=== PATIENT | female | born 1965 | race Caucasian/White ===

== ENCOUNTER 2017-04-04 14:15 | Inpatient (IN) ==
[2017-04-04] MEDS ORDERED: 0.9 % Sodium Chloride 1,000 ML IVC ONE (15:13)
[2017-04-04] MEDS ORDERED: *HR* HYDROmorphone 2 MG/ML SYRINGE IVP ONE ×2 (15:21→16:27)
[2017-04-04] MEDS ORDERED: Ondansetron 4 MG/2 ML VIAL IVP PRN (15:21)
--- NOTE | 2017-04-04 15:33 | Emergency Department Note ---
Disposition Clinical Impression: Left leg pain, Vascular occlusion, Arterial occlusion, Peripheral vascular disease, Lower extremity arterial insufficiency, severe, left Disposition: Still a Patient Condition: Critical Referrals: Mazin Wan MD [Primary Care Provider] - Forms: ED Satisfaction Letter Extremity Problem HPI - General Chief complaint: ED Extremity Problem,Nontraumatic Stated complaint: LLE discoloration/pain Time Seen by Provider: 04/04/17 14:26 Source: patient, family Mode of arrival: wheelchair Limitations: no limitations Nursing Notes Reviewed: Yes Vital Signs Reviewed: Yes - History of Present Illness HPI Narrative: 52-year-old female presenting to the emergency department with left lower extremity pain and paresthesia. She says it started about 11 PM last night and has progressively been moving up her leg from her ankle to her knee. She came to the emergency room last night waited for approximately 2 hours in the waiting room and decided she did not want to wait any longer and left. She has severe 10 out of 10 pain around her knee, below her knee she is completely numb. She describes her pain as a sharp burning sensation. Moving the extremity makes the pain significantly worse. She states she was recently diagnosed with stage IV small cell lung cancer in November. She has had one session of chemotherapy. This was approximately 3 weeks ago. Pt Subjective Complaint: extremity pain, cold extremity Consistency: constant, Worsening Injury Location: left Pain Scale: 10 Quality: burning, sharp Improves with: nothing Worsens with: range of motion, weight bearing, walking Associated symptoms: Reports: denies other symptoms Context: history of peripheral vascular disease - Related Data Home Medications Medication Instructions Recorded Confirmed Metoprolol [Lopressor] 25 mg PO BID 01/27/16 03/29/17 metFORMIN [Glucophage] 500 mg PO BID 01/27/16 03/29/17 Diclofenac Sodium [Voltaren] 1 appl TP QID PRN 01/09/17 03/29/17 Dexamethasone 2 tab PO BID 03/29/17 03/29/17 Lactose-Reduced Food [Ensure 237 ml PO TID 03/29/17 03/29/17 Enlive] Morphine Sulfate SR (12 HR) [MS 1 tab PO Q12HR 03/29/17 03/29/17 Contin] Oxycodone HCl 1 - 2 tab PO Q4-6H PRN 03/29/17 03/29/17 metFORMIN [Glucophage] 500 mg PO BIDWM 03/29/17 03/29/17 Previous Rx's Medication Instructions Recorded Docusate [Colace] 100 mg PO BID #60 capsule 01/26/17 Pregabalin [Lyrica] 75 mg PO BID #60 capsule 01/26/17 Sennosides [Senna] 8.6 mg PO BID #60 tablet 01/26/17 Prochlorperazine Maleate 10 mg PO Q6HR PRN #90 tablet 01/31/17 [Compazine] GuaiFENesin/Codeine [ROBITUSSIN 5 ml PO Q8HR PRN #120 ml 02/15/17 w/CODEINE] Citalopram Hydrobromide [Celexa] 40 mg PO DAILY #30 tab 02/20/17 Megestrol Acetate [Megace] 10 ml PO DAILY #300 mls 02/20/17 Morphine Sulfate SR (12 HR) [MS 3 tab PO Q8HR #270 tab 02/20/17 Contin] Temazepam [Restoril] 7.5 mg PO HS #30 capsule 02/20/17 LORazepam [Ativan] 0.5 - 1 mg PO BID PRN #30 tablet 03/05/17 Magic Mouthwash [Magic Mouthwash 10 ml PO QID PRN #240 ml 03/13/17 BLM] Lactose-Reduced Food [Ensure 237 ml PO TID #90 liquid 03/14/17 Enlive] Morphine Sulfate [Arymo ER] 30 mg PO BID #30 tab.po.er 03/29/17 Oxycodone HCl 10 mg PO Q2H PRN #150 tab 03/29/17 Allergies Allergy/AdvReac Type Severity Reaction Status Date / Time gabapentin Allergy Dizziness Verified 04/04/17 14:53 iodine Allergy Hives Verified 04/04/17 14:53 metronidazole [From Flagyl] Allergy Hives Verified 04/04/17 14:53 Penicillins Allergy Anaphylaxis Verified 04/04/17 14:53 All systems ED: reviewed and negative except as stated. Constitutional: Denies: fever, chills Cardiovascular: Denies: chest pain, palpitations, syncope Respiratory: Denies: wheezes, hemoptysis, stridor Gastrointestinal: Reports: as per HPI Genitourinary: Reports: as per HPI Musculoskeletal: Reports: as per HPI Integumentary: Reports: as per HPI Neurological: Reports: as per HPI Psychiatric: Reports: as per HPI Endocrine: Reports: as per HPI Hematological/Lymphatic: Reports: as per HPI Allergic/Immunologic: Reports: as per HPI Past Medical History - Past Medical History Medical history: Reports: cancer, diabetes, hypertension, other Surgical history: Reports: , cholecystectomy, hysterectomy, splenectomy Psychiatric history: Reports: anxiety, depression - Social History Smoking Status: Current every day smoker Smokeless Tobacco Status: No Alcohol use: Reports: none Drug use: Reports: none Physical Exam - General Limitations: no limitations General appearance: alert - Head Head exam: atraumatic, normocephalic, normal inspection - ENT ENT exam: normal exam, normal oropharynx - Neck Neck exam: Present: normal inspection, full ROM - Chest Chest inspection: Present: normal inspection, symmetric chest wall rise - Respiratory Respiratory exam: Present: normal lung sounds bilaterally - Cardiovascular Cardiovascular exam: Present: regular rate, normal rhythm, normal heart sounds - Abdominal Exam Abdominal exam: Present: soft, Non-Tender. Absent: tenderness, distention, guarding, rebound, rigidity - Expanded Lower Extremity Exam Upper leg exam: Present: laceration. Absent: swelling, ecchymosis Knee exam: Present: tenderness, erythema, pain with valgus, pain with varus Lower leg exam: Present: erythema, other (Cold on palpation, parasthesia) Foot/toe exam: Present: erythema, other (cold, parasthesias ) Neurovascular/Tendon exam: Present: pulse deficit, motor deficit, sensory deficit, extremity cold to touch, significant pain with passive ROM of distal joint. Absent: normal capillary refill, normal 2-point discrimination - Psychiatric Psychiatric exam: Present: normal affect, normal mood - Skin Skin exam: Present: warm, dry, intact, other (Left lower extremity appears red and mottled below the knee.) Course Course Narrative: 52-year-old female presents to the emergency department with a cold and numb left lower extremity from the knee distally. She has no history of A. fib or other clotting issues. She states she is currently being treated for stage IV small cell lung carcinoma. She also describes a history of peripheral vascular disease with stent placement in her femoral artery. On bedside Doppler, the posterior tibial and popliteal vessels have no blood flow. The femoral artery has moderate to mild flow. Pain medicine was ordered for the patient and an order for ABIs were placed. - Reevaluation(s) Reevaluation #1: ABIs were completed which shows the PT and DP pulses to be 0. ABIs on the left side are [address] Adan the vascular surgeon ent surgeon who recommended a CT aortogram with runoff and a heparin drip. The patient is allergic to iodine therefore we will give the patient Benadryl per protocol of the CT department before the CT aortogram. She states her allergic reaction consists of itching. Spoke to patient about risks of allergic reaction and she understands and agrees with going forward with the CT aortogram. we believe the importance of the CT aortogram greatly outweighs the risk of an allergic reaction to the iodine. Time: 16:15 Reevaluation #2: Upon reentry into the room, the patient states that her previous episode was more severe than itching. She states she felt she stopped breathing. She is not comfortable with going forward with the CT scan. A call out to the vascular surgeon Dr. Adan has been done. Time: 16:39 Reevaluation #3: The attending Dr. Plascencia spoke with Dr. Adan vascular surgeon. He recommends we perform an aortoiliac duplex and a left lower extremity arterial duplex. These have been ordered. Time: 16:47 Vital Signs Temperature 97.4 F L 04/04/17 14:49 Pulse Rate 73 04/04/17 14:49 Respiratory Rate 18 04/04/17 14:49 Blood Pressure 159/55 04/04/17 14:49 O2 Sat by Pulse Oximetry 100 04/04/17 14:49 Temperature 97.4 F L 04/04/17 14:49 Pulse Rate 73 04/04/17 14:49 Respiratory Rate 18 04/04/17 14:49 Blood Pressure 159/55 04/04/17 14:49 O2 Sat by Pulse Oximetry 100 04/04/17 14:49 Oxygen Delivery Oxygen Delivery Room Air Extremity Problem, Nontraumati - Medical Records Medical records reviewed: Yes I reviewed the patient's medical records. - Lab Data Lab results reviewed: Yes I reviewed the patient's lab results. - Radiology Data Radiology results reviewed: Yes I reviewed the patient's radiology results. - EKG Data EKG results narrative: Here rate is 73. Normal sinus rhythm. Normal axis. CA interval 147. QRS 86. QTc 430 Critical Care Time Critical Care Time: Yes Total Critical Care Time: 35 Attestation: Critical care time spent and medical management of acute life-threatening limb injury with occlusions of the arterial vessels of the left lower extremity requiring heparin as well as consultation with vascular surgery.
[2017-04-04] MEDS ORDERED: *HR* Heparin 5,000 UNIT/ML VIAL IVP ONE (16:19)
[2017-04-04] MEDS ORDERED: *HR* Heparin 5,000 UNIT/ML VIAL IVP PRN ×2 (16:19)
[2017-04-04] MEDS ORDERED: Heparin 25,000 UNIT/500 ML D5W 25,000 UNIT/500 ML MLS IVC SCH (16:30)
[2017-04-04] MEDS ORDERED: *HR* HYDROmorphone (PF) 1 MG/ML SYRINGE IVP ONE (16:51)
[2017-04-04 17:01] LABS: INR 1.6
[2017-04-04 17:03] LABS: Activated Partial Thrombo Time 27.7 Seconds (26.0-36.0)
[2017-04-04 17:07] LABS: BUN/Creatinine Ratio 17 (6-26); Blood Urea Nitrogen 13 mg/dL (7-20); Calcium 8.6 mg/dL (8.6-10.8); Carbon Dioxide 19 mEq/L (19-29); Chloride 97 mEq/L (98-109); Glucose 126 mg/dL (70-99); Osmolality,Calculated 260 (280-300); Potassium 4.8 mEq/L (3.5-4.5); Sodium 124 mEq/L (136-145); eGFR For African Americans > 60 (> 60); eGFR For Non-African Americans > 60 (> 60)
--- NOTE | 2017-04-04 17:11 | Emergency Department Note ---
Disposition Clinical Impression: Left leg pain, Vascular occlusion, Arterial occlusion, Peripheral vascular disease, Lower extremity arterial insufficiency, severe, left Disposition: Admitted As Inpatient Condition: Critical Referrals: Mazin Wan MD [Primary Care Provider] - Forms: ED Satisfaction Letter Time of Disposition: 17:24 Extremity Problem HPI - General Chief complaint: ED Extremity Problem,Nontraumatic Stated complaint: LLE discoloration/pain Time Seen by Provider: 04/04/17 14:26 Source: patient, family Mode of arrival: wheelchair Limitations: no limitations Nursing Notes Reviewed: Yes Vital Signs Reviewed: Yes - History of Present Illness HPI Narrative: 52-year-old female with history of hypertension, peripheral vascular disease with history of right femoropopliteal in 2013, arrives [facility] emergency department complaining of 2 days of left lower extremity pain and reduced sensation. The patient states that she came to the emergency department last night but she was not evaluated because she did not wait in line. The patient arrives here to the emergency department in large amount of plain in her left lower extremity with decreased sensation. The patient has a cold, pulseless, ecchymotic left lower extremity. The patient has no DP or PT pulses with an KODY that read 0 on both PT and DP pulses. The patient was initially signed out by Dr. Whitney. The patient had KODY here in the emergency department as well as labs. After speaking with Dr. Adan in vascular surgery, he requested that we perform CT in portogram with runoff but the patient has an allergy that is apparently anaphylaxis to iodine dye. After giving a call back to Dr. Adan, he requested arterial Doppler studies. These are being performed at this time. The patient was placed on heparin drip as well. After we obtain Doppler studies, we will reconsult Dr. Adan and determine plan and disposition. Consistency: constant, Worsening Injury Location: left Pain Scale: 10 Quality: burning, sharp Improves with: nothing Worsens with: range of motion, weight bearing, walking Associated symptoms: Reports: denies other symptoms - Related Data Home Medications Medication Instructions Recorded Confirmed Metoprolol [Lopressor] 25 mg PO BID 01/27/16 03/29/17 metFORMIN [Glucophage] 500 mg PO BID 01/27/16 03/29/17 Diclofenac Sodium [Voltaren] 1 appl TP QID PRN 01/09/17 03/29/17 Dexamethasone 2 tab PO BID 03/29/17 03/29/17 Lactose-Reduced Food [Ensure 237 ml PO TID 03/29/17 03/29/17 Enlive] Morphine Sulfate SR (12 HR) [MS 1 tab PO Q12HR 03/29/17 03/29/17 Contin] Oxycodone HCl 1 - 2 tab PO Q4-6H PRN 03/29/17 03/29/17 metFORMIN [Glucophage] 500 mg PO BIDWM 03/29/17 03/29/17 Previous Rx's Medication Instructions Recorded Docusate [Colace] 100 mg PO BID #60 capsule 01/26/17 Pregabalin [Lyrica] 75 mg PO BID #60 capsule 01/26/17 Sennosides [Senna] 8.6 mg PO BID #60 tablet 01/26/17 Prochlorperazine Maleate 10 mg PO Q6HR PRN #90 tablet 01/31/17 [Compazine] GuaiFENesin/Codeine [ROBITUSSIN 5 ml PO Q8HR PRN #120 ml 02/15/17 w/CODEINE] Citalopram Hydrobromide [Celexa] 40 mg PO DAILY #30 tab 02/20/17 Megestrol Acetate [Megace] 10 ml PO DAILY #300 mls 02/20/17 Morphine Sulfate SR (12 HR) [MS 3 tab PO Q8HR #270 tab 02/20/17 Contin] Temazepam [Restoril] 7.5 mg PO HS #30 capsule 02/20/17 LORazepam [Ativan] 0.5 - 1 mg PO BID PRN #30 tablet 03/05/17 Magic Mouthwash [Magic Mouthwash 10 ml PO QID PRN #240 ml 03/13/17 BLM] Lactose-Reduced Food [Ensure 237 ml PO TID #90 liquid 03/14/17 Enlive] Morphine Sulfate [Arymo ER] 30 mg PO BID #30 tab.po.er 03/29/17 Oxycodone HCl 10 mg PO Q2H PRN #150 tab 03/29/17 Allergies Allergy/AdvReac Type Severity Reaction Status Date / Time gabapentin Allergy Dizziness Verified 04/04/17 14:53 iodine Allergy Hives Verified 04/04/17 14:53 metronidazole [From Flagyl] Allergy Hives Verified 04/04/17 14:53 Penicillins Allergy Anaphylaxis Verified 04/04/17 14:53 All systems ED: reviewed and negative except as stated. Constitutional: Denies: fever, chills Cardiovascular: Denies: chest pain, palpitations, syncope Respiratory: Denies: wheezes, hemoptysis, stridor Gastrointestinal: Reports: as per HPI Genitourinary: Reports: as per HPI Musculoskeletal: Reports: as per HPI Integumentary: Reports: as per HPI Neurological: Reports: as per HPI Psychiatric: Reports: as per HPI Endocrine: Reports: as per HPI Hematological/Lymphatic: Reports: as per HPI Allergic/Immunologic: Reports: as per HPI Past Medical History - Past Medical History Attestation: Yes The following information was validated with the patient. Source: patient, old records reviewed Medical history: Reports: cancer, diabetes, hypertension, other Surgical history: Reports: , cholecystectomy, hysterectomy, splenectomy , LE bypass (Right LE fem-pop) Psychiatric history: Reports: anxiety, depression - Social History Smoking Status: Current every day smoker Smokeless Tobacco Status: No Alcohol use: Reports: none Drug use: Reports: none Physical Exam - General Limitations: no limitations General appearance: alert, in no apparent distress - Head Head exam: atraumatic, normocephalic, normal inspection - Eye Eye exam: Present: normal appearance, PERRL, EOMI - ENT ENT exam: normal exam, normal oropharynx, mucous membranes moist - Neck Neck exam: Present: normal inspection, full ROM, trachea midline - Chest Chest inspection: Present: normal inspection, symmetric chest wall rise - Respiratory Respiratory exam: Present: normal lung sounds bilaterally - Cardiovascular Cardiovascular exam: Present: regular rate, normal rhythm, normal heart sounds - Abdominal Exam Abdominal exam: Present: soft, Non-Tender. Absent: tenderness, distention, guarding, rebound, rigidity - Expanded Lower Extremity Exam Lower leg exam: Present: tenderness, ecchymosis, other (No palpable pulse distant to thready femoral pulse on left. No DP or PT pulse on left. Ecchymothic and cold LLE. ) Course - Consultations Consultation #1: After speaking with the vascular surgeon, Dr. Adan, he states that he will take the patient to the operating room this evening. The patient has been placed on a heparin drip. Patient's consent for surgery has been placed by vascular surgery. Time: 17:23 Vital Signs Temperature 97.4 F L 04/04/17 14:49 Pulse Rate 73 04/04/17 14:49 Respiratory Rate 18 04/04/17 14:49 Blood Pressure 159/55 04/04/17 14:49 O2 Sat by Pulse Oximetry 100 04/04/17 14:49 Temperature 97.4 F L 04/04/17 14:49 Pulse Rate 73 04/04/17 14:49 Respiratory Rate 18 04/04/17 14:49 Blood Pressure 159/55 04/04/17 14:49 O2 Sat by Pulse Oximetry 100 04/04/17 14:49 Oxygen Delivery Oxygen Delivery Room Air Extremity Problem, Nontraumati - Lab Data Result diagrams: 04/04/17 16:44 Lab Results 04/04/17 04/04/17 04/04/17 Range/Units 16:44 16:44 16:46 PT 17.0 H (9.4-12.1) Seconds INR 1.6 APTT 27.7 (26.0-36.0) Seconds Sodium 124 L (136-145) mEq/L Potassium 4.8 H (3.5-4.5) mEq/L Chloride 97 L (98-109) mEq/L Carbon Dioxide 19 (19-29) mEq/L BUN 13 (7-20) mg/dL Creatinine 0.78 (0.57-1.11) mg/dL Est GFR ( Amer) > 60 (> 60) Est GFR (Non-Af Amer) > 60 (> 60) BUN/Creatinine Ratio 17 (6-26) Glucose 126 H (70-99) mg/dL Calculated Osmolality 260 L (280-300) Lactic Acid 2.1 (0.5-2.2) mmol/L Calcium 8.6 (8.6-10.8) mg/dL
--- NOTE | 2017-04-04 17:29 | Anesthesia Evaluation PreOp ---
Date of Encounter: 04/04/17 Time of Encounter: 17:58 - Past History Planned Operation: L Leg revascularization Cardiac History: Denies any Significant Hx Pulmonary History: Smoker, COPD, Other (stage IV metastatic lung CA) [employer] History: Denies Any Significant HX Other Medical History: Denies Any Significant HX Anesthesia History: No Prior Anesthetic Complications Alcohol Use: none Drug use: none Medications and Allergies Metoprolol [Lopressor] 25 mg PO BID 01/27/16 [History] metFORMIN [Glucophage] 500 mg PO BID 01/27/16 [History] Diclofenac Sodium [Voltaren] 1 appl TP QID PRN 01/09/17 [History] Docusate [Colace] 100 mg PO BID #60 capsule 01/26/17 [Rx] Pregabalin [Lyrica] 75 mg PO BID #60 capsule 01/26/17 [Rx] Sennosides [Senna] 8.6 mg PO BID #60 tablet 01/26/17 [Rx] Prochlorperazine Maleate [Compazine] 10 mg PO Q6HR PRN #90 tablet 01/31/17 [Rx] GuaiFENesin/Codeine [ROBITUSSIN w/CODEINE] 5 ml PO Q8HR PRN #120 ml 02/15/17 [Rx ] Citalopram Hydrobromide [Celexa] 40 mg PO DAILY #30 tab 02/20/17 [Rx] Megestrol Acetate [Megace] 10 ml PO DAILY #300 mls 02/20/17 [Rx] Morphine Sulfate SR (12 HR) [MS Contin] 3 tab PO Q8HR #270 tab 02/20/17 [Rx] Temazepam [Restoril] 7.5 mg PO HS #30 capsule 02/20/17 [Rx] LORazepam [Ativan] 0.5 - 1 mg PO BID PRN #30 tablet 03/05/17 [Rx] Magic Mouthwash [Magic Mouthwash BLM] 10 ml PO QID PRN #240 ml 03/13/17 [Rx] Lactose-Reduced Food [Ensure Enlive] 237 ml PO TID #90 liquid 03/14/17 [Rx] Dexamethasone 2 tab PO BID 03/29/17 [History] Lactose-Reduced Food [Ensure Enlive] 237 ml PO TID 03/29/17 [History] Morphine Sulfate SR (12 HR) [MS Contin] 1 tab PO Q12HR 03/29/17 [History] Morphine Sulfate [Arymo ER] 30 mg PO BID #30 tab.po.er 03/29/17 [Rx] Oxycodone HCl 1 - 2 tab PO Q4-6H PRN 03/29/17 [History] Oxycodone HCl 10 mg PO Q2H PRN #150 tab 03/29/17 [Rx] metFORMIN [Glucophage] 500 mg PO BIDWM 03/29/17 [History] Allergies gabapentin Allergy (Verified 04/04/17 14:53) Dizziness iodine Allergy (Verified 04/04/17 14:53) Hives metronidazole [From Flagyl] Allergy (Verified 04/04/17 14:53) Hives Penicillins Allergy (Verified 04/04/17 14:53) Anaphylaxis - Meds/Allergy Pre-op Review Medications Reviewed: Yes Allergies Reviewed: Yes Beta Blockers on Current Med List: Yes Anesthesia Results - Labs 04/04/17 16:44 - Imaging EKG: report reviewed, image reviewed (SR; LAE) Additional studies: TTE: LVEF 50-55% no significant valvular disease no tamponade Anesthesia Exam Last Vital Signs Temp 97.4 F L 04/04/17 14:49 Pulse 73 04/04/17 14:49 Resp 18 04/04/17 14:49 BP 159/55 04/04/17 14:49 Pulse Ox 100 04/04/17 14:49 Weight: 37 kg (BMI 13.6) - HEENT Pupil (Motor): Pupils equal, EOMI Mallampati: II - [employer] LOC: Oriented [employer] Motor: Deficit LLE - Cardiac Rhythm: Regular Murmur: None - Pulmonary Breath Sounds: bilateral Clear Respiratory Effort: Symmetrical Anesthesia Assess/Plan ASA Score: 4, E Modified [place] Scale for Level of Consciousness: Cooperative, oriented, and tranquil Anesthetic Plan: General Monitoring Plan: Standard Monitors, A-Line Recovery Plan: PACU
[2017-04-04] MEDS ORDERED: Heparin 1,000 UNITS/500 mL NS 500 ML ONE (17:37)
--- NOTE | 2017-04-04 17:39 | Vascular/Endovascular H&P ---
Date of Encounter: 04/07/17 Time of Encounter: 17:00 Assessment and Plan (1) Ischemia of left lower extremity Current Visit: Yes Status: Acute The patient has acute left lower extremity ischemia of more than 24 hours duration. She has lost motor function in the left foot. She has minimal sensation in the left foot. Her arterial duplex reveals a left popliteal and tibial artery occlusion. She has an occluded left common iliac artery as well. Her pulse exam is diminished. She has pulsatile flow in the common and superfical femoral arteries by duplex. The patient has been scheduled for emergency thrombectomy with possible bypass. The risks, benefits and alternatives were discussed and all questions were answered. The patient was informed that due to her delayed presentation and severity of ischemia noted on clinical exam, she is at high risk for limb loss. (2) Essential hypertension Current Visit: Yes Status: Acute (3) Lung cancer Current Visit: Yes Status: Acute Qualifiers: Laterality: unspecified laterality Lung location: unspecified part of lung Qualified Code(s): C34.90 - Malignant neoplasm of unspecified part of unspecified bronchus or lung (4) Diabetes type 2, uncontrolled Current Visit: Yes Status: Acute Qualifiers: Diabetes mellitus complication status: with circulatory complication Diabetes mellitus complication detail: with peripheral angiopathy without gangrene Diabetes mellitus emt intermediate insulin use: unspecified penitentiary insulin use status Qualified Code(s): E11.51 - Type 2 diabetes mellitus with diabetic peripheral angiopathy without gangrene; E11.65 - Type 2 diabetes mellitus with hyperglycemia (5) Diabetes Current Visit: No Status: Acute Qualifiers: Diabetes mellitus type: due to underlying condition Diabetes mellitus complication status: without complication Diabetes mellitus emt intermediate insulin use: without emt intermediate use Qualified Code(s): E08.9 - Diabetes mellitus due to underlying condition without complications (6) Tobacco abuse Current Visit: Yes Status: Acute (7) Deep vein thrombosis (DVT) Current Visit: Yes Status: Acute The patient was noted to have a large left lower extremity DVT on duplex during her arterial study. She will require anticoagulation. Qualifiers: DVT location: lower extremity Affected thrombotic vein of extremity: femoral Chronicity: acute Laterality: left Qualified Code(s): I82.412 - Acute embolism and thrombosis of left femoral vein (8) Chronic anemia Current Visit: Yes Status: Chronic The patient has chronic anemia. She has previously required blood transfusion. Her hemoglobin is currently 4.2. She will receive 2 units of PRBCs now and then proceed with emergency surgery. History of Present Illness Chief complaint: Left leg pain HPI: Ms. Genao is a 52 year old female with a history of peripheral vascular disease who was recently diagnosed with stage IV lung cancer. She has undergone radiation therapy. The patient reports that she developed left leg pain yesterday. She came to the ER, but then went home after staying for only 15 minutes. She returned to the ER today with compaints of a cold pulses left lower extremity without the ability to move it. She also had severely decreased sensation. She underwent vascular labs and they were abnormal. vascular surgery was then consulted for further evaluation. She severe left foot pain and parasthesias. She denies any palpitations. She denies chest pain or shortness of breath. Past Med Surg Social Fam HX - Past Medical History Medical history: cancer, diabetes, hypertension, other Psychiatric history: anxiety, depression - Past Surgical History Surgical History: , cholecystectomy, hysterectomy, splenectomy, LE bypass (Right LE fem-pop) - Social History Smoking Status: Current every day smoker Smokeless Tobacco Status: No Alcohol use: none Drug use: none Medications and Allergies Metoprolol [Lopressor] 25 mg PO BID 01/27/16 [History] Diclofenac Sodium [Voltaren] 1 appl TP QID PRN 01/09/17 [History] Docusate [Colace] 100 mg PO BID #60 capsule 01/26/17 [Rx] Pregabalin [Lyrica] 75 mg PO BID #60 capsule 01/26/17 [Rx] Sennosides [Senna] 8.6 mg PO BID #60 tablet 01/26/17 [Rx] Prochlorperazine Maleate [Compazine] 10 mg PO Q6HR PRN #90 tablet 01/31/17 [Rx] GuaiFENesin/Codeine [ROBITUSSIN w/CODEINE] 5 ml PO Q8HR PRN #120 ml 02/15/17 [Rx ] Citalopram Hydrobromide [Celexa] 40 mg PO DAILY #30 tab 02/20/17 [Rx] Megestrol Acetate [Megace] 10 ml PO DAILY #300 mls 02/20/17 [Rx] Temazepam [Restoril] 7.5 mg PO HS #30 capsule 02/20/17 [Rx] LORazepam [Ativan] 0.5 - 1 mg PO BID PRN #30 tablet 03/05/17 [Rx] Magic Mouthwash [Magic Mouthwash BLM] 10 ml PO QID PRN #240 ml 03/13/17 [Rx] Lactose-Reduced Food [Ensure Enlive] 237 ml PO TID #90 liquid 03/14/17 [Rx] Dexamethasone 4 mg PO DAILY 03/29/17 [History] Oxycodone HCl 10 mg PO Q2H PRN #150 tab 03/29/17 [Rx] metFORMIN [Glucophage] 500 mg PO BIDWM 03/29/17 [History] Morphine Sulfate [Arymo ER] 60 mg PO BID 04/05/17 [History] Allergies gabapentin Allergy (Verified 04/04/17 14:53) Dizziness iodine Allergy (Verified 04/04/17 14:53) Hives metronidazole [From Flagyl] Allergy (Verified 04/04/17 14:53) Hives Penicillins Allergy (Verified 04/04/17 14:53) Anaphylaxis All Systems Review: A 10-system review of systems was performed and is negative for pertinent findings except as documented above in the HPI. - Constitutional Constitutional: anorexia, no chills, no fever(s) - Cardiovascular Cardiovascular: no chest pain at rest, no chest pain with exertion, no dyspnea at rest, no dyspnea on exertion Exam Vital Signs, Last 4 Hours Temp Pulse Resp BP Pulse Ox 04/04/17 14:49 97.4 F L 73 18 159/55 100 General: Present: Conversant, No Apparent Distress, Other (thin, cachectic) HEENT: Present: Atraumatic, Normocephaly, Trachea midline, Pupils equal Neck: Absent: JVD, Left Carotid bruit, Right Carotid bruit Cardiac: Present: Reg Rate and Rhythm, Normal S1 and S2, No Murmur Lungs: Present: Normal Breath Sounds, No Wheeze, Rales, Rhonchi Neuro: Present: Alert and responsive, Motor nerves grossly intact (ecept no motor function in left foot), Sensory nerves grossly intact (decreased sensation left foot) Abdomen: Present: Soft, Non-tender. Absent: Masses Vascular: Present: Pulse, absent (left dorsalis pedia and posterior tibial arteries.), Pulse, normal (right lower extremity), Cyanosis (left foot and calf with mottling to left proximal leg), Color/Temperature (left foot and leg cool) Skin: Present: No rashes noted on visualized skin Results 04/07/17 03:45 04/07/17 03:45 Lab Results, Last 24 hours 04/04/17 04/04/17 16:44 16:46 INR 1.6 APTT 27.7 Sodium 124 L Potassium 4.8 H Chloride 97 L Carbon Dioxide 19 BUN 13 Creatinine 0.78 Glucose 126 H Calcium 8.6 - Imaging / Other Tests Non Invasive Vascular Testing: image reviewed (No left distal popliteal or tibial flow noted, Incidental left lower extremity DVT noted on arterial study.)
[2017-04-04] MEDS ORDERED: Vancomycin 1,000 MG VIAL ONE (17:42)
[2017-04-04] MEDS ORDERED: Heparin 1,000 UNITS/500 mL NS 1,000 ML ONE (17:42)
[2017-04-04 18:15] LABS: Mean Corpuscular Hemoglobin 27.5 pg (28.0-33.3); Mean Platelet Volume 10.9 fL (9.4-12.4); Nucleated Red Blood Cells 9.9 /100 WBC (0); Platelet Count 470 K/mcL (140-400); Red Blood Count 1.53 M/mcL (3.82-4.97); Red Cell Distribution Width 23.5 % (11.5-14.5)
[2017-04-04 18:18] LABS: Mean Corpuscular Volume 86.9 fL (83.0-100.0)
[2017-04-04 18:19] LABS: Mean Corpuscular HGB Conc 31.6 g/dL (31.6-35.5)
[2017-04-04] MEDS ORDERED: Lidocaine -MPF 2% 2 ML VIAL ONE (18:20)
[2017-04-04] MEDS ORDERED: *HR* Heparin 5,000 UNIT/ML VIAL ONE (18:20)
[2017-04-04] MEDS ORDERED: *HR* Propofol 200 MG/20 ML VIAL IVP ONE (18:20)
[2017-04-04] MEDS ORDERED: Ondansetron 4 MG/2 ML VIAL ONE ×2 (18:20→21:32)
[2017-04-04] MEDS ORDERED: Dexamethasone 4 MG/ML VIAL ONE ×2 (18:20→21:32)
[2017-04-04] MEDS ORDERED: *HR* Midazolam HCl 2 MG/2 ML VIAL ONE (18:20)
[2017-04-04] MEDS ORDERED: *HR* Rocuronium Bromide 50 MG/5 ML VIAL ONE (18:20)
[2017-04-04] MEDS ORDERED: *HR* Phenylephrine 10 MG/ML VIAL ONE (18:20)
[2017-04-04] MEDS ORDERED: *HR* Succinylcholine 200 MG/10 ML VIAL IVP ONE (18:20)
[2017-04-04] MEDS ORDERED: *HR* FentaNYL (PF) 100 MCG/2 ML VIAL ONE (18:20)
[2017-04-04 18:21] LABS: Hematocrit 13.3 % (35.3-44.9); Hemoglobin 4.2 g/dL (11.5-15.4)
[2017-04-04 18:47] LABS: Monocytes # 1.8 K/mcL (0.0-1.3)
[2017-04-04 18:49] LABS: Anisocytosis 3+ (Not Present); Hypochromasia Present (Not Present)
[2017-04-04 18:57] LABS: Basophilic Stippling 3+ (Not Present); Howell-Jolly Bodies 3+ (Not Present); Platelet Estimate Normal (Normal)
[2017-04-04 18:58] LABS: Polychromasia 3+ (Not Present)
[2017-04-04] MEDS ORDERED: Clindamycin 600 MG/50 ML 600 MG/50 ML IV.SOLN IVPB ONE (19:56)
--- NOTE | 2017-04-04 21:16 | Operative Note ---
Date of procedure: 04/04/17 Pre-op diagnosis: Acute left lower extremity ichemia Post-op diagnosis: same Procedure: Left lower extremity thrombectomy via leg incision using 3, 4 and 5 tur[place] islander rafa embolectomy catheters. Complications: None Anesthesia: KAMIA Surgeon: Chema Adan Estimated blood loss (cc): 50 Specimen: left lower extremity thrombus Condition: stable Disposition: PACU Procedure in Detail: Indications: The patient is a 52 year old female with a history of peripheral vascular disease who developed acute leg pain yesterday. She presented to the ER, but left after 15 minutes. She returned today with a cold and pulseless left lower extremity. She was found to have no motor function and markedly diminished sensation. Her KODY was 0.0. Emergent revascularization was recommended for possible limb salvage. Procedure: The patient was identified in the preoperative area. The risks, benefits and alternatives were discussed and all questions were answered. The patient was taken to the operating room and placed in the supine position on the operating room table. After the induction of general endotracheal anesthesia, the patient was prepped and draped in the normal sterile fashion. An oblique incision was made in the left medial leg sharply. Hemostasis was then obtained with electrocautery. Through a process of blunt, sharp and electrocautery dissection, the subcutanesous tissues and facial layers were traversed. The popliteal, anterior tibial and tibioperoneal trunk arteries were dissected and surrounded with vessel loops. The patient received a bolus of heparin and the vessels were occluded with the vessel loops. A transverse arteriotomy was made low on the left popliteal artery. No flow was noted on release of the proximal loop. A 4 [place] islander rafa catheter was passed into the proximally and inflated. It was withdrawn and significant acute thrombus and chronic embolic material was retrieved. Sluggish flow was noted. A 5 [place] islander was then passed proximally and additional thrombus was retrieved. After multiple negative passes pulsatile antegrade flow was noted. Heparinized saline was infused into the lumen and the vessel was reoccluded. A 3 [place] island[place] rafa catheter was passed distally into the tibioperoneal trunk and anterior tibial arteries. Thrombus was retrieved from each vessel. After multiple negative passes, no additional thrombus was retrieved. No significant retrograde flow was noted. The vessels were flushed with heparinized saline. The arteriotomy was reapproximated with 6-0 Prolene. Flow was restored. A polyphasic signal was present in the distal popliteal artery, but no signal was identified in the posterior tibial or dorsalis pedis arteries. The wound was irrigated with antibiotic containing saline. Hemostasis was obtained with electrocautery. The wound was reapproximated with 2-0 and 3-0 vicryl. Skin was reapproximated with sulma. A sterile dressing was applied. The patient was extubated and taken to the recover room in stable condition.
[2017-04-04 21:38] LABS: Hematocrit 19.7 % (35.3-44.9); Hemoglobin 7.1 g/dL (11.5-15.4)
--- NOTE | 2017-04-04 21:57 | Anesthesia Evaluation Post Op ---
Date of Encounter: 04/04/17 Time of Encounter: 21:57 - Vital Signs Vital Signs: Vital Signs/O2 Sat, Most Current Temp Pulse Resp BP Pulse Ox 98.2 F 73 13 156/82 100 04/04/17 21:45 04/04/17 21:45 04/04/17 21:45 04/04/17 21:45 04/04/17 21:45 - Lungs Lungs: Clear Ascult./Percussion - Airway Airway: Non-obstructed - Cardiovascular Regular Rate - Mental Status Mental Status: Asleep with brisk response to light stimulation - Pain Pain Scale: 0 Pain Scale used: Numeric (1 - 10) - Nausea Vomiting Nausea Vomiting: Not Present - Hydration Hydration: NPO, Has not voided - Discharge PostOp Status: Transfer Patient to floor
[2017-04-04] MEDS ORDERED: Naloxone 0.4 MG/ML INJ IVP PRN (23:36)
[2017-04-04] MEDS ORDERED: *HR* OxyCODONE Immed Rel 5 MG TABLET PO PRN ×3 (23:36)
[2017-04-04] MEDS ORDERED: *HR* Labetalol 20 MG/4 ML SYRINGE IVP PRN (23:36)
[2017-04-04] MEDS ORDERED: Dextrose Gel 15 GM PO PRN ×2 (23:36)
[2017-04-04] MEDS ORDERED: *HR* Dextrose 50 % in Water (Syg) 50 ML SYRINGE IVP PRN (23:36)
[2017-04-04] MEDS ORDERED: D5% in Water 1,000 ML IVC PRN (23:36)
[2017-04-04] MEDS ORDERED: *HR* Morphine 2 MG/ML SYRINGE IVP PRN (23:36)
[2017-04-04] MEDS ORDERED: *HR* Promethazine 25 MG/ML VIAL IVP PRN (23:36)
[2017-04-05] MEDS: *HR* Metoprolol 5 MG/5 ML VIAL IVP SCH ×4 (00:22→17:45)
[2017-04-05] MEDS: Insulin LISPRO 300 UNITS/3 ML VIAL SQ SCH ×5 (00:25→20:25)
[2017-04-05] MEDS ORDERED: Clindamycin 600 MG/50 ML 600 MG/50 ML IV.SOLN IVPB ONE (02:00)
[2017-04-05 02:11] LABS: Basophils # 0.1 K/mcL (0.0-0.2); Basophils % 0.3 %; Eosinophils # 0.1 K/mcL (0.0-0.6); Eosinophils % 0.5 %; Hemoglobin 7.4 g/dL (11.5-15.4); Immature Granulocytes % 5.1 % (0-4); Lymphocytes # 1.4 K/mcL (0.6-4.6); Lymphocytes % 6.3 %; Mean Corpuscular HGB Conc 33.6 g/dL (31.6-35.5); Mean Corpuscular Hemoglobin 30.8 pg (28.0-33.3); Mean Corpuscular Volume 91.7 fL (83.0-100.0); Mean Platelet Volume 10.6 fL (9.4-12.4); Monocytes # 2.6 K/mcL (0.0-1.3); Monocytes % 11.7 %; Neutrophils # 17.1 K/mcL (1.6-8.9); Nucleated Red Blood Cells 16.3 /100 WBC (0); Platelet Count 352 K/mcL (140-400); Segmented Neutrophils % 76.1 %
[2017-04-05] MEDS: Heparin 25,000 UNIT/500 ML D5W 25,000 UNIT/500 ML MLS IVC SCH (02:14)
[2017-04-05] MEDS ORDERED: 0.9 % Sodium Chloride 250 ML ONE ×2 (02:26→13:04)
[2017-04-05 02:41] LABS: Anisocytosis 2+ (Not Present); Basophilic Stippling 1+ (Not Present); Howell-Jolly Bodies 3+ (Not Present); Hypochromasia Present (Not Present); Platelet Estimate Normal (Normal)
[2017-04-05 02:42] LABS: Polychromasia 2+ (Not Present)
[2017-04-05 06:00] LABS: BUN/Creatinine Ratio 13 (6-26); Blood Urea Nitrogen 9 mg/dL (7-20); Calcium 8.1 mg/dL (8.6-10.8); Carbon Dioxide 16 mEq/L (19-29); Chloride 106 mEq/L (98-109); Glucose 154 mg/dL (70-99); Osmolality,Calculated 272 (280-300); Potassium 3.9 mEq/L (3.5-4.5); Sodium 130 mEq/L (136-145); eGFR For African Americans > 60 (> 60); eGFR For Non-African Americans > 60 (> 60)
[2017-04-05] MEDS: *HR* Heparin 5,000 UNIT/ML VIAL IVP PRN ×3 (06:33→20:37)
--- NOTE | 2017-04-05 07:25 | Arterial Study Report ---
LE Arterial Physiologic Study Patient Name:Litzy Genao Order Number:[id number] Procedure Date:04/04/2017 Date:1965Age:52 yrs Gender:Female Lt BP:141 / mmHg Rt.BP:151 / mmHgHeart Rate: Location:[facility] ED Room #: ER15 Temperer:Verito Copeland Referring MD:Tyler Plascencia, data warehouse consultant:Phoenix Hirsch MD:Chema Adan MD Primary Indications:cold leg Impressions: The right KODY and waveforms are normal. Right KODY 1.05. The left KODY and waveforms are consistent with critical disease. Left KODY 0.0. Recommendations: Further evaluation is recommended. After imaging the patient returned to their room. Gave vascular preliminary results to Francesca Mancini DO in emergency department on 04/04/2017 at 16:05. Test completed on 04/04/2017 at 4:00:00 pm. Critical findings reported to Francesca Mancini DO in person at 4:05:00 pm on 04/04/2017 by Verito Copeland. Findings LE Arterial Physiologic Exam: Segmental Pressures: Right: The right posterior tibial pressure is 158 mmHg with an index of 1.05. The right dorsalis pedis pressure is 142 mmHg with an index of 0.94. PVR: Right: The PVR waveforms are normal in the right ankle. Left: The PVR waveforms are absent in the left ankle. Segmental Pressures Side Location Pressure Index Result Right Posterior Tibial 158 1.05 Right Dorsalis Pedis 142 0.94 Left Posterior Tibial 0 Left Dorsalis Pedis 0 Ankle Brachial Index Right Systolic Diastolic KODY Brachial 151 1.05 Dorsalis Pedis 142 0.94 Posterior Tibial 158 1.05 Left Systolic Diastolic KODY Brachial 141 Updated by Chema Adan MD on 04/05/2017 7:17:35 AM with Status of Final electronically signed on 04/05/2017 7:18:04 AM with status of Final
--- NOTE | 2017-04-05 07:28 | Arterial Study Report ---
LE Arterial Duplex Patient Name:Litzy Genao Order Number:[id number] Procedure Date:04/04/2017 Date:1965Age:52 yrs Gender:Female Location:[facility] ED Room #: ER15 Brick Setter:Alessandra Rutherford RVT Referring MD:Tyler Plascencia, insole tacker:Phoenix Hirsch MD:Chema Adan MD Risk Factors Yes/No Hypertension Yes Diabetes Yes Hypercholesterolemia No Smoking Current Yes Hx of CAD/PTCA No Previous Vascular Surgery Yes Impressions: The left femoral and proximal popliteal arteires are patent. The left tibial arteries are occluded. A left common femoral through tibial vein is also identified on this exam. Recommendations: After imaging the patient was admitted to the hospital. Test completed on 04/04/2017 at 5:12:41 pm. Critical findings reported to Chema Adan and Tyler Plascencia in person at 5:12:00 pm on 04/04/2017 by Alessandra Rutherford RVT. Findings Prior Study: No prior study available for comparison. LE Duplex Side Vessel PSV EDV Assessment Left Common Femoral 88 14 Left Prox Superficial Femoral 55 7 Left Mid Superficial Femoral 49 7 Left Distal Superficial Femoral 19 Left Tibioperoneal Trunk 17 Left Prox Posterior Tibial 0 occluded Left Proximal Peroneal 0 occluded Left Popliteal 13 KODY Updated by Chema Adan MD on 04/05/2017 7:24:21 AM electronically signed on 04/05/2017 7:24:37 AM with status of Final
--- NOTE | 2017-04-05 07:31 | Arterial Study Report ---
Aorto Iliac Duplex Patient Name:Litzy Genao Order Number:[id number] Procedure Date:04/04/2017 Date:1965Age:52 yrs Gender:Female Location:[facility] ED Room #: ER15 Supervisor Network Control Operators:Alessandra Rutherford RVT Referring MD:Tyler Plascencia, digital cartographic technician:Phoenix Hirsch MD:Chema Adan MD Risk Factors Yes/No Hypertension Yes Diabetes Yes Hypercholesterolemia No Smoking Current Yes Hx of CAD/PTCA No Previous Vascular Surgery Yes Impressions: The aorta and right iliac arteries are hemodynamically well maintained. The left iliac arteries are not clearly identified. Recommendations: Further evaluation is recommended. After imaging the patient was admitted to the hospital. Test completed on 04/04/2017 at 5:03:43 pm. Critical findings reported to Chema Adan and Tyler Plascencia in person at 5:03:01 pm on 04/04/2017 by Alessandra Rutherford RVT. Findings Aortic Duplex: The PSV is 79 cm/s in the proximal aorta. The PSV is 90 cm/s in the mid aorta. The PSV is 104 cm/s in the distal aorta. The PSV is 196 cm/s in the right common iliac artery. KODY Right 1.05 Left 0-no pulse. Prior Study: No prior study available for comparison. Aortic Duplex Results Vessel PSV EDV AP Diameter TRV Diameter Proximal Aorta 79 17 1.1 0.9 Mid Aorta 90 14 1 1.1 Distal Aorta 104 12 0.8 1 Right Common Iliac Artery 196 18 Updated by Chema Adan MD on 04/05/2017 7:25:41 AM electronically signed on 04/05/2017 7:26:24 AM with status of Final
--- NOTE | 2017-04-05 08:09 | Vascular/Endovas Progress Note ---
Date of Encounter: 04/07/17 Time of Encounter: 07:50 - Assessment and plan (1) Ischemia of left lower extremity Current Visit: Yes Status: Acute The patient presented with acute left lower extremity ischemia of more than 24 hours duration. She underwent emergent left lower extremity thrombectomy last night. Despite the removal of all thrombus, her left pedal signals remain absent, her left foot has not motor function and continues to have decreased sensation. Her left foot is cyanotic. The patient will ultimately require amputation. At this time, she is not ready to consider it. However, upon discussion of her medical comorbidites along with her need for amputation, she is agreeable to hospice consultation. PT, OT and manager social will also be consulted. (2) Essential hypertension Current Visit: Yes Status: Acute (3) Lung cancer Current Visit: Yes Status: Chronic Qualifiers: Laterality: unspecified laterality Lung location: unspecified part of lung Qualified Code(s): C34.90 - Malignant neoplasm of unspecified part of unspecified bronchus or lung (4) Diabetes type 2, uncontrolled Current Visit: Yes Status: Acute Qualifiers: Diabetes mellitus complication status: with circulatory complication Diabetes mellitus complication detail: with peripheral angiopathy without gangrene Diabetes mellitus terminologist insulin use: unspecified fci insulin use status Qualified Code(s): E11.51 - Type 2 diabetes mellitus with diabetic peripheral angiopathy without gangrene; E11.65 - Type 2 diabetes mellitus with hyperglycemia (5) Diabetes Current Visit: No Status: Acute Qualifiers: Diabetes mellitus type: due to underlying condition Diabetes mellitus complication status: without complication Diabetes mellitus terminologist insulin use: without terminologist use Qualified Code(s): E08.9 - Diabetes mellitus due to underlying condition without complications (6) Tobacco abuse Current Visit: Yes Status: Acute (7) Deep vein thrombosis (DVT) Current Visit: Yes Status: Acute The patient was noted to have a large left lower extremity DVT on duplex during her arterial study. She will remain on anticoagulation. Due to her anemia, she may require an IVC filter if anticoagulation needs to be discontinued. Qualifiers: DVT location: lower extremity Affected thrombotic vein of extremity: femoral Chronicity: acute Laterality: left Qualified Code(s): I82.412 - Acute embolism and thrombosis of left femoral vein (8) Chronic anemia Current Visit: Yes Status: Chronic The patient has chronic anemia of uncertain etiology. She denies any signs or symptoms of GI bleeding. She has previously required blood transfusion. Her hemoglobinwas 4.2 on admission. She will receive 3 units of PRBCs and her hemoglobin is 7.4 this mornign. She remains hemodynamically stable without evidence of ongoing blood loss. Will continue to follow her hemoglobin. - Subjective Interval history: The patient is resting comfortably and is easily arousable. She denies left foot pain at this time. She also reports that she is unable to move it. Vital Signs, Last 4 Hours Temp Pulse Resp BP Pulse Ox 04/05/17 07:07 98.1 F 72 18 147/69 97 04/05/17 05:58 98.4 F 73 14 132/71 99 - Physical Examination General: Present: Conversant, No Apparent Distress HEENT: Present: Atraumatic Cardiac: Present: Reg Rate and Rhythm Lungs: Present: Normal Breath Sounds Neuro: Present: Alert and responsive, Other (motor function is absent in the left foot and ankle) Vascular: Present: Pulse, absent (left pedal pulses absent), Pulse, normal ( right lower extremity), Cyanosis (left lower extreity cyanosis to proximal leg) , Color/Temperature (left leg and foot are cold), Surgical incisions (clean and dry without hematoma) Abdomen: Present: Soft Results 04/07/17 03:45 04/07/17 03:45 Lab Results, Last 24 hours 04/04/17 04/05/17 04/05/17 21:31 00:50 05:30 WBC 22.5 H Hgb 7.1 L D 7.4 L Hct 19.7 L 22.0 L Plt Count 352 APTT Sodium 130 L Potassium 3.9 Chloride 106 Carbon Dioxide 16 L BUN 9 Creatinine 0.69 Glucose 154 H Calcium 8.1 L 04/05/17 05:30 WBC Hgb Hct Plt Count APTT 23.5 L Sodium Potassium Chloride Carbon Dioxide BUN Creatinine Glucose Calcium Consult Discharge Plan - Plan Referrals: Chema Adan MD [Partnered Physician] - 05/07/17 1:00 pm Mazin Wan MD [Primary Care Provider] - (patient is going to rehab, no PCP appointment needed)
[2017-04-05 08:30] LABS: Basophils # 0.1 K/mcL (0.0-0.2); Basophils % 0.3 %; Eosinophils % 0.2 %; Hematocrit 26.7 % (35.3-44.9); Hemoglobin 9.9 g/dL (11.5-15.4); Immature Granulocytes % 3.7 % (0-4); Lymphocytes # 1.7 K/mcL (0.6-4.6); Lymphocytes % 8.3 %; Mean Corpuscular Hemoglobin 33.1 pg (28.0-33.3); Mean Corpuscular Volume 89.3 fL (83.0-100.0); Mean Platelet Volume 11.5 fL (9.4-12.4); Monocytes # 1.4 K/mcL (0.0-1.3); Monocytes % 7.2 %; Nucleated Red Blood Cells 19.4 /100 WBC (0); Platelet Count 293 K/mcL (140-400); Red Blood Count 2.99 M/mcL (3.82-4.97); Red Cell Distribution Width 21.2 % (11.5-14.5); Segmented Neutrophils % 80.3 %
[2017-04-05 08:47] LABS: Mean Corpuscular HGB Conc 37.1 g/dL (31.6-35.5)
[2017-04-05] MEDS ORDERED: *HR* OxyCODONE Immed Rel 5 MG TABLET PO PRN ×2 (09:54)
[2017-04-05] MEDS: *HR* HYDROmorphone 2 MG/ML SYRINGE IVP PRN ×4 (10:34→21:49)
--- NOTE | 2017-04-05 11:49 | Electrocardiograph Report ---
[address] [address] Test Date: 2017-04-04 Pat Name: Litzy Genao Department: 105 Room: 2N03 Gender: F Hand Sole Sewer: DANYEL : 1965 Requested By: Tyler Plascencia Order Number: [id number] Reading MD: Jackson De Guzman MD Measurements Intervals [place] Rate: 73 P: 71 NE: 147 QRS: 38 QRSD: 86 T: 55 QT: 404 QTc: 430 Interpretive Statements SINUS RHYTHM WITH OCCASIONAL SUPRAVENTRICULAR PREMATURE COMPLEXES Electronically Signed On 04-05-2017 11:48:05 EDT by Jackson De Guzman MD
[2017-04-05 12:07] LABS: Eosinophils % 0.1 %
[2017-04-05] MEDS ORDERED: Magic Mouthwash 10 ML UD Cup PO PRN (12:10)
[2017-04-05] MEDS ORDERED: (Diclofenac Sodium [Voltaren] 1 APPL) TP PRN (12:10)
[2017-04-05] MEDS ORDERED: *HR* LORazepam 1 MG TABLET PO PRN (12:10)
[2017-04-05 12:20] LABS: Basophils # 0.1 K/mcL (0.0-0.2); Basophils % 0.2 %; Hematocrit 27.9 % (35.3-44.9); Immature Granulocytes % 4.6 % (0-4); Lymphocytes # 2.5 K/mcL (0.6-4.6); Lymphocytes % 10.1 %; Mean Corpuscular HGB Conc 35.8 g/dL (31.6-35.5); Mean Corpuscular Hemoglobin 32.3 pg (28.0-33.3); Mean Platelet Volume 10.1 fL (9.4-12.4); Monocytes # 1.6 K/mcL (0.0-1.3); Monocytes % 6.6 %; Nucleated Red Blood Cells 15.8 /100 WBC (0); Platelet Count 341 K/mcL (140-400); Red Cell Distribution Width 21.2 % (11.5-14.5); Segmented Neutrophils % 78.4 %
[2017-04-05 12:22] LABS: Neutrophils # 19.1 K/mcL (1.6-8.9)
[2017-04-05 12:59] LABS: Platelet Estimate Normal (Normal); Polychromasia 3+ (Not Present)
[2017-04-05 13:11] LABS: Anisocytosis 2+ (Not Present)
[2017-04-05] MEDS ORDERED: LACTOSE REDUCED FOOD PO SCH (15:00)
--- NOTE | 2017-04-05 15:10 | Palliative - Consult Note ---
Date of Encounter: 04/05/17 Time of Encounter: 11:00 - Assessment and Plan (1) Pain management Current Visit: Yes Status: Acute Assessment and plan: Patient upset that her pain medication is only every 6 hours, states the Oxycodone is not helping enough and not lasting long enough. She states she does not like Morphine, despite education on the medication, she continues to state "I don't like it, it scares me". Will increase frequency of Oxycodone already ordered and provide IV Hydromorphone for breakthrough if Oxycodone not effective. Continue to monitor. She does state that she was not taking MS Contin at home as she "does not want to be on Morphine". (2) Constipation Current Visit: Yes Status: Acute Assessment and plan: Continue scheduled Senna and Colace and monitor. + BM yesterday Qualifiers: Constipation type: slow transit constipation Qualified Code(s): K59.01 - Slow transit constipation (3) Counseling regarding advanced care planning and goals of care Current Visit: Yes Status: Acute Assessment and plan: Patient facing decision of surgery with amputation vs, no surgery and focusing on comfort measures with ischemic leg and metastatic cancer. She has complex social situation with 3 children, (ages 21/18/12) living in the home, and brother who reportedly has history of alcohol abuse and not of help to the patient. Her sister Meseret works her at [employer], and is at bedside discussing situation with pt. Patient understands that she is high risk for surgery, and for post-operative complications, and discussed that not having surgery could lead to gangrene and life threatening infection. Discussed hospice care as well , and how that would fit into the picture. She states "I want to continue to fight as long as I can, and want to continue chemotherapy". Discussed that if she decides to proceed with surgery, decision should be made soon to avoid continue tissue/muscle . She is leaning at this point to proceed with amputation. Discussed that she would require rehabilitation stay, and she verbalized understanding. We did complete Healthcare power of senior attorney and she elected her sister Meseret Dumont as primary POA. Copies of this were provided to Meseret and copy placed on Medical record. Will continue to follow clinical course and assist as needed. Thank you for the consult. Palliative-CN HPI - Data of Consult Consult date: 04/05/17 Requesting Physician: Chema Adan MD Primary Care Provider: Mazin Wan MD - Consult Narrative History of present illness: Ms. Genao is a 52 year old female with a history of metastatic lung cancer, who was admitted with 2 day history left leg pain. She had came to ED once, but did not desire to wait and returned home. Upon testing, She was found to have extensive DVT and was taken to OR last pm by Dr. Adan. Thrombectomy was unsuccessful, and she continues to have cyanotic and pulseless left leg. She also was anemia with a hemoglobin of 4.2 and she was transfused prior to surgery. Upon my visit, she is complaining of left left pain, and states her pain medication is not helping enough and not lasting long enough. She is adamant she does not want any Morphine, despite education, and by chart review, this has been an ongoing oncology discussion as well. She describes complex social situation with brother and 3 children with limited support. She has had one chemotherapy treatment thus far, and completed chest radiation per Dr. Anderson. Palliative care was consulted to assist with goals of care discussions as pt unsure at this point if she desires amputation and wants to know other options. CC: Chema Adan MD Past Med Surg Social Fam HX - Past Medical History Medical history: cancer, diabetes, hypertension, other Psychiatric history: anxiety, depression - Past Surgical History Surgical History: , cholecystectomy, hysterectomy, splenectomy, LE bypass - Social History Smoking Status: Current every day smoker Smokeless Tobacco Status: No Alcohol use: none Drug use: none - Family History Father Living Status: Cause of : lung cancer Mother Living Status: Still Living Hx Family Cardiac Disorders: Yes (triple bypass, stents) Hx Family Endocrine Disorder: Yes (DM) Medications and Allergies Metoprolol [Lopressor] 25 mg PO BID 01/27/16 [History] Diclofenac Sodium [Voltaren] 1 appl TP QID PRN 01/09/17 [History] Docusate [Colace] 100 mg PO BID #60 capsule 01/26/17 [Rx] Pregabalin [Lyrica] 75 mg PO BID #60 capsule 01/26/17 [Rx] Sennosides [Senna] 8.6 mg PO BID #60 tablet 01/26/17 [Rx] Prochlorperazine Maleate [Compazine] 10 mg PO Q6HR PRN #90 tablet 01/31/17 [Rx] GuaiFENesin/Codeine [ROBITUSSIN w/CODEINE] 5 ml PO Q8HR PRN #120 ml 02/15/17 [Rx ] Citalopram Hydrobromide [Celexa] 40 mg PO DAILY #30 tab 02/20/17 [Rx] Megestrol Acetate [Megace] 10 ml PO DAILY #300 mls 02/20/17 [Rx] Temazepam [Restoril] 7.5 mg PO HS #30 capsule 02/20/17 [Rx] LORazepam [Ativan] 0.5 - 1 mg PO BID PRN #30 tablet 03/05/17 [Rx] Magic Mouthwash [Magic Mouthwash BLM] 10 ml PO QID PRN #240 ml 03/13/17 [Rx] Lactose-Reduced Food [Ensure Enlive] 237 ml PO TID #90 liquid 03/14/17 [Rx] Dexamethasone 4 mg PO DAILY 03/29/17 [History] Oxycodone HCl 10 mg PO Q2H PRN #150 tab 03/29/17 [Rx] metFORMIN [Glucophage] 500 mg PO BIDWM 03/29/17 [History] Morphine Sulfate [Arymo ER] 60 mg PO BID 04/05/17 [History] Allergies gabapentin Allergy (Verified 04/04/17 14:53) Dizziness iodine Allergy (Verified 04/04/17 14:53) Hives metronidazole [From Flagyl] Allergy (Verified 04/04/17 14:53) Hives Penicillins Allergy (Verified 04/04/17 14:53) Anaphylaxis All systems: reviewed and no additional remarkable complaints except as stated ( Left leg/groin pain, decreased appetite, generalized weakness, anxiety) Palliative Care-Exam - Constitutional Vitals: Temp Pulse Resp BP Pulse Ox 99.7 F H 78 15 120/70 99 04/05/17 13:22 04/05/17 13:22 04/05/17 13:22 04/05/17 13:22 04/05/17 13:22 General appearance: Present: no acute distress - Head Head Exam: Present: normal inspection, normocephalic - Eye Eye exam: Present: normal appearance, PERRL - Respiratory Respiratory exam: Present: decreased breath sounds, CTAB - Cardiovascular Cardiovascular exam: Present: +S1, +S2 - GI/Abdominal Exam GI/Abdominal exam: Present: normal bowel sounds, soft - Extremities Exam Additional comments: Left left cyanotic and pulseless. Dressing from surgical incision dry/intact - Neurological Exam Neurological exam: Present: alert, oriented X3 Additional comments: Unable to move left leg. Moves all other extremities well. - Psychiatric Psychiatric exam: Present: anxious, flat affect - Skin Skin exam: Present: dry, warm Additional comments: Left lower extremity cyanotic Internal Medicine - CN: Reslt - Labs CBC & Chem 7: 04/05/17 11:53 04/05/17 05:30 Labs: Short CBC 04/04/17 04/05/17 04/05/17 Range/Units 21:31 00:50 06:48 WBC 22.5 H 19.9 H (4.3-11.1) K/mcL Hgb 7.1 L D 7.4 L 9.9 L D (11.5-15.4) g/dL Hct 19.7 L 22.0 L 26.7 L (35.3-44.9) % Plt Count 352 293 (140-400) K/mcL Neutrophils # 17.1 H 16.0 H (1.6-8.9) K/mcL 04/05/17 Range/Units 11:53 WBC 24.3 H (4.3-11.1) K/mcL Hgb 10.0 L (11.5-15.4) g/dL Hct 27.9 L (35.3-44.9) % Plt Count 341 (140-400) K/mcL Neutrophils # 19.1 H (1.6-8.9) K/mcL BMP 04/05/17 05:30 Sodium 130 L Potassium 3.9 Chloride 106 Carbon Dioxide 16 L BUN 9 Creatinine 0.69 Glucose 154 H Calcium 8.1 L - ABG Interpretation ABG results: PT/INR, D-dimer PT 17.0 Seconds (9.4-12.1) H 04/04/17 16:46 Consult Discharge Plan - Plan Referrals: Chema Adan MD [Partnered Physician] - 05/07/17 1:00 pm Mazin Wan MD [Primary Care Provider] - Kinza Anderson MD [Partnered Physician] - 04/11/17 3:15 pm Palliative Quality Palliative Quality: Screen for Code Status: Yes, Screen for Goals of Care: Yes, Screen for Pain: Yes, If Pain Regimen Started, Initiate Bowel Regimen: Yes, Screen for Nausea/Vomitting: Yes
[2017-04-05] MEDS: *HR* OxyCODONE Immed Rel 5 MG TABLET PO PRN ×2 (15:23→19:40)
[2017-04-05] MEDS: Sennosides 8.6 MG TABLET PO SCH (20:25)
[2017-04-05 23:28] LABS: Basophils # 0.1 K/mcL (0.0-0.2); Basophils % 0.4 %; Eosinophils % 0.1 %; Hematocrit 31.9 % (35.3-44.9); Hemoglobin 11.2 g/dL (11.5-15.4); Immature Granulocytes % 2.5 % (0-4); Lymphocytes # 0.9 K/mcL (0.6-4.6); Lymphocytes % 5.3 %; Mean Corpuscular HGB Conc 35.1 g/dL (31.6-35.5); Mean Corpuscular Hemoglobin 32.8 pg (28.0-33.3); Mean Corpuscular Volume 93.5 fL (83.0-100.0); Mean Platelet Volume 11.1 fL (9.4-12.4); Monocytes # 0.7 K/mcL (0.0-1.3); Nucleated Red Blood Cells 21.3 /100 WBC (0); Platelet Count 308 K/mcL (140-400); Red Blood Count 3.41 M/mcL (3.82-4.97); Red Cell Distribution Width 21.9 % (11.5-14.5); Segmented Neutrophils % 87.7 %
[2017-04-05 23:31] LABS: Polychromasia 3+ (Not Present)
[2017-04-05 23:32] LABS: Basophilic Stippling 2+ (Not Present); Howell-Jolly Bodies 1+ (Not Present)
[2017-04-06] MEDS: *HR* Metoprolol 5 MG/5 ML VIAL IVP SCH ×4 (00:20→23:00)
[2017-04-06] MEDS: *HR* OxyCODONE Immed Rel 5 MG TABLET PO PRN ×4 (00:35→21:18)
[2017-04-06] MEDS: Heparin 25,000 UNIT/500 ML D5W 25,000 UNIT/500 ML MLS IVC SCH (00:37)
[2017-04-06 04:32] LABS: Basophils # 0.1 K/mcL (0.0-0.2); Basophils % 0.3 %; Eosinophils % 0.1 %; Hematocrit 28.7 % (35.3-44.9); Immature Granulocytes % 1.6 % (0-4); Lymphocytes % 5.2 %; Mean Corpuscular HGB Conc 34.8 g/dL (31.6-35.5); Mean Corpuscular Hemoglobin 32.4 pg (28.0-33.3); Mean Corpuscular Volume 92.9 fL (83.0-100.0); Monocytes # 1.6 K/mcL (0.0-1.3); Monocytes % 8.4 %; Neutrophils # 16.2 K/mcL (1.6-8.9); Nucleated Red Blood Cells 11.8 /100 WBC (0); Platelet Count 313 K/mcL (140-400); Red Blood Count 3.09 M/mcL (3.82-4.97); Red Cell Distribution Width 21.2 % (11.5-14.5); Segmented Neutrophils % 84.4 %
[2017-04-06 04:48] LABS: Anisocytosis 3+ (Not Present)
[2017-04-06 04:49] LABS: Macrocytosis Present (Not Present); Platelet Estimate Normal (Normal); Polychromasia 2+ (Not Present)
[2017-04-06] MEDS: *HR* HYDROmorphone 2 MG/ML SYRINGE IVP PRN ×3 (05:09→14:04)
[2017-04-06] MEDS: *HR* Heparin 5,000 UNIT/ML VIAL IVP PRN (05:40)
[2017-04-06] MEDS: Insulin LISPRO 300 UNITS/3 ML VIAL SQ SCH ×4 (07:55→21:20)
[2017-04-06] MEDS: Sennosides 8.6 MG TABLET PO SCH ×2 (08:24→21:18)
[2017-04-06] MEDS ORDERED: Megestrol Acetate 400 MG/10 ML UDC PO SCH (09:00)
--- NOTE | 2017-04-06 09:40 | Event Note ---
Date of Encounter: 04/06/17 Time of Encounter: 09:30 Patient awake and alert on her phone. Daughter asleep at bedside. States the Dilaudid did keep her more comfortable last night and more effective than Oxycodone at this time. Does plan on surgery today - states later this afternoon. Provided emotional support. Palliative will f/u on clinical course Sunday. I did speak briefly with Chichi Blanton, Oncology PROPAGATOR LABORER and updated on pt situation yesterday.
[2017-04-06 09:44] LABS: Basophils % 0.2 %; Eosinophils # 0.1 K/mcL (0.0-0.6); Eosinophils % 0.4 %; Hematocrit 29.1 % (35.3-44.9); Hemoglobin 10.2 g/dL (11.5-15.4); Immature Granulocytes % 1.3 % (0-4); Immature Platelets 7.9 % (1.1-6.1); Lymphocytes # 1.6 K/mcL (0.6-4.6); Lymphocytes % 8.6 %; Mean Corpuscular HGB Conc 35.1 g/dL (31.6-35.5); Mean Corpuscular Hemoglobin 32.4 pg (28.0-33.3); Mean Corpuscular Volume 92.4 fL (83.0-100.0); Mean Platelet Volume 10.4 fL (9.4-12.4); Monocytes # 1.5 K/mcL (0.0-1.3); Monocytes % 7.9 %; Nucleated Red Blood Cells 10.5 /100 WBC (0); Platelet Count 336 K/mcL (140-400); Red Blood Count 3.15 M/mcL (3.82-4.97); Red Cell Distribution Width 22.2 % (11.5-14.5); Segmented Neutrophils % 81.6 %
[2017-04-06 10:46] LABS: Anisocytosis 2+ (Not Present); Polychromasia 1+ (Not Present)
[2017-04-06 10:48] LABS: Macrocytosis Present (Not Present)
[2017-04-06 10:49] LABS: Platelet Estimate Normal (Normal)
[2017-04-06 11:02] LABS: Pappenheimer Bodies 3+ (Not Present)
--- NOTE | 2017-04-06 13:02 | Anesthesia Evaluation PreOp ---
Date of Encounter: 04/06/17 Time of Encounter: 13:00 - Past History Planned Operation: l akrosina Cardiac History: HTN, Other (echo 02/13: ef 50, nl rv. pad, dvt lle. 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 SUPERVISOR History: Other (anxiety, depression) Other Medical History: Diabetes Type II, Other (cancer) Anesthesia History: No Prior Anesthetic Complications, Past Anesthesia (c/s, cholecyst, hysterect, splenectomy, LE bypass) Alcohol Use: none Drug use: none Medications and Allergies Metoprolol [Lopressor] 25 mg PO BID 01/27/16 [History] Diclofenac Sodium [Voltaren] 1 appl TP QID PRN 01/09/17 [History] Docusate [Colace] 100 mg PO BID #60 capsule 01/26/17 [Rx] Pregabalin [Lyrica] 75 mg PO BID #60 capsule 01/26/17 [Rx] Sennosides [Senna] 8.6 mg PO BID #60 tablet 01/26/17 [Rx] Prochlorperazine Maleate [Compazine] 10 mg PO Q6HR PRN #90 tablet 01/31/17 [Rx] GuaiFENesin/Codeine [ROBITUSSIN w/CODEINE] 5 ml PO Q8HR PRN #120 ml 02/15/17 [Rx ] Citalopram Hydrobromide [Celexa] 40 mg PO DAILY #30 tab 02/20/17 [Rx] Megestrol Acetate [Megace] 10 ml PO DAILY #300 mls 02/20/17 [Rx] Temazepam [Restoril] 7.5 mg PO HS #30 capsule 02/20/17 [Rx] LORazepam [Ativan] 0.5 - 1 mg PO BID PRN #30 tablet 03/05/17 [Rx] Magic Mouthwash [Magic Mouthwash BLM] 10 ml PO QID PRN #240 ml 03/13/17 [Rx] Lactose-Reduced Food [Ensure Enlive] 237 ml PO TID #90 liquid 03/14/17 [Rx] Dexamethasone 4 mg PO DAILY 03/29/17 [History] Oxycodone HCl 10 mg PO Q2H PRN #150 tab 03/29/17 [Rx] metFORMIN [Glucophage] 500 mg PO BIDWM 03/29/17 [History] Morphine Sulfate [Arymo ER] 60 mg PO BID 04/05/17 [History] Allergies gabapentin Allergy (Verified 04/04/17 14:53) Dizziness iodine Allergy (Verified 04/04/17 14:53) Hives metronidazole [From Flagyl] Allergy (Verified 04/04/17 14:53) Hives Penicillins Allergy (Verified 04/04/17 14:53) Anaphylaxis - Meds/Allergy Pre-op Review Medications Reviewed: Yes Allergies Reviewed: Yes Beta Blockers on Current Med List: Yes If Beta Blockers taken, Date/Time (Last Dose taken): metoprolol 12:43 Anesthesia Results - Labs 04/06/17 08:11 04/05/17 05:30 - Imaging EKG: report reviewed (sr, markus) Anesthesia Exam O2 Sat Weight 41.9 kg O2 Sat by Pulse Oximetry 100 O2 Sat by Pulse Oximetry 98 O2 Sat by Pulse Oximetry 100 O2 Sat by Pulse Oximetry 95 O2 Sat by Pulse Oximetry 100 O2 Sat by Pulse Oximetry 100 O2 Sat by Pulse Oximetry 99 Vital Signs Temp Pulse Resp BP Pulse Ox 97.4 F L 73 18 159/55 100 04/04/17 14:49 04/04/17 14:49 04/04/17 14:49 04/04/17 14:49 04/04/17 14:49 Vital Signs/O2 Sat/Glucose, Most Current Temp Pulse Resp BP Pulse Ox 04/06/17 12:52 57 04/06/17 12:30 98.1 F 60 14 135/78 100 Blood glucose: 273 (11:48) Height: 1.65 Weight: 42 NPO (# of Hours): >8 - HEENT Pupil (Motor): Pupils equal, EOMI Mallampati: II Teeth: Edentulous Oral Opening: Greater than 3 - PIPELINES SUPERVISOR LOC: Oriented PIPELINES SUPERVISOR Motor: Normal RUE, Normal LUE, Normal RLE, Normal LLE, Normal Face PIPELINES SUPERVISOR Sensory: Normal: RUE, LUE, RLE, LLE, Face - Cardiac Rhythm: Regular Murmur: None - Pulmonary Breath Sounds: bilateral Clear Respiratory Effort: Symmetrical Anesthesia Assess/Plan ASA Score: 5, E Modified Christin Scale for Level of Consciousness: Cooperative, oriented, and tranquil Anesthetic Plan: General Monitoring Plan: Standard Monitors Recovery Plan: PACU
[2017-04-06] MEDS ORDERED: Lidocaine -MPF 2% 2 ML VIAL ONE (16:09)
[2017-04-06] MEDS ORDERED: Ondansetron 4 MG/2 ML VIAL ONE (16:09)
[2017-04-06] MEDS ORDERED: Lidocaine -MPF 4% 5 ML AMPUL ONE (16:09)
[2017-04-06] MEDS ORDERED: *HR* Succinylcholine 200 MG/10 ML VIAL IVP ONE (16:09)
[2017-04-06] MEDS ORDERED: Dexamethasone 4 MG/ML VIAL ONE (16:09)
[2017-04-06] MEDS ORDERED: *HR* FentaNYL (PF) 100 MCG/2 ML VIAL ONE (16:09)
[2017-04-06] MEDS ORDERED: *HR* Propofol 200 MG/20 ML VIAL IVP ONE (16:09)
[2017-04-06] MEDS ORDERED: *HR* Midazolam HCl 2 MG/2 ML VIAL ONE (16:09)
[2017-04-06] MEDS ORDERED: Clindamycin 600 MG/50 ML 600 MG/50 ML IV.SOLN IVPB ONE ×2 (16:15→22:08)
[2017-04-06] MEDS ORDERED: EPHEDrine 50 MG/ML VIAL ONE (16:20)
[2017-04-06] MEDS ORDERED: Ondansetron 4 MG/2 ML VIAL IVP ONE ×2 (16:47→19:41)
[2017-04-06] MEDS ORDERED: *HR* Promethazine 25 MG/ML VIAL IVP PRN ×2 (16:47→19:41)
--- NOTE | 2017-04-06 17:51 | Operative Note ---
Date of procedure: 04/06/17 Pre-op diagnosis: Acute left lower extremity ischemia Post-op diagnosis: same Procedure: Left above knee amputation Complications: None Anesthesia: KAMIA Surgeon: Chema Adan Estimated blood loss (cc): 100 Specimen: Left lower extremity Condition: stable Disposition: PACU Procedure in Detail: Indications: The patient is a 52 year old female who presented with prolonged acute left lower extremity ischemia. She underwent left lower extremity thrombectomy. Despite this, her left leg continued to decline and demarcated at the level of the knee. A left above knee amputation was recommended. Procedure: The patient was identified in the holding area. The risks, benefits and alternatives were discussed and all questions were answered. The patient was taken to the operating room and placed in the supine position on the operating room table. After the induction of general endotracheal anesthesia, the patient was cleaned and draped in the normal sterile fashion. The skin was marked along the let thigh in the standard fashion. The skin was incised with a #10 blade. Using a process of blunt, sharp and electrocautery dissection, the muscle fascia was traversed. The superficial femoral artery and vein were clamped and divided. The periosteum was elevated off of the femur. Using a powered saw, the femur was then transected though the midshaft. The artery and vein were then suture ligated with 0-silk suture. The nerve was grasped and transected as high as possible. The wound was irrigated. Meticulous hemostasis was obtained through out the wound with electrocautery. The fascial layers were reapproximated with Vicryl surture. Skin was reapproximated with sulma. A sterile dressing was applied. The patient was extubated and taken to the recovery room in stable condition.
[2017-04-06] MEDS: *HR* HYDROmorphone (PF) 1 MG/ML SYRINGE IVP PRN ×6 (18:10→19:30)
[2017-04-06] MEDS ORDERED: Ketorolac 30 MG/ML VIAL IVP ONE (18:36)
[2017-04-06] MEDS ORDERED: *HR* Metoprolol 5 MG/5 ML VIAL IVP ONE (18:36)
[2017-04-06] MEDS ORDERED: Acetaminophen IV 1,000 MG/100 ML INFUS..BTL IVPB ONE (18:36)
[2017-04-06] MEDS ORDERED: Ringers Solution, Lactated 1,000 ML ONE (18:40)
[2017-04-06] MEDS ORDERED: *HR* Labetalol 20 MG/4 ML SYRINGE IVP ONE (19:07)
[2017-04-06] MEDS: *HR* Labetalol 20 MG/4 ML SYRINGE IVP PRN ×2 (19:10→19:15)
[2017-04-06] MEDS ORDERED: *HR* LORazepam 1 MG TABLET PO PRN (19:41)
[2017-04-06] MEDS ORDERED: *HR* OxyCODONE Immed Rel 5 MG TABLET PO PRN (19:41)
[2017-04-06] MEDS ORDERED: Naloxone 0.4 MG/ML INJ IVP PRN (19:41)
[2017-04-06] MEDS ORDERED: Dextrose Gel 15 GM PO PRN ×2 (19:41)
[2017-04-06] MEDS ORDERED: *HR* Dextrose 50 % in Water (Syg) 50 ML SYRINGE IVP PRN (19:41)
[2017-04-06] MEDS ORDERED: *HR* Labetalol 20 MG/4 ML SYRINGE IVP PRN (19:41)
[2017-04-06] MEDS ORDERED: D5% in Water 1,000 ML IVC PRN (19:41)
[2017-04-06] MEDS ORDERED: DICLOFENAC SODIUM TP PRN (19:41)
[2017-04-06] MEDS ORDERED: Magic Mouthwash 10 ML UD Cup PO PRN (19:41)
[2017-04-06] MEDS ORDERED: Pregabalin 75 MG CAPSULE PO SCH (21:00)
[2017-04-06] MEDS: *HR* Rivaroxaban 15 MG TABLET PO SCH (21:19)
[2017-04-06] MEDS: Pregabalin 75 MG CAPSULE PO SCH (21:19)
--- NOTE | 2017-04-06 22:44 | Anesthesia Evaluation Post Op ---
Date of Encounter: 04/06/17 Time of Encounter: 22:44 - Vital Signs Vital Signs: Vital Signs/O2 Sat/Glucose, Most Recent Temp Pulse Resp BP Pulse Ox 98.7 F 87 16 143/68 96 04/06/17 19:51 04/06/17 19:51 04/06/17 19:51 04/06/17 19:51 04/06/17 19:51 Blood Glucose* 215 - Lungs Lungs: Clear Ascult./Percussion - Airway Airway: Non-obstructed - Cardiovascular Regular Rate - Mental Status Mental Status: Asleep with brisk response to light stimulation - Pain Pain Scale: 4 Pain Scale used: Numeric (1 - 10) - Nausea Vomiting Nausea Vomiting: Not Present - Hydration Hydration: NPO, Has not voided
[2017-04-07 04:21] LABS: BUN/Creatinine Ratio 11 (6-26); Blood Urea Nitrogen 7 mg/dL (7-20); Calcium 8.5 mg/dL (8.6-10.8); Carbon Dioxide 23 mEq/L (19-29); Chloride 106 mEq/L (98-109); Glucose 129 mg/dL (70-99); Osmolality,Calculated 280 (280-300); Potassium 3.5 mEq/L (3.5-4.5); Sodium 135 mEq/L (136-145); eGFR For African Americans > 60 (> 60); eGFR For Non-African Americans > 60 (> 60)
[2017-04-07 05:19] LABS: Basophils % 0.2 %; Eosinophils % 0.1 %; Hematocrit 24.5 % (35.3-44.9); Hemoglobin 8.5 g/dL (11.5-15.4); Immature Granulocytes % 1.2 % (0-4); Immature Platelets 5.5 % (1.1-6.1); Lymphocytes # 1.6 K/mcL (0.6-4.6); Lymphocytes % 8.7 %; Mean Corpuscular Hemoglobin 32.9 pg (28.0-33.3); Mean Platelet Volume 10.5 fL (9.4-12.4); Monocytes # 1.3 K/mcL (0.0-1.3); Monocytes % 7.2 %; Neutrophils # 15.2 K/mcL (1.6-8.9); Nucleated Red Blood Cells 2.4 /100 WBC (0); Platelet Count 308 K/mcL (140-400); Red Blood Count 2.58 M/mcL (3.82-4.97); Red Cell Distribution Width 22.1 % (11.5-14.5); Segmented Neutrophils % 82.6 %
[2017-04-07 05:22] LABS: Mean Corpuscular HGB Conc 34.7 g/dL (31.6-35.5)
[2017-04-07] MEDS: *HR* Metoprolol 5 MG/5 ML VIAL IVP SCH ×3 (06:05→19:04)
[2017-04-07] MEDS: *HR* HYDROmorphone 2 MG/ML SYRINGE IVP PRN ×5 (08:33→20:02)
[2017-04-07] MEDS: *HR* OxyCODONE Immed Rel 5 MG TABLET PO PRN ×5 (08:38→22:22)
[2017-04-07] MEDS: Sennosides 8.6 MG TABLET PO SCH ×2 (08:38→20:02)
[2017-04-07] MEDS: Insulin LISPRO 300 UNITS/3 ML VIAL SQ SCH ×4 (08:38→21:46)
[2017-04-07] MEDS: *HR* Rivaroxaban 15 MG TABLET PO SCH ×2 (08:39→20:02)
[2017-04-07] MEDS: Pregabalin 75 MG CAPSULE PO SCH ×2 (08:39→20:03)
[2017-04-07] MEDS: Megestrol Acetate 400 MG/10 ML UDC PO SCH (08:40)
--- NOTE | 2017-04-07 14:42 | Vascular/[facility] Progress Note ---
Date of Encounter: 04/07/17 Time of Encounter: 12:00 - Assessment and plan (1) Ischemia of left lower extremity Current Visit: Yes Status: Acute The patient is postoeprative day #1 after left above knee amputation. She will continue with PT/OT. Leave bandage in place today. Possible discharge on Sunday. (2) Essential hypertension Current Visit: Yes Status: Acute (3) Lung cancer Current Visit: Yes Status: Chronic Qualifiers: Laterality: unspecified laterality Lung location: unspecified part of lung Qualified Code(s): C34.90 - Malignant neoplasm of unspecified part of unspecified bronchus or lung (4) Diabetes type 2, uncontrolled Current Visit: Yes Status: Acute Qualifiers: Diabetes mellitus complication status: with circulatory complication Diabetes mellitus complication detail: with peripheral angiopathy without gangrene Diabetes mellitus skilled nursing insulin use: unspecified skilled nursing insulin use status Qualified Code(s): E11.51 - Type 2 diabetes mellitus with diabetic peripheral angiopathy without gangrene; E11.65 - Type 2 diabetes mellitus with hyperglycemia (5) Diabetes Current Visit: No Status: Acute Qualifiers: Diabetes mellitus type: due to underlying condition Diabetes mellitus complication status: without complication Diabetes mellitus behavioral geneticist insulin use: without skilled nursing use Qualified Code(s): E08.9 - Diabetes mellitus due to underlying condition without complications (6) Tobacco abuse Current Visit: Yes Status: Acute She was counseled regarding smoking cessation. (7) Deep vein thrombosis (DVT) Current Visit: Yes Status: Acute The patient has been started on Xarelto. Qualifiers: DVT location: lower extremity Affected thrombotic vein of extremity: femoral Chronicity: acute Laterality: left Qualified Code(s): I82.412 - Acute embolism and thrombosis of left femoral vein (8) Chronic anemia Current Visit: Yes Status: Chronic The patient has chronic anemia. She is hemodynamically stable. Her hgb is 8.5. She has no evidence of ongoing blood loss. - Subjective Interval history: The patient reports adequate pain control. She is alert. She denies chest pain or shortness of breath. Vital Signs, Last 4 Hours Temp Pulse Resp BP Pulse Ox 04/07/17 13:07 92 96 04/07/17 11:30 98.2 F 92 12 132/76 92 - Physical Examination General: Present: Conversant, No Apparent Distress Cardiac: Present: Reg Rate and Rhythm Lungs: Present: Normal Breath Sounds Neuro: Present: Alert and responsive Vascular: Present: Surgical incisions (bandage dry) Abdomen: Present: Soft - VTE Documentation of Mechanical Device: Intermittent pneumatic compression device Results 04/07/17 03:45 04/07/17 03:45 Lab Results, Last 24 hours 04/07/17 04/07/17 03:45 03:45 WBC 18.4 H Hgb 8.5 L D Hct 24.5 L Plt Count 308 Sodium 135 L Potassium 3.5 Chloride 106 Carbon Dioxide 23 BUN 7 Creatinine 0.65 Glucose 129 H Calcium 8.5 L Consult Discharge Plan - Plan Referrals: Chema Adan MD [Partnered Physician] - 05/07/17 1:00 pm Mazin Wan MD [Primary Care Provider] - (patient is going to rehab, no PCP appointment needed)
[2017-04-08] MEDS: *HR* Metoprolol 5 MG/5 ML VIAL IVP SCH ×5 (00:31→23:21)
[2017-04-08] MEDS: *HR* HYDROmorphone 2 MG/ML SYRINGE IVP PRN ×7 (04:03→23:21)
[2017-04-08] MEDS: *HR* Rivaroxaban 15 MG TABLET PO SCH ×2 (08:33→22:10)
[2017-04-08] MEDS: Pregabalin 75 MG CAPSULE PO SCH ×2 (08:34→19:55)
[2017-04-08] MEDS: *HR* OxyCODONE Immed Rel 5 MG TABLET PO PRN ×4 (08:34→22:10)
[2017-04-08] MEDS: Megestrol Acetate 400 MG/10 ML UDC PO SCH (08:35)
[2017-04-08] MEDS: Sennosides 8.6 MG TABLET PO SCH ×2 (08:35→19:55)
[2017-04-08] MEDS: Insulin LISPRO 300 UNITS/3 ML VIAL SQ SCH ×4 (08:45→20:01)
--- NOTE | 2017-04-08 15:00 | Vascular/[facility] Progress Note ---
Date of Encounter: 04/08/17 Time of Encounter: 14:00 - Assessment and plan (1) Ischemia of left lower extremity Current Visit: Yes Status: Acute The patient is postoeprative day #2 after left above knee amputation. Will increae pain medication. Continue with PT/OT. Leave bandage in place today. Likely discharge on Sunday if bed available. (2) Essential hypertension Current Visit: Yes Status: Acute (3) Lung cancer Current Visit: Yes Status: Chronic Qualifiers: Laterality: unspecified laterality Lung location: unspecified part of lung Qualified Code(s): C34.90 - Malignant neoplasm of unspecified part of unspecified bronchus or lung (4) Diabetes type 2, uncontrolled Current Visit: Yes Status: Acute Qualifiers: Diabetes mellitus complication status: with circulatory complication Diabetes mellitus complication detail: with peripheral angiopathy without gangrene Diabetes mellitus watermelon harvesting supervisor insulin use: unspecified mcfp insulin use status Qualified Code(s): E11.51 - Type 2 diabetes mellitus with diabetic peripheral angiopathy without gangrene; E11.65 - Type 2 diabetes mellitus with hyperglycemia (5) Diabetes Current Visit: No Status: Acute Qualifiers: Diabetes mellitus type: due to underlying condition Diabetes mellitus complication status: without complication Diabetes mellitus mcfp insulin use: without watermelon harvesting supervisor use Qualified Code(s): E08.9 - Diabetes mellitus due to underlying condition without complications (6) Tobacco abuse Current Visit: Yes Status: Acute She was counseled regarding smoking cessation. (7) Deep vein thrombosis (DVT) Current Visit: Yes Status: Acute Continue Xarelto. Qualifiers: DVT location: lower extremity Affected thrombotic vein of extremity: femoral Chronicity: acute Laterality: left Qualified Code(s): I82.412 - Acute embolism and thrombosis of left femoral vein (8) Chronic anemia Current Visit: Yes Status: Chronic The patient has chronic anemia. She remains hemodynamically stable without evidence of ongoing blood loss. - Subjective Interval history: The patient reports partial pain control with oxycodone. She is otherwise without complaints. She denies chest pain or shortness of breath. Vital Signs, Last 4 Hours Temp Pulse Resp BP Pulse Ox 04/08/17 11:37 98.4 F 81 18 118/71 100 - Physical Examination General: Present: Conversant, No Apparent Distress Cardiac: Present: Reg Rate and Rhythm Lungs: Present: Normal Breath Sounds Neuro: Present: Alert and responsive, No focal deficits noted Vascular: Present: Pulse, normal (right lower extremity), Surgical incisions ( bandage dry) - VTE Documentation of Mechanical Device: Intermittent pneumatic compression device Results 04/07/17 03:45 04/07/17 03:45 Consult Discharge Plan - Plan Referrals: Chema Adan MD [Partnered Physician] - 05/07/17 1:00 pm Mazin Wan MD [Primary Care Provider] - (patient is going to rehab, no PCP appointment needed)
[2017-04-08] MEDS ORDERED: *HR* OxyCODONE Immed Rel 5 MG TABLET PO PRN (15:05)
[2017-04-09] MEDS: *HR* OxyCODONE Immed Rel 5 MG TABLET PO PRN ×3 (00:17→13:05)
[2017-04-09] MEDS: *HR* HYDROmorphone 2 MG/ML SYRINGE IVP PRN ×8 (01:26→22:03)
[2017-04-09] MEDS: *HR* Metoprolol 5 MG/5 ML VIAL IVP SCH ×3 (05:54→18:53)
[2017-04-09] MEDS: Insulin LISPRO 300 UNITS/3 ML VIAL SQ SCH ×4 (08:20→20:24)
[2017-04-09] MEDS: Sennosides 8.6 MG TABLET PO SCH ×2 (08:23→20:19)
[2017-04-09] MEDS: *HR* Rivaroxaban 15 MG TABLET PO SCH ×2 (08:23→20:20)
[2017-04-09] MEDS: Pregabalin 75 MG CAPSULE PO SCH ×2 (08:23→20:20)
[2017-04-09] MEDS: Megestrol Acetate 400 MG/10 ML UDC PO SCH (08:24)
--- NOTE | 2017-04-09 13:28 | Palliative Progress Note ---
Date of Encounter: 04/09/17 Time of Encounter: 13:25 - Assessment and plan (1) Pain management Current Visit: Yes Status: Acute Assessment and plan: She continues to use Dilaudid IV frequently. Dr. Adan managing post op pain. (2) Constipation Current Visit: Yes Status: Acute Assessment and plan: Continues on Senokot/Colace. Patient states feels like she will have BM soon. Monitor Qualifiers: Constipation type: slow transit constipation Qualified Code(s): K59.01 - Slow transit constipation (3) Counseling regarding advanced care planning and goals of care Current Visit: Yes Status: Acute Assessment and plan: Patient awaiting therapy today. She states she will go to rehab if recommended , but refusing to go anywhere other than [facility]. Discussed she should have a back up plan if bed not available, and said "if not, I'm going home. ". Social work notified and will be calling for bed availability. She desires to restart immunotherapy via cancer center as soon as possible. - Time Spent With Patient Total time spent is greater than 50% in coordination of care (as documented) at patient's floor/unit and/or counseling patient: 25 - 35 minutes - Subjective Interval history: Patient awake and alert. Daughter at bedside. C/o pain Left stump, states medications "help a little". Good po intake. Wanting to go home. Awaiting therapy. No notes on chart thus far for PT since surgery. OT note from 04/07 reviewed. - Constitutional Vitals: Abnormal lab results WBC 18.4 K/mcL (4.3-11.1) H 04/07/17 03:45 RBC 2.58 M/mcL (3.82-4.97) L 04/07/17 03:45 Hgb 8.5 g/dL (11.5-15.4) L D 04/07/17 03:45 Hct 24.5 % (35.3-44.9) L 04/07/17 03:45 RDW 22.1 % (11.5-14.5) H 04/07/17 03:45 Band Neutrophils % 6.0 % (0-4) H 04/04/17 16:44 Neutrophils # 15.2 K/mcL (1.6-8.9) H 04/07/17 03:45 Nucleated RBCs/100 WBC 2.4 /100 WBC (0) H 04/07/17 03:45 Polychromasia 1+ (Not Present) A 04/06/17 08:11 Hypochromasia Present (Not Present) A 04/05/17 00:50 Basophilic Stippling 2+ (Not Present) A 04/05/17 19:49 Anisocytosis 2+ (Not Present) A 04/06/17 08:11 Macrocytosis Present (Not Present) A 04/06/17 08:11 Pappenheimer Bodies 3+ (Not Present) A 04/06/17 08:11 Peterson-Green[place] Bodies 1+ (Not Present) A 04/05/17 19:49 PT 17.0 Seconds (9.4-12.1) H 04/04/17 16:46 APTT 51.7 Seconds (26.0-36.0) H 04/06/17 14:01 Sodium 135 mEq/L (136-145) L 04/07/17 03:45 Glucose 129 mg/dL (70-99) H 04/07/17 03:45 POC Glucose 182 (58-89) H 04/09/17 07:36 Calcium 8.5 mg/dL (8.6-10.8) L 04/07/17 03:45 General appearance: Present: no acute distress - Respiratory Respiratory exam: Present: decreased breath sounds, CTAB - Cardiovascular Cardiovascular exam: Present: +S1, +S2 - GI/Abdominal GI/Abdominal exam: Present: normal bowel sounds, soft - Extremities Exam Additional comments: Left AKA, Dressing D/I - Neurological Exam Neurological exam: Present: alert, oriented X3, strengths equal and symetr throughout - Psychiatric Psychiatric exam: Present: depressed, flat affect - Skin Skin exam: Present: dry, pallor, warm Palliative Quality Palliative Quality: Screen for Code Status: Yes, Screen for Goals of Care: Yes, Screen for Pain: Yes, If Pain Regimen Started, Initiate Bowel Regimen: Yes, Screen for Nausea/Vomitting: Yes - Labs CBC & Chem 7: 04/07/17 03:45 04/07/17 03:45 Labs: Laboratory Results - last 24 hr 04/08/17 04/08/17 04/08/17 01:58 07:35 11:40 POC Glucose 163 H 175 H 116 H 04/08/17 04/08/1717 16:39 16:42 19:32 POC Glucose 404 H* 399 H 222 H 04/09/17 07:36 POC Glucose 182 H - ABG Interpretation ABG results: PT/INR, D-dimer PT 17.0 Seconds (9.4-12.1) H 04/04/17 16:46 Consult Discharge Plan - Plan Referrals: Chema Adan MD [Partnered Physician] - 05/07/17 1:00 pm Mazin Wan MD [Primary Care Provider] - 04/20/17 10:15 am (patient is going to rehab, no PCP appointment needed)
[2017-04-10] MEDS: *HR* HYDROmorphone 2 MG/ML SYRINGE IVP PRN ×2 (00:49→05:32)
[2017-04-10] MEDS: *HR* Metoprolol 5 MG/5 ML VIAL IVP SCH ×5 (00:53→23:58)
[2017-04-10] MEDS ORDERED: *HR* OxyCODONE Immed Rel 5 MG TABLET PO PRN ×2 (07:48)
--- NOTE | 2017-04-10 07:52 | Vascular/[facility] Progress Note ---
Date of Encounter: 04/09/17 Time of Encounter: 17:30 - Assessment and plan (1) Ischemia of left lower extremity Current Visit: Yes Status: Acute The patient is postoperative day #3 after left above knee amputation. She is ready for discharge today, however, physical therapy has not yet completed their evaluation. Will await physical therapy evaluation for placement. (2) Essential hypertension Current Visit: Yes Status: Acute (3) Lung cancer Current Visit: Yes Status: Chronic Qualifiers: Laterality: unspecified laterality Lung location: unspecified part of lung Qualified Code(s): C34.90 - Malignant neoplasm of unspecified part of unspecified bronchus or lung (4) Diabetes type 2, uncontrolled Current Visit: Yes Status: Acute Qualifiers: Diabetes mellitus complication status: with circulatory complication Diabetes mellitus complication detail: with peripheral angiopathy without gangrene Diabetes mellitus lobsterman insulin use: unspecified custodial insulin use status Qualified Code(s): E11.51 - Type 2 diabetes mellitus with diabetic peripheral angiopathy without gangrene; E11.65 - Type 2 diabetes mellitus with hyperglycemia (5) Diabetes Current Visit: No Status: Acute Qualifiers: Diabetes mellitus type: due to underlying condition Diabetes mellitus complication status: without complication Diabetes mellitus custodial insulin use: without lobsterman use Qualified Code(s): E08.9 - Diabetes mellitus due to underlying condition without complications (6) Tobacco abuse Current Visit: Yes Status: Acute She was counseled regarding smoking cessation. (7) Deep vein thrombosis (DVT) Current Visit: Yes Status: Acute Continue Xarelto. Qualifiers: DVT location: lower extremity Affected thrombotic vein of extremity: femoral Chronicity: acute Laterality: left Qualified Code(s): I82.412 - Acute embolism and thrombosis of left femoral vein (8) Chronic anemia Current Visit: Yes Status: Chronic The patient has chronic anemia. She remains hemodynamically stable without evidence of ongoing blood loss. (9) Severe protein-calorie malnutrition Current Visit: Yes Status: Chronic The patient has severe protein malnutrition that was present on admission. She continues to receive nutritional supplementation. - Subjective Interval history: The patient continues with intravenous and oral pain control. She reports that she is ready to go to rehab. She denies chest pain or shortness of breath. Vital Signs, Last 4 Hours Temp Pulse Resp BP Pulse Ox 04/10/17 05:51 98.2 F 77 16 130/72 97 - Physical Examination General: Present: Conversant Cardiac: Present: Reg Rate and Rhythm Lungs: Present: Normal Breath Sounds Neuro: Present: Alert and responsive, No focal deficits noted Vascular: Present: Normal capillary refill (right), Surgical incisions (bandage dry) - VTE Documentation of Mechanical Device: Intermittent pneumatic compression device Results 04/07/17 03:45 04/07/17 03:45 Consult Discharge Plan - Plan Referrals: Chema Adan MD [Partnered Physician] - 05/07/17 1:00 pm Mazin Wan MD [Primary Care Provider] - 04/20/17 10:15 am (patient is going to rehab, no PCP appointment needed)
[2017-04-10] MEDS: Megestrol Acetate 400 MG/10 ML UDC PO SCH (08:39)
[2017-04-10] MEDS: Pregabalin 75 MG CAPSULE PO SCH ×2 (08:39→20:54)
[2017-04-10] MEDS: *HR* Rivaroxaban 15 MG TABLET PO SCH ×2 (08:39→20:54)
[2017-04-10] MEDS: Sennosides 8.6 MG TABLET PO SCH ×2 (08:39→20:54)
[2017-04-10] MEDS: Insulin LISPRO 300 UNITS/3 ML VIAL SQ SCH ×4 (08:41→22:28)
[2017-04-10] MEDS: *HR* OxyCODONE Immed Rel 5 MG TABLET PO PRN ×3 (12:31→20:54)
--- NOTE | 2017-04-10 13:54 | Vascular/[facility] Progress Note ---
Date of Encounter: 04/10/17 Time of Encounter: 08:00 - Assessment and plan (1) Ischemia of left lower extremity Current Visit: Yes Status: Acute The patient is postoperative day #4 after left above knee amputation. Her wound is healing well. She will have daily dressing changes with 4 x 4 gauze, kerlix and a comfortably wrapped yasmeen bandage. She is ready for discharge today , she awaits her PT evaluation. Possible discharge today after PT evaluation. (2) Essential hypertension Current Visit: Yes Status: Acute (3) Diabetes type 2, uncontrolled Current Visit: Yes Status: Acute Qualifiers: Diabetes mellitus complication status: with circulatory complication Diabetes mellitus complication detail: with peripheral angiopathy without gangrene Diabetes mellitus retirement insulin use: unspecified cementer machine insulin use status Qualified Code(s): E11.51 - Type 2 diabetes mellitus with diabetic peripheral angiopathy without gangrene; E11.65 - Type 2 diabetes mellitus with hyperglycemia (4) Diabetes Current Visit: No Status: Acute Qualifiers: Diabetes mellitus type: due to underlying condition Diabetes mellitus complication status: without complication Diabetes mellitus cementer machine insulin use: without cementer machine use Qualified Code(s): E08.9 - Diabetes mellitus due to underlying condition without complications (5) Tobacco abuse Current Visit: Yes Status: Acute She was counseled regarding smoking cessation. (6) Deep vein thrombosis (DVT) Current Visit: Yes Status: Acute Continue Xarelto. Qualifiers: DVT location: lower extremity Affected thrombotic vein of extremity: femoral Chronicity: acute Laterality: left Qualified Code(s): I82.412 - Acute embolism and thrombosis of left femoral vein (7) Chronic anemia Current Visit: Yes Status: Chronic The patient has chronic anemia. She remains hemodynamically stable without evidence of ongoing blood loss. (8) Severe protein-calorie malnutrition Current Visit: Yes Status: Chronic The patient has severe protein malnutrition that was present on admission. She continues to receive nutritional supplementation. (9) Metastatic primary lung cancer Current Visit: No Status: Chronic Qualifiers: Laterality: right Qualified Code(s): C34.91 - Malignant neoplasm of unspecified part of right bronchus or lung - Subjective Interval history: Pain control was discussed with the patient. She was on MS Contin prior to admission. She declined to restart it because she does not like how it makes her feel. She was informed that she will not be able to be discharged on intravenous Dilaudid. She stated that Oxycodone would be fine. She states that she is ready for discharge today. She denies chest pain or shortness of breath. - Physical Examination General: Present: Conversant HEENT: Present: Atraumatic Cardiac: Present: Reg Rate and Rhythm Lungs: Present: Normal Breath Sounds Neuro: Present: Alert and responsive Vascular: Present: Surgical incisions (left above knee amputation incision is clean, dry and intact without erythema or drainage) Abdomen: Present: Soft - VTE Documentation of Mechanical Device: Intermittent pneumatic compression device Results 04/07/17 03:45 04/07/17 03:45 Consult Discharge Plan - Plan Referrals: hCema Adan MD [Partnered Physician] - 05/07/17 1:00 pm Mazin Wan MD [Primary Care Provider] - 04/20/17 10:15 am (patient is going to rehab, no PCP appointment needed)
--- NOTE | 2017-04-10 14:00 | Physician Discharge Referral ---
ExtendedCare Referral Info Transfer To: Inpatient rehab Provider in Charge after Transfer: PCP Institutional Level of Care: Skilled - Diagnosis (1) Ischemia of left lower extremity Priority: Primary Status: Acute (2) Essential hypertension Priority: Secondary Status: Chronic (3) Diabetes type 2, uncontrolled Priority: Secondary Status: Chronic (4) Diabetes Priority: Secondary Status: Chronic (5) Tobacco abuse Priority: Secondary Status: Chronic (6) Deep vein thrombosis (DVT) Priority: Secondary Status: Acute (7) Chronic anemia Priority: Secondary Status: Chronic (8) Severe protein-calorie malnutrition Priority: Secondary Status: Chronic (9) Metastatic primary lung cancer Priority: Secondary Status: Chronic Prognosis: Fair Aware of Diagnosis: Patient Aware of Prognosis: Patient - Transfer Medications Home Medications: Metoprolol [Lopressor] 25 mg PO BID 01/27/16 [History] Diclofenac Sodium [Voltaren] 1 appl TP QID PRN 01/09/17 [History] Docusate [Colace] 100 mg PO BID #60 capsule 01/26/17 [Rx] Pregabalin [Lyrica] 75 mg PO BID #60 capsule 01/26/17 [Rx] Sennosides [Senna] 8.6 mg PO BID #60 tablet 01/26/17 [Rx] Prochlorperazine Maleate [Compazine] 10 mg PO Q6HR PRN #90 tablet 01/31/17 [Rx] GuaiFENesin/Codeine [ROBITUSSIN w/CODEINE] 5 ml PO Q8HR PRN #120 ml 02/15/17 [Rx ] Citalopram Hydrobromide [Celexa] 40 mg PO DAILY #30 tab 02/20/17 [Rx] Megestrol Acetate [Megace] 10 ml PO DAILY #300 mls 02/20/17 [Rx] Temazepam [Restoril] 7.5 mg PO HS #30 capsule 02/20/17 [Rx] LORazepam [Ativan] 0.5 - 1 mg PO BID PRN #30 tablet 03/05/17 [Rx] Magic Mouthwash [Magic Mouthwash BLM] 10 ml PO QID PRN #240 ml 03/13/17 [Rx] Lactose-Reduced Food [Ensure Enlive] 237 ml PO TID #90 liquid 03/14/17 [Rx] Dexamethasone 4 mg PO DAILY 03/29/17 [History] metFORMIN [Glucophage] 500 mg PO BIDWM 03/29/17 [History] Oxycodone HCl 1 - 2 mg PO Q4H PRN #60 tab 04/10/17 [Rx] Rivaroxaban [Xarelto] 20 mg PO DAILY tablet 04/10/17 [Rx] Allergies/Adverse Reactions: Allergies gabapentin Allergy (Verified 04/04/17 14:53) Dizziness iodine Allergy (Verified 04/04/17 14:53) Hives metronidazole [From Flagyl] Allergy (Verified 04/04/17 14:53) Hives Penicillins Allergy (Verified 04/04/17 14:53) Anaphylaxis - Respiratory Orders Smoking Cessation: Smoking cessation has been advised. For more information, call the [place] Tobacco Quit Line at 0-734-VJSP-NOW. - Ancillary Orders May use pressure relief devices daily prn, May go on LAVENRE w/family/respon democrat w /meds at nurse discretion PRN, May have alcoholic beverages, May consult with Dentist, Seed Yeast Operator, Deep Submergence Vehicle Crewmember PRN - Advance Directives Living Will: No Power of Carpenter/Labor: No Code Status: Full Code - Mobility Orders Ambulate (per PT/OT recommendations) - Rehabiliation Orders Rehab Potential: Good Rehab Orders: ROM Exercises, Evaluation for Physical Therapy, Evaluation for Occupational Therapy - Treatments Skin tear care topically daily PRN per policy, May check for fecal impaction rectally daily PRN, Fleet enema rectally every other day PRN cleansing purposes List/Other: Dry gauze to incision then wrap left thigh with kerlix. Then apply loosely wrapped yasmeen bandage daily. Gerry will remain in until removed by Dr. Adan. - Diet Orders No Concentrated Sweets CERTIFICATION: I certify that the transfer of the above named patient to an Extended Care Facility is necessary for the continuing treatment of the diagnosis listed. The above information is true and accurate reflection of patient's current condition. Confidential - Redisclosure prohibited without a patient's written consent.
[2017-04-10] MEDS ORDERED: *HR* Morphine Sulfate SR (12 HR) 60 MG TABLET.ER PO SCH (18:00)
[2017-04-11] MEDS: *HR* OxyCODONE Immed Rel 5 MG TABLET PO PRN ×5 (04:21→21:35)
[2017-04-11] MEDS: *HR* Metoprolol 5 MG/5 ML VIAL IVP SCH ×3 (05:57→18:28)
[2017-04-11] MEDS: Sennosides 8.6 MG TABLET PO SCH ×2 (08:43→20:35)
[2017-04-11] MEDS: *HR* Rivaroxaban 15 MG TABLET PO SCH ×2 (08:43→20:35)
[2017-04-11] MEDS: Megestrol Acetate 400 MG/10 ML UDC PO SCH (08:43)
[2017-04-11] MEDS: Insulin LISPRO 300 UNITS/3 ML VIAL SQ SCH ×4 (08:43→21:35)
[2017-04-11] MEDS: Pregabalin 75 MG CAPSULE PO SCH ×2 (08:43→20:35)
--- NOTE | 2017-04-11 18:33 | Vascular/[facility] Progress Note ---
Date of Encounter: 04/11/17 Time of Encounter: 17:20 - Assessment and plan (1) Ischemia of left lower extremity Current Visit: Yes Status: Acute The patient is postoperative day #5 after left above knee amputation. Her wound is healing well. She will have daily dressing changes with 4 x 4 gauze, kerlix and a comfortably wrapped yasmeen bandage. She is ready for discharge and states that she would like to go home. She was informed that physical therapy would need to be confident regarding discharge to home and the appropriate resouces would need to be arranged. If this can be done, it may be possible for her to return home. (2) Essential hypertension Current Visit: Yes Status: Chronic (3) Diabetes type 2, uncontrolled Current Visit: Yes Status: Chronic Qualifiers: Diabetes mellitus complication status: with circulatory complication Diabetes mellitus complication detail: with peripheral angiopathy without gangrene Diabetes mellitus senior care insulin use: unspecified terminal supervisor insulin use status Qualified Code(s): E11.51 - Type 2 diabetes mellitus with diabetic peripheral angiopathy without gangrene; E11.65 - Type 2 diabetes mellitus with hyperglycemia (4) Diabetes Current Visit: No Status: Chronic Qualifiers: Diabetes mellitus type: due to underlying condition Diabetes mellitus complication status: without complication Diabetes mellitus senior care insulin use: without terminal supervisor use Qualified Code(s): E08.9 - Diabetes mellitus due to underlying condition without complications (5) Tobacco abuse Current Visit: Yes Status: Chronic She was counseled regarding smoking cessation. (6) Deep vein thrombosis (DVT) Current Visit: Yes Status: Acute Continue Xarelto. Qualifiers: DVT location: lower extremity Affected thrombotic vein of extremity: femoral Chronicity: acute Laterality: left Qualified Code(s): I82.412 - Acute embolism and thrombosis of left femoral vein (7) Chronic anemia Current Visit: Yes Status: Chronic The patient has chronic anemia. She remains hemodynamically stable without evidence of ongoing blood loss. (8) Severe protein-calorie malnutrition Current Visit: Yes Status: Chronic The patient has severe protein malnutrition that was present on admission. She continues to receive nutritional supplementation. (9) Metastatic primary lung cancer Current Visit: No Status: Chronic Qualifiers: Laterality: right Qualified Code(s): C34.91 - Malignant neoplasm of unspecified part of right bronchus or lung - Subjective Interval history: The patient is alert and reports adequate pain control . She states that she has participated actively in her physical therapy and is eager to go home. She denies chest pain or shortness of breath. Vital Signs, Last 4 Hours Temp Pulse Resp BP Pulse Ox 04/11/17 17:02 98 F 73 18 118/58 95 - VTE Documentation of Mechanical Device: Intermittent pneumatic compression device Results 04/07/17 03:45 04/07/17 03:45 Consult Discharge Plan - Plan Referrals: Chema Adan MD [Partnered Physician] - 05/07/17 1:00 pm Mazin Wan MD [Primary Care Provider] - 04/20/17 10:15 am (patient is going to rehab, no PCP appointment needed)
[2017-04-12] MEDS: *HR* Metoprolol 5 MG/5 ML VIAL IVP SCH ×3 (06:04→11:44)
[2017-04-12] MEDS: *HR* Rivaroxaban 15 MG TABLET PO SCH (07:58)
[2017-04-12] MEDS: Pregabalin 75 MG CAPSULE PO SCH (07:58)
[2017-04-12] MEDS: Megestrol Acetate 400 MG/10 ML UDC PO SCH (07:59)
[2017-04-12] MEDS: Insulin LISPRO 300 UNITS/3 ML VIAL SQ SCH ×2 (07:59→12:11)
[2017-04-12] MEDS: Sennosides 8.6 MG TABLET PO SCH (07:59)
--- NOTE | 2017-04-12 08:52 | Discharge Summary ---
Date of Encounter: 04/12/17 Time of Encounter: 12:15 - Discharge Diagnosis (1) Ischemia of left lower extremity Priority: Primary Status: Acute Comments: The patient was admitted on 04/04/17 with proonged acute left lower extremity ischemia. She underwent emergent thrombectomy. However, her ischemia progressed. She required a left above knee amputation on 04/06/17. She tolerated the procedure well. Her wound is healing. She will be discharged today. (2) Essential hypertension Priority: Secondary Status: Chronic Comments: She was counseled regarding atherosclerotic risk factor reduction. 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 use: unspecified fpc insulin use status Qualified Code(s): E11.51 - Type 2 diabetes mellitus with diabetic peripheral angiopathy without gangrene; E11.65 - Type 2 diabetes mellitus with hyperglycemia (4) Diabetes Priority: Secondary Status: Chronic Qualifiers: Diabetes mellitus type: due to underlying condition Diabetes mellitus complication status: without complication Diabetes mellitus fpc insulin use: without local intermodal truck driver use Qualified Code(s): E08.9 - Diabetes mellitus due to underlying condition without complications (5) Tobacco abuse Priority: Secondary Status: Chronic Comments: She was counseled regarding smoking cessation. (6) Deep vein thrombosis (DVT) Priority: Secondary Status: Acute Comments: The patient was noted to have an acute left lower extremity DVT that was present on admission. She will continue with Xarelto. Qualifiers: DVT location: lower extremity Affected thrombotic vein of extremity: femoral Chronicity: acute Laterality: left Qualified Code(s): I82.412 - Acute embolism and thrombosis of left femoral vein (7) Chronic anemia Priority: Secondary Status: Chronic Comments: The patient has chronic anemia that was present on admission. Her arrival hemoglobin was 4.2. She required 2 units of PRBCs prior to surgery and another unit after her procedure. She has remained hemodynamically stable since admission. (8) Severe protein-calorie malnutrition Priority: Secondary Status: Chronic Comments: The patient has sever malnutrition with a BMI <14 on admission. She was on nutritional supplementation prior to admission and her supplements have been continued. (9) Metastatic primary lung cancer Priority: Secondary Status: Chronic Comments: The patient has metastatic lung cancer and will follow-up with Oncology. Qualifiers: Laterality: right Qualified Code(s): C34.91 - Malignant neoplasm of unspecified part of right bronchus or lung - Discharge Medications Prescriptions: Rivaroxaban [Xarelto] 20 mg PO DAILY #30 tablet Home Medications: Metoprolol [Lopressor] 25 mg PO BID 01/27/16 [History] Diclofenac Sodium [Voltaren] 1 appl TP QID PRN 01/09/17 [History] Docusate [Colace] 100 mg PO BID #60 capsule 01/26/17 [Rx] Pregabalin [Lyrica] 75 mg PO BID #60 capsule 01/26/17 [Rx] Sennosides [Senna] 8.6 mg PO BID #60 tablet 01/26/17 [Rx] Prochlorperazine Maleate [Compazine] 10 mg PO Q6HR PRN #90 tablet 01/31/17 [Rx] GuaiFENesin/Codeine [ROBITUSSIN w/CODEINE] 5 ml PO Q8HR PRN #120 ml 02/15/17 [Rx ] Citalopram Hydrobromide [Celexa] 40 mg PO DAILY #30 tab 02/20/17 [Rx] Megestrol Acetate [Megace] 10 ml PO DAILY #300 mls 02/20/17 [Rx] Temazepam [Restoril] 7.5 mg PO HS #30 capsule 02/20/17 [Rx] LORazepam [Ativan] 0.5 - 1 mg PO BID PRN #30 tablet 03/05/17 [Rx] Magic Mouthwash [Magic Mouthwash BLM] 10 ml PO QID PRN #240 ml 03/13/17 [Rx] Lactose-Reduced Food [Ensure Enlive] 237 ml PO TID #90 liquid 03/14/17 [Rx] Dexamethasone 4 mg PO DAILY 03/29/17 [History] metFORMIN [Glucophage] 500 mg PO BIDWM 03/29/17 [History] Oxycodone HCl 1 - 2 mg PO Q4H PRN #60 tab 04/10/17 [Rx] Rivaroxaban [Xarelto] 20 mg PO DAILY #30 tablet 04/12/17 [Rx] Allergies/Adverse Reactions: Allergies gabapentin Allergy (Verified 04/04/17 14:53) Dizziness iodine Allergy (Verified 04/04/17 14:53) Hives metronidazole [From Flagyl] Allergy (Verified 04/04/17 14:53) Hives Penicillins Allergy (Verified 04/04/17 14:53) Anaphylaxis Date of admission: 04/04/17 18:34 Primary care physician: Mazin Wan MD Consults: 04/05/17 02:03 Consult to Nutrition [CONS] Routine Comment: Consulting Provider: NUTRITION Reason for Dietary Consult: MST Score Consult to Ban[employer] [CONS] Routine Reason for SW Consult: financial concerns, patient will probably nee follow up care in home. Limb ischemia, not viable limb, will need left leg amputation. Will need discharge planning. 04/05/17 08:19 Consult to Physical Therapy [CONS] Routine Comment: Evaluate, develop and implement POC Reason for Consult: Limb ischemia, not viable limb, will need left leg amputation. 04/05/17 08:21 OT [Consult to Occupational Therapy] [CONS] Routine Comment: Evaluate, develop and implement POC Reason for Consult: Limb ischemia, not viable limb, will need left leg amputation. 04/05/17 08:22 Consult to Palliative Care [CONS] Routine Comment: Consulting Provider: Palliative Care Judi Reason for Consult: Stage 4 lung cancer, anemia of uncertain etiology, left lower extremity DVT, left leg is nonviable and will require amputation above the knee, severe caloric malnutrition. Time Notified: 08:25 Call Completed: Yes 04/11/17 03:05 Consult to Internet Merchant [CONS] Routine Comment: Reason for Consult: Patient unaware of proper diabetic diet. Procedure(s) Performed: Left lower extremity thrombectomy, left above knee amputation. Discharging clinician: Chema Adan Anticipated date of discharge: 04/12/17 - Patient Status Disposition: Home Health Service Condition: Good Functional capacity at discharge: uses cane/walker Overall status at discharge: patient is progressing back to baseline - Discharge Instructions Instructions: Oxycodone/Acetaminophen (By mouth), Rivaroxaban (By mouth), Pancreatitis (DC), Urinary Tract Infection in Women (DC), Above the Knee Amputation (DC), Diabetes Mellitus Type 2 in Adults (DC), Peripheral Vascular Disorders (DC), Acute Wound Care (DC), Acute Wound Care (GEN), Chronic Hypertension (DC), Cigarette Smoking and Your Health, Medical Technical Writer (GEN) Follow Up With: Chema Adan MD [Partnered Physician] - 05/07/17 1:00 pm Mazin Wan MD [Primary Care Provider] - 04/20/17 10:15 am (patient is going to rehab, no PCP appointment needed) Additional Instructions: wash wound gently daily with soap and water. Apply dry gauze, kerlix and loosely wrapped yasmeen bandage daily. Paperwork given to you for getting the rest of the year Xarelto for discount tucker. Please take this prescription to Dr. Adan's followup appt so he can fill paperwork out to get your Xarelto after this first initial month's supply. We are setting you up with [facility]. - Diet and Activity Activity: as per physical therapy Diet: advance to your usual diet - Hospital Course Hospital course: Ms. Genao is a 52 year old female who had delayed presentation of acute left lower extremity ischemia on 04/04/17. She was found to have a hemoglobin of 4.2 on admission and was given 2 units of PRBCs prior to surgery. She then underwent emergent thrombectomy. However, her leg did not improve after the procedure. She received 1 unit of PRBCs after her procedure. She was informed regardign the need for amputation. Initially she was not interested and hospice was consulted. She then stated that she wished to proceed. She then underwent a left above knee amputation and remained hemodynamically stable with a stable hemoglobin postoperatively. She tolerated the procedure well. She participated in physical therapy and occupational therapy. Initially, she was scheduled for inpatient rehab. However, she participated actively and made progress while awaiting placement. She was felt to be safe for discharge to home with home PT/OT and [facility]. The patient preferred to go to her own home and was discharged in stable condition without complications. Time spent discussing smoking cessation with patient: 3 to 10 minutes - Time Spent with Patient Total time spent providing and/or coordinating discharge services: Exam Vital Signs, Last 4 Hours Temp Pulse Resp BP Pulse Ox 04/12/17 06:55 98.4 F 86 18 124/65 98 General: Present: Conversant, No Apparent Distress HEENT: Present: Atraumatic Cardiac: Present: Reg Rate and Rhythm Lungs: Present: Normal Breath Sounds Neuro: Present: Alert and responsive, No focal deficits noted Abdomen: Present: Soft Vascular: Present: Normal capillary refill, Surgical incisions (incision clean and dry withotu erythema or drainage) Skin: Present: No rashes noted on visualized skin - VTE Documentation of Mechanical Device: Intermittent pneumatic compression device
[2017-04-12] MEDS: *HR* OxyCODONE Immed Rel 5 MG TABLET PO PRN (11:42)
[2017-04-12 11:55] VITALS: BP 111/69
--- NOTE | 2017-04-12 12:39 | Physician Discharge Referral ---
Home Health/Hosp Referral Info Transfer to: Home Health Provider in Charge Post Discharge: PCP - Diagnosis (1) Ischemia of left lower extremity Priority: Primary Status: Acute (2) Essential hypertension Priority: Secondary Status: Chronic (3) Diabetes type 2, uncontrolled Priority: Secondary Status: Chronic (4) Diabetes Priority: Secondary Status: Chronic (5) Tobacco abuse Priority: Secondary Status: Chronic (6) Deep vein thrombosis (DVT) Priority: Secondary Status: Acute (7) Chronic anemia Priority: Secondary Status: Chronic (8) Severe protein-calorie malnutrition Priority: Secondary Status: Chronic (9) Metastatic primary lung cancer Priority: Secondary Status: Chronic - Respiratory Orders Smoking Cessation: Smoking cessation has been advised. For more information, call the [employer] Tobacco Quit Line at 8-757-XZXK-NOW. - Diet/Nutrition Diet/Nutrition Orders: Regular - Activity Activity Orders: Walker Activity: List: Activity per physical therapy recommendations. - Services Needed Following services are medically necessary services: Physical Therapy, Occupational Therapy Home Care Orders: Cleanse wound gently daily with soap and water. Pat to dry. Dry gauze, kerlix an loosely wrapped yasmeen bandage to left lower extremity wound daily. - Transfer Medications Prescriptions: Rivaroxaban [Xarelto] 20 mg PO DAILY #30 tablet Home Medications: Metoprolol [Lopressor] 25 mg PO BID 01/27/16 [History] Diclofenac Sodium [Voltaren] 1 appl TP QID PRN 01/09/17 [History] Docusate [Colace] 100 mg PO BID #60 capsule 01/26/17 [Rx] Pregabalin [Lyrica] 75 mg PO BID #60 capsule 01/26/17 [Rx] Sennosides [Senna] 8.6 mg PO BID #60 tablet 01/26/17 [Rx] Prochlorperazine Maleate [Compazine] 10 mg PO Q6HR PRN #90 tablet 01/31/17 [Rx] GuaiFENesin/Codeine [ROBITUSSIN w/CODEINE] 5 ml PO Q8HR PRN #120 ml 02/15/17 [Rx ] Citalopram Hydrobromide [Celexa] 40 mg PO DAILY #30 tab 02/20/17 [Rx] Megestrol Acetate [Megace] 10 ml PO DAILY #300 mls 02/20/17 [Rx] Temazepam [Restoril] 7.5 mg PO HS #30 capsule 02/20/17 [Rx] LORazepam [Ativan] 0.5 - 1 mg PO BID PRN #30 tablet 03/05/17 [Rx] Magic Mouthwash [Magic Mouthwash BLM] 10 ml PO QID PRN #240 ml 03/13/17 [Rx] Lactose-Reduced Food [Ensure Enlive] 237 ml PO TID #90 liquid 03/14/17 [Rx] Dexamethasone 4 mg PO DAILY 03/29/17 [History] metFORMIN [Glucophage] 500 mg PO BIDWM 03/29/17 [History] Oxycodone HCl 1 - 2 mg PO Q4H PRN #60 tab 04/10/17 [Rx] Rivaroxaban [Xarelto] 20 mg PO DAILY #30 tablet 04/12/17 [Rx] Allergies/Adverse Reactions: Allergies gabapentin Allergy (Verified 04/04/17 14:53) Dizziness iodine Allergy (Verified 04/04/17 14:53) Hives metronidazole [From Flagyl] Allergy (Verified 04/04/17 14:53) Hives Penicillins Allergy (Verified 04/04/17 14:53) Anaphylaxis Certification: Further, I certify that my clinical findings support that this patient is homebound (i.e. absences from home require considerable and taxing effort and are for medical reasons or tenriism services or infrequently or short duration when for other reasons) because: Homebound Reason: Patient requires assistance of a person or device to safely leave home, Post-surgery restriction and or conditions limit ability to leave home, Leaving home requires considerable and taxing effort due to condition Attestation: My signature below is to certify that this patient is under my care and that I, or nurse practitioner, or a physician's greenhouse assistant working with me, has a face-to -face encounter with this patient.
== END 2017-04-12 14:50 | disposition home health service (06) | DRG 181 ==
LOC: EMEROO 14:15 → 2NNU 16:55 → 2NENU 04-08 01:47
PROVIDERS: ADMIT Surgery; ATTEND Surgery

== ENCOUNTER 2017-05-03 18:51 | Inpatient (IN) ==
--- NOTE | 2017-05-03 19:34 | Emergency Department Note ---
Disposition Clinical Impression: DVT (deep venous thrombosis) Qualifiers: DVT location: lower extremity Affected thrombotic vein of extremity: iliac Chronicity: unspecified Laterality: left Qualified Code(s): I82.422 - Acute embolism and thrombosis of left iliac vein Leukocytosis Qualifiers: Leukocytosis type: unspecified Qualified Code(s): D72.829 - Elevated white blood cell count, unspecified Anemia Qualifiers: Anemia type: unspecified type Qualified Code(s): D64.9 - Anemia, unspecified Disposition: Admitted As Inpatient Condition: Good Extremity Problem HPI - General Chief complaint: ED Extremity Problem,Nontraumatic Stated complaint: DVT left leg stump Time Seen by Provider: 05/03/17 19:10 Source: patient Mode of arrival: wheelchair Limitations: physical limitation Nursing Notes Reviewed: Yes Vital Signs Reviewed: Yes - History of Present Illness HPI Narrative: 52-year-old female history of lung cancer currently receiving radiation and immunotherapy, history of thrombotic event causing loss of the left leg with an AKA performed last month who presents to the ER with a chief complaint of DVT in the left leg. Patient reports that she went yesterday to her oncologist to have a CT scan for tumor evaluation. She states that they thought they saw a clot on the scan so a DVT study was ordered. She states she had the imaging today and went home and was called because the results were positive. She denies any shortness of breath. She reports slight chest pain every now and then that she believes is heartburn. She denies a history of PE in the past. She reports compliance with her anticoagulation xarelto. No other complaints. 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 Denies: shortness of breath Context: history of peripheral vascular disease - Related Data Home Medications Medication Instructions Recorded Confirmed Diclofenac Sodium [Voltaren] 1 appl TP QID PRN 01/09/17 05/03/17 metFORMIN [Glucophage] 500 mg PO BIDWM 03/29/17 05/03/17 Docusate [Colace] 100 mg PO Q48H 04/23/17 05/03/17 Megestrol Acetate [Megace] 10 ml PO Q48H 04/23/17 05/03/17 Sennosides [Senna] 8.6 mg PO Q48H 04/23/17 05/03/17 Metoprolol [Lopressor] 25 mg PO BID 05/03/17 05/03/17 Morphine Sulfate SR (12 HR) [MS 30 mg PO Q12HR 05/03/17 05/03/17 Contin] Oxycodone HCl 10 - 20 mg PO Q4H PRN 05/03/17 05/03/17 Pregabalin [Lyrica] 75 mg PO BID 05/03/17 05/03/17 Previous Rx's Medication Instructions Recorded Prochlorperazine Maleate 10 mg PO Q6HR PRN #90 tablet 01/31/17 [Compazine] Magic Mouthwash [Magic Mouthwash 10 ml PO QID PRN #240 ml 03/13/17 BLM] Lactose-Reduced Food [Ensure 237 ml PO TID #90 liquid 03/14/17 Enlive] Rivaroxaban [Xarelto] 20 mg PO DAILY #30 tablet 04/12/17 Citalopram Hydrobromide [Celexa] 40 mg PO DAILY #30 tab 04/23/17 Temazepam [Restoril] 7.5 mg PO HS #30 capsule 04/23/17 Allergies Allergy/AdvReac Type Severity Reaction Status Date / Time gabapentin Allergy Dizziness Verified 04/26/17 16:20 iodine Allergy Hives Verified 04/26/17 16:20 metronidazole [From Flagyl] Allergy Hives Verified 04/26/17 16:20 Penicillins Allergy Anaphylaxis Verified 04/26/17 16:20 All systems ED: reviewed and negative except as stated. Constitutional: Denies: fever Cardiovascular: Reports: chest pain Respiratory: Denies: cough, dyspnea, wheezes Gastrointestinal: Denies: abdominal pain, nausea, vomiting Musculoskeletal: Reports: other (Left lower extremity pain) Past Medical History - Past Medical History Attestation: Yes The following information was validated with the patient. Source: patient Medical history: Reports: cancer, diabetes, hypertension, other Surgical history: Reports: , cholecystectomy, hysterectomy, splenectomy , LE bypass (Right LE fem-pop) Psychiatric history: Reports: anxiety, depression - Social History Smoking Status: Current every day smoker Smokeless Tobacco Status: No Alcohol use: Reports: none Drug use: Reports: none Physical Exam - General Limitations: no limitations General appearance: alert, in no apparent distress - Head Head exam: atraumatic, normocephalic, normal inspection - Eye Eye exam: Present: normal appearance, EOMI - ENT ENT exam: normal exam - Neck Neck exam: Present: normal inspection - Chest Chest inspection: Present: normal inspection, symmetric chest wall rise - Cardiovascular Cardiovascular exam: Present: regular rate, normal rhythm, normal heart sounds - Abdominal Exam Abdominal exam: Present: soft, Non-Tender. Absent: tenderness - Extremities Exam Extremities exam: Present: normal inspection, full ROM - Expanded Upper Extremity Exam Shoulder exam: Present: normal inspection, full ROM Arm exam: Present: normal inspection, full ROM Elbow exam: Present: normal inspection, full ROM Forearm/Wrist exam: Present: normal inspection, full ROM Hand exam: Present: normal inspection, full ROM - Expanded Lower Extremity Exam Hip/Pelvis exam: Present: normal inspection, full ROM Upper leg exam: Present: normal inspection, other (Left AKA roughly 5 inches below the left iliac crease.) Knee exam: Present: normal inspection, full ROM Lower leg exam: Present: normal inspection, full ROM Ankle exam: Present: normal inspection, full ROM Foot/toe exam: Present: normal inspection, full ROM - Neurological Exam Neurological exam: Present: alert - Psychiatric Psychiatric exam: Present: normal affect, normal mood - Skin Skin exam: Present: warm, dry, intact, normal color Course Course Narrative: Patient seen and examined. Vital signs reviewed. We will get coags and CBC. She will likely require admission to the hospital for heparinization given that she is having breakthrough clots on her anticoagulation. - Consultations Consultation #1: I spoke with the on-call vascular surgeon at the request of the hospitalist. Dr. Chance reports there is no further vascular intervention indicated at this time and agrees with heparinizing the patient and admitting to manage her anticoagulation due to her coagulopathy. Vital Signs Temperature 98.1 F 05/03/17 18:55 Pulse Rate 88 05/03/17 18:55 Respiratory Rate 18 05/03/17 18:55 Blood Pressure 142/76 05/03/17 18:55 O2 Sat by Pulse Oximetry 97 05/03/17 18:55 Temperature 98.1 F 05/03/17 18:55 Pulse Rate 84 05/03/17 20:36 Respiratory Rate 18 05/03/17 18:55 Blood Pressure 145/89 05/03/17 20:36 O2 Sat by Pulse Oximetry 97 05/03/17 18:55 Extremity Problem, Nontraumati - MDM Narrative Medical decision making narrative: 52-year-old female presents to the ER due to positive DVT study in the left lower extremity. She has a history significant for an acute ischemic event with thrombectomy and then resulting AKA of the left leg. She was placed on anticoagulation but ended up having another DVT in her left lower extremity just proximal to the stump. Patient placed on heparin in the emergency department. Admitted to the hospitalist service for further management. - Lab Data Lab results reviewed: Yes I reviewed the patient's lab results. Result diagrams: 05/03/17 19:54 Lab Results 05/03/17 05/03/17 Range/Units 19:54 19:54 WBC 22.5 H (4.3-11.1) K/mcL RBC 3.10 L (3.82-4.97) M/mcL Hgb 9.6 L (11.5-15.4) g/dL Hct 30.4 L (35.3-44.9) % MCV 98.1 (83.0-100.0) fL MCH 31.0 (28.0-33.3) pg MCHC 31.6 (31.6-35.5) g/dL RDW 17.6 H (11.5-14.5) % Plt Count 561 H (140-400) K/mcL MPV 9.4 (9.4-12.4) fL Immature Gran % 0.6 (0-4) % Seg Neutrophils % 82.5 % Lymphocytes % 9.0 % Monocytes % 7.2 % Eosinophils % 0.4 % Basophils % 0.3 % Neutrophils # 18.6 H (1.6-8.9) K/mcL Lymphocytes # 2.0 (0.6-4.6) K/mcL Monocytes # 1.6 H (0.0-1.3) K/mcL Eosinophils # 0.1 (0.0-0.6) K/mcL Basophils # 0.1 (0.0-0.2) K/mcL PT 15.3 H (9.4-12.1) Seconds INR 1.4 APTT 34.3 (26.0-36.0) Seconds Critical Care Time Critical Care Time: Yes Total Critical Care Time: 40 Attestation: Critical care performed: Time is exclusive of separately billable procedures. Time includes: direct patient care, patient reassessment, coordination of patient care, interpretation of data (laboratory data, radiology data, and respiratory data), review of patient's medical records, medical consultation and documentation of patient care. Procedures included in critical care time: Procedures excluded from critical care time: Cristian - Cristian Situation: Demographics, MOA Background: Presenting Complaint, Relevant PMH, Meds, & Allergies Assessment: Vital Signs, Course and respsone to treatment, Exam Concerns, Patient/Family Expectation, Pertinant Lab Results, Outstanding Labs Recommendation: Barrier(s) to disposition, Recommendation based on pending studies, treatments, or consults Cristian Report Given to: Dr Charles Foster Repor Time: 20:33 Attestation Statement - Attestation Attestation: I, Praful Cueva MD, personally evaluated this patient and discussed their management with the resident physician. I reviewed the resident's note and agree with the documented findings, medical decision making, and plan of care. Patient referred to the emergency department after she was found to have a positive DVT study as an outpatient today. Patient has a history of cancer and yesterday had a scan which was suspicious for DVT in the left pelvis. Her oncologist ordered an outpatient Doppler today which was positive for DVT. Patient had a left AKA 4 weeks ago. She is currently on Xarelto. She denies any chest pain or shortness of breath. No fever. No pain or swelling in the leg other than pain in the distal stump from her incision. She does still have sulma in the incision. On examination patient is a well-developed thin female in no acute distress. She is alert and oriented 3. There is no cyanosis or diaphoresis. Breath sounds are clear and equal bilaterally. Heart regular rate and rhythm. Abdomen soft and nontender with normal bowel sounds. She has a high left above- knee amputation. There is no obvious swelling of the stump. There is some tenderness over the distal stump but no tenderness proximally. She was referred here by her oncologist for admission for IV anticoagulation. We will consult the hospitalist for admission. Dr. Benitez discussed the case with vascular surgery on-call, Dr. Chance, and he did not feel there is any acute vascular surgery issue. Recommended anticoagulation with heparin and admission by the hospitalist and consultating hematology. The hospitalist, Dr. Soto, was consulted and accepted admission of the patient.
[2017-05-03 20:02] LABS: Basophils # 0.1 K/mcL (0.0-0.2); Basophils % 0.3 %; Eosinophils # 0.1 K/mcL (0.0-0.6); Eosinophils % 0.4 %; Hematocrit 30.4 % (35.3-44.9); Hemoglobin 9.6 g/dL (11.5-15.4); Immature Granulocytes % 0.6 % (0-4); Mean Corpuscular HGB Conc 31.6 g/dL (31.6-35.5); Mean Corpuscular Volume 98.1 fL (83.0-100.0); Mean Platelet Volume 9.4 fL (9.4-12.4); Monocytes # 1.6 K/mcL (0.0-1.3); Monocytes % 7.2 %; Neutrophils # 18.6 K/mcL (1.6-8.9); Platelet Count 561 K/mcL (140-400); Red Cell Distribution Width 17.6 % (11.5-14.5); Segmented Neutrophils % 82.5 %
[2017-05-03 20:08] LABS: INR 1.4; Prothrombin Time 15.3 Seconds (9.4-12.1)
[2017-05-03 20:11] LABS: Activated Partial Thrombo Time 34.3 Seconds (26.0-36.0)
[2017-05-03] MEDS ORDERED: *HR* Heparin 5,000 UNIT/ML VIAL IVP PRN ×2 (20:13)
[2017-05-03] MEDS ORDERED: *HR* Heparin 5,000 UNIT/ML VIAL IVP ONE (20:13)
[2017-05-03] MEDS ORDERED: Heparin 25,000 UNIT/500 ML D5W 25,000 UNIT/500 ML MLS IVC SCH (20:15)
[2017-05-03] MEDS ORDERED: *HR* OxyCODONE/APAP 10/325 TABLET PO ONE (20:49)
[2017-05-03] MEDS ORDERED: Ondansetron 4 MG/2 ML VIAL IVP PRN (23:33)
--- NOTE | 2017-05-03 23:33 | Internal Med History&Physical ---
<Tyler Galvez - Last Filed: 05/04/17 00:41> Date of Encounter: 05/03/17 Time of Encounter: 23:00 Assessment and Plan (1) DVT (deep venous thrombosis) Current visit: Yes Status: Acute - This is patient's secondary episode of DVT. - Patient's first DVT episode was in March 2017 and leaded to significant left lower extremity ischemia requiring left AKA. - Patient was on Xarelto after first DVT episode. - Given patient's significant cancer history, Lovenox will be the first choice for anticoagulation. But patient does not like the idea of self-injection and states she needs time to think about that. Will continue heparin drip at this time. - Patient may benefit from surgical intervention or IVC filter. Will consult vascular surgery and appreciate evaluation and recommendations. - May consider having oncology on board if patient likes to discuss anticoagulation options other than Lovenox. Qualifiers: DVT location: lower extremity Affected thrombotic vein of extremity: iliac Chronicity: unspecified Laterality: left Qualified Code(s): I82.422 - Acute embolism and thrombosis of left iliac vein (2) Metastatic primary lung cancer Current visit: No Status: Chronic - Right lung adenocarcinoma with metastasis to liver. - S/p palliative radiation therapy. Current on immunotherapy with Keytruda ( last dose on 03/05/17). Qualifiers: Laterality: right Qualified Code(s): - (3) Diabetes Current visit: No Status: Chronic - Hgb A1C 6.8 on 11/23/16. - Continue home dose metformin as patient does not like insulin shots. Qualifiers: Diabetes mellitus type: due to underlying condition Diabetes mellitus complication status: without complication Diabetes mellitus mcc insulin use: without mcc use Qualified Code(s): E08.9 - Diabetes mellitus due to underlying condition without complications (4) Essential hypertension Current visit: No Status: Chronic - Continue home antihypertensive regimen. (5) Tobacco abuse Current visit: No Status: Chronic - Smoking cessation counseling. - Nicotine patch. (6) Cancer related pain Current visit: No Status: Acute - Continue home pain medication regimen. Internal Medicine - H&P: HPI Chief complaint: left leg DVT Admitted From: Emergency Dept Plans for Post Hospital Care: Home History of present illness: Ms. Genao is a 52 year old female with PMH of chronic pancreatitis, metastatic right lung adenocarcinoma s/p palliative radiation therapy & currently on Keytruda (last dose on 03/05/17) and recent history of left LE DVT s/ p left AKA on 04/06/17 & currently on Xarelto. Patient had CT chest/abdomen/ pelvis with IV contrast on 05/02/17 and that found filling defect within the left external iliac vein and common femoral vein, concerning for deep venous thrombosis. Patient had LLE venous doppler today and was called into ED after it confirmed left leg DVT. Patient reports having intermittent left leg pain at amputation site since the left AKA. Patient denies shortness of breath, hemoptysis, chest pain, fever, chills, nausea, vomiting, diarrhea, abdominal pain. Patient denies recent trauma or injury and has been compliant to her Xarelto. Patient is currently on heparin drip which was started in ED. Other anticoagulation options including Lovenox was discussed with patient. Patient seems to be hesitant about the idea of self-injection and states she needs time to think about that. Patient likes to be full code. Past Med Surg Social Fam HX - Past Medical History Medical history: cancer, diabetes, hypertension, other Psychiatric history: anxiety - Past Surgical History Surgical History: , cholecystectomy, hysterectomy, splenectomy, other ( Left AKA), LE bypass - Social History Smoking Status: Current every day smoker Smokeless Tobacco Status: No Alcohol use: none Drug use: none - Family History Father Living Status: Hx Family Cancer: Yes (Lung cancer) Mother Living Status: Still Living Hx Family Cardiac Disorders: Yes (triple bypass, stents) Hx Family Endocrine Disorder: Yes (DM) Internal Medicine - H&P: Meds Diclofenac Sodium [Voltaren] 1 appl TP QID PRN 01/09/17 [History] Prochlorperazine Maleate [Compazine] 10 mg PO Q6HR PRN #90 tablet 01/31/17 [Rx] Magic Mouthwash [Magic Mouthwash BLM] 10 ml PO QID PRN #240 ml 03/13/17 [Rx] Lactose-Reduced Food [Ensure Enlive] 237 ml PO TID #90 liquid 03/14/17 [Rx] metFORMIN [Glucophage] 500 mg PO BIDWM 03/29/17 [History] Rivaroxaban [Xarelto] 20 mg PO DAILY #30 tablet 04/12/17 [Rx] Citalopram Hydrobromide [Celexa] 40 mg PO DAILY #30 tab 04/23/17 [Rx] Docusate [Colace] 100 mg PO Q48H 04/23/17 [History] Megestrol Acetate [Megace] 10 ml PO Q48H 04/23/17 [History] Sennosides [Senna] 8.6 mg PO Q48H 04/23/17 [History] Temazepam [Restoril] 7.5 mg PO HS #30 capsule 04/23/17 [Rx] Metoprolol [Lopressor] 25 mg PO BID 05/03/17 [History] Morphine Sulfate SR (12 HR) [MS Contin] 30 mg PO Q12HR 05/03/17 [History] Oxycodone HCl 10 - 20 mg PO Q4H PRN 05/03/17 [History] Pregabalin [Lyrica] 75 mg PO BID 05/03/17 [History] Allergies gabapentin Allergy (Verified 04/26/17 16:20) Dizziness iodine Allergy (Verified 04/26/17 16:20) Hives metronidazole [From Flagyl] Allergy (Verified 04/26/17 16:20) Hives Penicillins Allergy (Verified 04/26/17 16:20) Anaphylaxis All Systems PM: A 10-system review of systems was performed and is negative for pertinent findings except as documented above in the HPI. - Constitutional Constitutional: weight loss (2 lb since last month. ), no chills, no fever(s) - EENT Eyes: no change in vision Ears: no decreased hearing Nose, mouth and throat: no dysphagia, no odynophagia - Cardiovascular Cardiovascular ROS IM: no chest pain, no lightheadedness, no syncope - Respiratory Respiratory: cough (Occasional dry cough), no dyspnea, no hemoptysis, no excessive phlegm production - Gastrointestinal Gastrointestinal: no abdominal pain, no constipation, no diarrhea, no hematochezia, no melena, no nausea, no vomiting - Genitourinary Genitourinary: no difficulty urinating, no dysuria, no hematuria - Integumentary Integumentary IM: no pruritus, no rash - Neurological Neurological ROS: no focal weakness, no numbness, no tingling - Hematologic/Lymphatic Hematologic/Lymphatic: no easy bleeding, no easy bruising - Constitutional Vitals: Temp Pulse Resp BP Pulse Ox 98.1 F 76 18 140/89 97 05/03/17 22:06 05/03/17 22:06 05/03/17 22:06 05/03/17 22:06 05/03/17 22:06 General appearance: Present: cooperative, A&O X 3, no acute distress, answers questions appropriately - Head Head exam: Present: atraumatic, normocephalic - Eye Eye exam: Present: EOMI, PERRL, conjuntiva pink, sclera anicteric - Neck Neck exam general surgery: Present: supple, trachea midline. Absent: lymphadenopathy - Respiratory Respiratory exam: Present: decreased breath sounds (Right basiliar). Absent: accessory muscle use, rales, rhonchi, wheezes - Cardiovascular Cardiovascular exam: Present: RRR, +S1, +S2. Absent: diastolic murmur, gallop, rubs, systolic murmur - GI/Abdominal GI/Abdominal exam: Present: normal bowel sounds, soft, no peritoneal signs. Absent: distended, tenderness - Extremities Exam Extremities exam: Present: warm, radial pulses palpable and symetrical. Absent : calf tenderness, cyanotic, pedal edema Additional comments: Left AKA noted. - Neurological Exam Neurological exam: Present: CN II-XII intact, oriented X3, no focal deficits. Absent: pronater drift, facial droop, speech deficit - Skin Skin exam: Present: dry, intact, warm Internal Med - H&P Results - Labs CBC & Chem 7: 05/03/17 19:54 <Oswald Rosario - Last Filed: 05/04/17 02:42> Date of Encounter: 05/03/17 Internal Medicine - H&P: HPI History of present illness: Ms. Genao is a 52 year old female All Systems PM: A 10-system review of systems was performed and is negative for pertinent findings except as documented above in the HPI. - Constitutional Vitals: Temp Pulse Resp BP Pulse Ox 98.1 F 76 18 140/89 97 05/03/17 22:06 05/03/17 22:06 05/03/17 22:06 05/03/17 22:06 05/03/17 22:06 Internal Med - H&P Results - Labs CBC & Chem 7: 05/04/17 01:29 05/04/17 01:29 Labs: Short CBC 05/04/17 Range/Units 01:29 WBC 18.3 H (4.3-11.1) K/mcL Hgb 9.2 L (11.5-15.4) g/dL Hct 29.4 L (35.3-44.9) % Plt Count 554 H (140-400) K/mcL Neutrophils # 15.1 H (1.6-8.9) K/mcL BMP 05/04/17 01:29 Sodium 135 L Potassium 3.6 Chloride 101 Carbon Dioxide 22 BUN 9 Creatinine 0.78 Glucose 338 H Calcium 9.0 - Diagnostic Studies Venous US Status: image reviewed by me - Attending Attestation I personally interviewed and examined this patient and my medical decision- making was reviewed with the Resident Physician. I agree with the documented findings, disposition and treatment plan as described. Oswald Rosario MD, MPH Hospitalist
[2017-05-03] MEDS ORDERED: Magic Mouthwash 10 ML UD Cup PO PRN (23:35)
[2017-05-03] MEDS ORDERED: Megestrol Acetate 400 MG/10 ML UDC PO SCH (23:45)
[2017-05-03] MEDS ORDERED: Sennosides 8.6 MG TABLET PO SCH (23:45)
[2017-05-04] MEDS: *HR* OxyCODONE Immed Rel 5 MG TABLET PO PRN ×3 (00:20→20:54)
[2017-05-04 01:50] LABS: Basophils # 0.1 K/mcL (0.0-0.2); Basophils % 0.3 %; Eosinophils # 0.2 K/mcL (0.0-0.6); Eosinophils % 1.1 %; Hematocrit 29.4 % (35.3-44.9); Hemoglobin 9.2 g/dL (11.5-15.4); Immature Granulocytes % 0.4 % (0-4); Lymphocytes # 1.8 K/mcL (0.6-4.6); Lymphocytes % 9.6 %; Mean Corpuscular HGB Conc 31.3 g/dL (31.6-35.5); Mean Corpuscular Hemoglobin 31.3 pg (28.0-33.3); Mean Platelet Volume 9.5 fL (9.4-12.4); Monocytes # 1.2 K/mcL (0.0-1.3); Monocytes % 6.4 %; Neutrophils # 15.1 K/mcL (1.6-8.9); Platelet Count 554 K/mcL (140-400); Red Blood Count 2.94 M/mcL (3.82-4.97); Red Cell Distribution Width 17.4 % (11.5-14.5); Segmented Neutrophils % 82.2 %
[2017-05-04 02:08] LABS: BUN/Creatinine Ratio 12 (6-26); Blood Urea Nitrogen 9 mg/dL (7-20); Carbon Dioxide 22 mEq/L (19-29); Chloride 101 mEq/L (98-109); Glucose 338 mg/dL (70-99); Osmolality,Calculated 292 (280-300); Potassium 3.6 mEq/L (3.5-4.5); Sodium 135 mEq/L (136-145); eGFR For African Americans > 60 (> 60); eGFR For Non-African Americans > 60 (> 60)
[2017-05-04] MEDS: Nicotine 14 MG PATCH.TD24 TD SCH ×2 (02:45→09:35)
[2017-05-04] MEDS: *HR* Morphine Sulfate SR (12 HR) 30 MG TABLET.ER PO SCH ×2 (06:48→17:38)
[2017-05-04] MEDS ORDERED: *HR* Metformin 500 MG TABLET PO SCH (08:00)
[2017-05-04] MEDS ORDERED: D5% in Water 1,000 ML IVC PRN (08:22)
[2017-05-04] MEDS ORDERED: Dextrose Gel 15 GM PO PRN ×2 (08:22)
[2017-05-04] MEDS ORDERED: *HR* Dextrose 50 % in Water (Syg) 50 ML SYRINGE IVP PRN (08:22)
[2017-05-04] MEDS ORDERED: Insulin DETEMIR 100 UNIT/ML X5UNITS SQ SCH (08:30)
--- NOTE | 2017-05-04 08:51 | Internal Med Progress Note ---
Date of Encounter: 05/04/17 Time of Encounter: 08:49 - Assessment and plan (1) Deep vein thrombosis (DVT) Current Visit: No Status: Chronic Assessment and plan: DVT in the L iliac.. possibly complicated with the Megace. Also sec. to Malignancy. She is on IV heparin. Plan is to either place filter and cont. the Xarlto, or treat with home Lovenox; she is not fond of wanting to do home injections. Payment with insurance may be another issue. She would not do will with a PE. Overall her Prognosis is poor. She can be discharged once we have a plan completed. I am awaiting call back from Dr. Adan Qualifiers: DVT location: lower extremity Affected thrombotic vein of extremity: femoral Chronicity: acute Laterality: left Qualified Code(s): I82.412 - Acute embolism and thrombosis of left femoral vein (2) Chronic anemia Current Visit: No Status: Chronic Assessment and plan: [place] to Cancer (3) Amputation of left lower extremity below knee Current Visit: No Status: Acute Assessment and plan: stump doing well. Amputation was secondary to ischemia (4) Leukocytosis Current Visit: Yes Status: Acute Assessment and plan: Chronic and most likely sec. to Malignancy. No signs of infection Qualifiers: Leukocytosis type: unspecified Qualified Code(s): D72.829 - Elevated white blood cell count, unspecified (5) Metastatic primary lung cancer Current Visit: No Status: Chronic Assessment and plan: Apparently her disease is advancing in the Liver. Qualifiers: Laterality: right Qualified Code(s): C34.91 - Malignant neoplasm of unspecified part of right bronchus or lung (6) Essential hypertension Current Visit: No Status: Chronic Assessment and plan: stable (7) Diabetes type 2, uncontrolled Current Visit: No Status: Chronic Assessment and plan: labile Control.. recent sugar quite high.. will start Insulin. Qualifiers: Diabetes mellitus complication status: with circulatory complication Diabetes mellitus complication detail: with peripheral angiopathy without gangrene Diabetes mellitus manager long term care insulin use: unspecified senior care insulin use status Qualified Code(s): E11.51 - Type 2 diabetes mellitus with diabetic peripheral angiopathy without gangrene; E11.65 - Type 2 diabetes mellitus with hyperglycemia - Time Spent With Patient 25 - 35 minutes - Subjective Interval history: She is without symptoms this AM, sitting up eating breakfast. Evaluated last hosp. stay. No new concerns, does have some expected L stump pain - Constitutional Vitals: Temp Pulse Resp BP Pulse Ox 98.5 F 82 16 107/67 96 05/04/17 06:58 05/04/17 06:58 05/04/17 06:58 05/04/17 06:58 05/04/17 06:58 General appearance: Present: cooperative, A&O X 3, no acute distress, answers questions appropriately - Neck Neck exam general surgery: Present: full ROM, supple, trachea midline - Respiratory Respiratory exam: Present: CTAB. Absent: tachypnea - Cardiovascular Cardiovascular exam: Present: RRR. Absent: JVD, tachycardia - GI/Abdominal GI/Abdominal exam: Present: normal bowel sounds, soft, no peritoneal signs - Extremities Exam Additional comments: L stump incision is dry, healing well.. No erythema. Internal Medicine: Result - Labs CBC & Chem 7: 05/04/17 01:29 05/04/17 01:29 Labs: Short CBC 05/04/17 Range/Units 01:29 WBC 18.3 H (4.3-11.1) K/mcL Hgb 9.2 L (11.5-15.4) g/dL Hct 29.4 L (35.3-44.9) % Plt Count 554 H (140-400) K/mcL Neutrophils # 15.1 H (1.6-8.9) K/mcL BMP 05/04/17 01:29 Sodium 135 L Potassium 3.6 Chloride 101 Carbon Dioxide 22 BUN 9 Creatinine 0.78 Glucose 338 H Calcium 9.0 - ABG Interpretation ABG results: PT/INR, D-dimer PT 15.3 Seconds (9.4-12.1) H 05/03/17 19:54 Consult Discharge Plan - Plan Referrals: Mazin Wan MD [Primary Care Provider] -
[2017-05-04] MEDS: Pregabalin 75 MG CAPSULE PO SCH ×2 (09:35→20:54)
[2017-05-04] MEDS: Insulin LISPRO 300 UNITS/3 ML VIAL SQ SCH ×5 (09:35→17:39)
--- NOTE | 2017-05-04 12:37 | Vascular/Endovasc Consult Note ---
Date of Encounter: 05/04/17 Time of Encounter: 11:45 Assessment and Plan (1) Deep vein thrombosis (DVT) Status: Acute The patient has a significant deep vein thrombosis. She was already on Xarelto. Lovenox has been recommended instead. However, she declines lovenox due to the need for injections. She has lung cancer with poor pulmonary reserve. An inferior vena cava filter has been recommended. The risks, benefits and alternatives were discussed and all questions were answered. She expressed understanding and wishes to proceed. Qualifiers: DVT location: lower extremity Affected thrombotic vein of extremity: femoral Chronicity: acute Laterality: left Qualified Code(s): I82.412 - Acute embolism and thrombosis of left femoral vein (2) Chronic anemia Status: Chronic The patient is hemodynamically stable (3) Diabetes type 2, uncontrolled Status: Chronic Qualifiers: Diabetes mellitus complication status: with circulatory complication Diabetes mellitus complication detail: with peripheral angiopathy without gangrene Diabetes mellitus manager long term care insulin use: unspecified usp insulin use status Qualified Code(s): E11.51 - Type 2 diabetes mellitus with diabetic peripheral angiopathy without gangrene; E11.65 - Type 2 diabetes mellitus with hyperglycemia (4) Essential hypertension Status: Chronic (5) Metastatic primary lung cancer Status: Chronic Qualifiers: Laterality: right Qualified Code(s): C34.91 - Malignant neoplasm of unspecified part of right bronchus or lung (6) Tobacco abuse Status: Chronic She was counseled regarding smoking cessation. (7) Above knee amputation of left lower extremity Status: Chronic Wound is healing well. Staple removal next week. - History of Present Illness Consult date: 05/04/17 Requesting physician: Deion Singh Consult reason: DVT with lung cancer Chief complaint: DVT History of present illness: Ms. Genao is a 52 year old female with a history of acute limb ischemia requiring amputation, lung cancer and deep vein thrombosis. The patient has been anticoagulated with Xarelto. She recently underwent a CT scan and was noted to have a significant iliac thrombus. She was admitted and started on Heparin. The patient was advised that she should be switched to Lovenox. However, she does not want to inject herself. Vascular surgery was consulted for further evaluation. The patient reports that she is comfortable at this time. She denies chest pain or shortness of breath. Past Med Surg Social Fam HX - Past Medical History Medical history: cancer, diabetes, hypertension, other Psychiatric history: anxiety - Past Surgical History Surgical History: , cholecystectomy, hysterectomy, splenectomy, other ( Left AKA), LE bypass - Social History Smoking Status: Current every day smoker Smokeless Tobacco Status: No Alcohol use: none Drug use: none - Family History Father Living Status: Hx Family Cancer: Yes (Lung cancer) Mother Living Status: Still Living Hx Family Cardiac Disorders: Yes (triple bypass, stents) Hx Family Endocrine Disorder: Yes (DM) Medications and Allergies Diclofenac Sodium [Voltaren] 1 appl TP QID PRN 01/09/17 [History] Prochlorperazine Maleate [Compazine] 10 mg PO Q6HR PRN #90 tablet 01/31/17 [Rx] Magic Mouthwash [Magic Mouthwash BLM] 10 ml PO QID PRN #240 ml 03/13/17 [Rx] Lactose-Reduced Food [Ensure Enlive] 237 ml PO TID #90 liquid 03/14/17 [Rx] metFORMIN [Glucophage] 500 mg PO BIDWM 03/29/17 [History] Citalopram Hydrobromide [Celexa] 40 mg PO DAILY #30 tab 04/23/17 [Rx] Docusate [Colace] 100 mg PO Q48H 04/23/17 [History] Sennosides [Senna] 8.6 mg PO Q48H 04/23/17 [History] Temazepam [Restoril] 7.5 mg PO HS #30 capsule 04/23/17 [Rx] Metoprolol [Lopressor] 25 mg PO BID 05/03/17 [History] Morphine Sulfate SR (12 HR) [MS Contin] 30 mg PO Q12HR 05/03/17 [History] Oxycodone HCl 10 - 20 mg PO Q4H PRN 05/03/17 [History] Pregabalin [Lyrica] 75 mg PO BID 05/03/17 [History] Enoxaparin [Lovenox] 40 mg SQ Q12HR 30 Days 05/05/17 [Rx] Nicotine Patch [Nicoderm] 14 mg TD DAILY #30 05/05/17 [Rx] Allergies gabapentin Allergy (Verified 04/26/17 16:20) Dizziness iodine Allergy (Verified 04/26/17 16:20) Hives metronidazole [From Flagyl] Allergy (Verified 04/26/17 16:20) Hives Penicillins Allergy (Verified 04/26/17 16:20) Anaphylaxis All Systems Review: A 10-system review of systems was performed and is negative for pertinent findings except as documented above in the HPI. Exam Vital Signs, Last 4 Hours Temp Pulse Resp BP Pulse Ox 05/04/17 11:36 98.5 F 77 16 118/72 94 General: Present: Conversant, No Apparent Distress HEENT: Present: Atraumatic, Pupils equal Neck: Absent: JVD, Lymphadenopathy, Tracheal deviation Cardiac: Present: Reg Rate and Rhythm, No Murmur Lungs: Present: Normal Breath Sounds, No Wheeze, Rales, Rhonchi Neuro: Present: Alert and responsive, No focal deficits noted, Motor nerves grossly intact, Sensory nerves grossly intact Abdomen: Present: Soft, Non-tender Vascular: Present: Normal capillary refill, Amputation(s) (Left above knee amputation healing well, no erythema or drainage) Skin: Present: No rashes noted on visualized skin Musculoskeletal: Present: No Chest Wall Tenderness Consult Discharge Plan - Plan Referrals: Chema Adan MD [Partnered Physician] - Mazin Wan MD [Primary Care Provider] - Pablo Dover MD [Partnered Physician] - Prescriptions: Enoxaparin [Lovenox] 40 mg SQ Q12HR 30 Days Nicotine Patch [Nicoderm] 14 mg TD DAILY #30
[2017-05-04] MEDS ORDERED: Heparin 1,000 UNITS/500 mL NS 500 ML ONE (14:13)
[2017-05-04] MEDS ORDERED: *HR* FentaNYL (PF) 100 MCG/2 ML VIAL ONE (14:50)
--- NOTE | 2017-05-04 14:55 | Pre-Sedation Evaluation ---
Pre-sedation evaluation - Pre-sedation checklist Date of procedure: 05/04/17 Procedure: INFERIOR VENA CAV FILTER Recent Vitals: Last Vital Signs Temp 98.5 F 05/04/17 11:36 Pulse 77 05/04/17 11:36 Resp 16 05/04/17 11:36 BP 118/72 05/04/17 11:36 Pulse Ox 94 05/04/17 11:36 H&P (including ROS) documented in medical record: Yes Previous reaction to sedatives/anesthetics: No ASA Classification *see protocol: CLASS III-Severe systemic disease Plan of Care: Pt appropriate candidate for procedure/moderate/conscious sedation , Risks/benefits of procedure/sedation discussed w/ patient/family, If not NPO; Risk of intake outweiged by necessity to perform procedure
--- NOTE | 2017-05-04 15:20 | Procedure Note ---
Date of procedure: 05/04/17 Pre-op diagnosis: Left lower extremity DVT, lung cancer Post-op diagnosis: same Procedure: Inferior vena cavagram and placement of Celect inferior vena cava filter via right common femoral vein. Direct pressure held for hemostasis. Surgeon: Chema Adan Estimated blood loss (cc): 5 Pathology: none sent Condition: stable Disposition: floor
--- NOTE | 2017-05-04 15:49 | Invasive Diagnostic Lab Proc ---
Name: Litzy Juan Date of Study: 05/04/2017 Date: 1965 Ht: 165.0 in Medical Record#: [id number] Age: 52 Wt: 36 lb Gender: Female BSA: 1.33 Order #: [id number] BMI: 13.22 Physicians Performing MD: Chema Adan MD Referring MD: Referring MD: Staff Name Position Time In Grace Hurst RT (R) Scrub Abbie Andrade RT (R) Monitor Emma Saldana RN Network Control Operator Indications DVT, Unilateral Procedures Performed IVC FILTER PLACEMENT Pre-Procedure Checklist Informed consent is complete signed and on chart. H&P is on chart. ID band is on and ID verified with patient. Patient NPO for procedure The procedure was described for the patient and questions were answered. ECG is on chart. Plan of Care Patient will tolerate the procedure without complications. Adequate level of comfort will be maintained. Hemodynamics will remain stable Patient will recover from procedure without complications. Respiratory function will be maintained. Cardiac rhythm will remain stable. Patient temperature will be maintained. Patient and/or family have verbalized understanding of the procedure. Patient Education Chief Complaint/Reason for Test: IVC filter Developmental Category: Adult (18-64 years) Learning Barriers: None Education Needs: Procedure Education Method: Verbal Information Taught: IVC filter Educational Evaluation: Able to repeat information Intravenous Access Time IV Size Location DC'd Fluid/Drip Rate Units RN 14:45 20g 1 /" Patent On Arrival Lt Arm Heparin drip 14.4 ml/hr Emma Saldana RN Allergies Ondansetron Penicillins metronidazole iodine PCN gabapentin Penicillin Flagyl Vital Signs Time BP Systolic BP Diastolic HR O2 Sats ASA 03:03 PM 03:03 PM 03:19 PM 03:15 PM 168 90 86 98 03:18 PM 144 78 85 97 03:21 PM 141 81 84 96 03:25 PM 151 79 78 98 03:27 PM 152 86 83 99 03:30 PM 158 93 82 100 02:49 PM 172 100 92 98 02:51 PM 159 81 93 99 02:54 PM 148 86 89 97 02:57 PM 149 81 88 98 03:00 PM 147 79 85 98 03:03 PM 148 78 86 98 03:06 PM 159 90 88 99 03:09 PM 151 83 89 99 03:12 PM 141 82 87 99 Procedure Medications Time Medication Dose Units Method Route 02:51 PM Fentanyl 50 mcg Intravenous 02:56 PM Heparin 14.4 ml/hr Intravenous 03:05 PM Lidocaine 2% 10 ml Subcutaneous 03:06 PM Lidocaine 2% 4 ml Subcutaneous 03:14 PM Fentanyl 50 mcg Intravenous 03:33 PM Heparin units Held x 2 hours ASA Classification: CLASS III- Severe systemic disease (i.e. prior AMI, diabetes with vascular complications, morbid obesity) Davida Score Preprocedure Postprocedure Activity 2- Moves 4 extremities sustained head lift Activity 2- Moves 4 extremities sustained head lift Circulation 2- SBP +/= 20 points of pre-anesthetic level Circulation 2- SBP +/= 20 points of pre-anesthetic level Consciousness 2- Awake and alert oriented x 3 Consciousness 2- Awake and alert oriented x 3 O2 Saturation 2- Able to maintain O2 satruation of 92% on room air O2 Saturation 2- Able to maintain O2 satruation of 92% on room air Respiratory 2- Able to deep breathe and cough well Respiratory 2- Able to deep breathe and cough well Total Score 10 Total Score 10 Contrast: Isovue 250- 150ml Contrast Amount: 10 ml Fluoro Dose: 36 mGy Procedure Log Time Note Entered By 02:21 PM Grace Hurst RT (R) Position: Scrub Time in: 14:20 [email or web address] 02:21 PM Abbie Andrade RT (R) Position: Monitor Time in: 14:21 [email or web address] 02:22 PM Emma Saldana RN Position: Network Control Operator Time in: 14:21 [email or web address] 02:51 PM 14:51 Fentanyl 50 mcg Intravenous Given by Emma Saldana RN dspell 02:47 PM Raman completed dsp 02:47 PM Sign in performed according to hospital policy. 02:47 PM Procedure start 14:47 dspell 02:45 PM Physician arrived 14:45 dspell 02:45 PM 14:45 Patient arrived with Heparin @ 14.4 ml/hr Intravenous dspell 02:57 PM Case delayed: No, inpatient dspell 02:59 PM Hair removed from procedure site in procedure lab using clippers. Bilateral groin prepped with Chloraprep by Emma Saldana RN, safety strap applied then patient was draped. Skin intact. dspell 03:02 PM ASA Class CLASS III- Severe systemic disease (i.e. prior AMI, diabetes with vascular complications, morbid obesity) dsp: PM Time: 15:03 Is patient comfortable and pain free?: No :03 PM Time: 15:03LOC: 5 = Fully awake and oriented or at pre-proc level dsp:04 PM IV Supplies used: J loop Angio Cath. dspell 03:04 PM Patient charges- Angio tray pack, Pulse Oximetry and ACIST tubing and transducer dsp:04 PM Time out perfomed :04 PM Ultrasound, Sonosite, utilized to obtain vascular access dspell 03:05 PM 15:05 10 ml Lidocaine 2% to right groin Subcutaneous Given By Chema Adan MD dsp 03:06 PM Access obtained in the right femoral vein by percutaneous puncture. :06 PM 0.035 180cm Bentson wire utilized to assist with catheter placement dspell:07 PM 15:06 4 ml Lidocaine 2% to right groin Subcutaneous Given By Chema Adan MD dspell 03:07 PM Patient Charges- Cook Celect IVC Filter ,Tray Pack and Pulse Oximetry. 03:08 PM Access obtain and IVC Filter sheath inserted Rt Femoral vein. 03:08 PM Blood specimen collected, taken to lab dsp 03:08 PM Inferiorvenacavagram performed. 03:09 PM IVC Filter inserted into the inferior vena cava dsp 03:10 PM IVC Filter deployed into the inferior vena cava dspell 03:10 PM Inferiorvenacavagram performed. 03:10 PM Procedure completed at 15:10 dspell 03:14 PM Sign Out completed: Radiation Dose 36.17 mGy Fluoro Time: 0.7 minutes. Isovue 250- 150ml contrast 10 ml given by Chema Adan MD. Complications: None. Confirmed administered medications:Yes 03:14 PM 15:14 Fentanyl 50 mcg Intravenous Given by Emma Saldana RN 03:15 PM Arterial sheath pulled using manual compression and V+Pad for 15 minutes by Grace Hurst RT (R) 03:15 PM Post Blood Pressure: 159/90 dspell 03:15 PM Post EKG: NSR 03:16 PM Information taught: IVC filter :16 PM Education needs: Procedure, Plan of Care, and Responsibilities of Patient in Care :17 PM Learning barriers: None :17 PM Education methods: Verbal :17 PM Education evaluation: Able to repeat information :17 PM Patient pain level 5/10 dsp:19 PM Time: 15:03LOC: 5 = Fully awake and oriented or at pre-proc level :19 PM Time: 15:03 Is patient comfortable and pain free?: Yes 03:22 PM Family placed in consult room. 03:22 PM Complications: None 03:[address] Adan redressed the Left AKA :25 PM Fluoro Time: 0.7 minutes 03:25 PM Isovue 250- 150ml contrast 10 ml given by Chema Adan MD 03:28 PM Report given to Francisca DAMON. Pt taken to , Room # 47 15:28 03:32 PM Patient out of room 15:32 03:34 PM 15:33 IV Heparin drip held for [address] Adan, by Emma Saldana RN [facility] 03:34 PM Time: 15:19 Is patient comfortable and pain free?: Yes :34 PM Time: 15:19LOC: 5 = Fully awake and oriented or at pre-proc level 03:36 PM Radiation Dose 36.17 mGy 02:47 PM PVIStat 03:15 PM HR=86 bpm, MKBE=083/90 mmhg, SpO2=98 %, Resp=15 B/min 03:18 PM HR=85 bpm, OSHS=405/78 mmhg, SpO2=97 %, Resp=10 B/min 03:21 PM HR=84 bpm, CQSM=404/81 mmhg, SpO2=96.0 %, Resp=11 B/min, Comment=NSR 03:25 PM HR=78 bpm, XHOF=289/79 mmhg, SpO2=98.0 %, Resp=11 B/min, Comment=NSR 03:27 PM HR=83 bpm, APSU=446/86 mmhg, SpO2=99.0 %, Resp=9 B/min, Comment=NSR 03:30 PM HR=82 bpm, DWQF=039/93 mmhg, LgG9=548 %, Resp=12 B/min 02:47 PM Vitals capture started with the following parameters, Patient=Adult, Interval=3 min, Initial Lktvekpo=212 mmHg, Deflation Rate=5 mmHg, Cuff placed on Right Arm 02:49 PM HR=92 bpm, HJYO=891/100 mmhg, SpO2=98 %, Resp=13 B/min 02:51 PM HR=93 bpm, CRAA=428/81 mmhg, SpO2=99 %, Resp=20 B/min 02:54 PM HR=89 bpm, XALD=493/86 mmhg, SpO2=97 %, Resp=14 B/min 02:57 PM HR=88 bpm, CVUT=281/81 mmhg, SpO2=98.0 %, Resp=13 B/min, Comment=NSR 03:00 PM HR=85 bpm, YNUG=803/79 mmhg, SpO2=98.0 %, Resp=17 B/min, Comment=NSR 03:03 PM HR=86 bpm, YTWM=026/78 mmhg, SpO2=98.0 %, Resp=11 B/min, Comment=NSR 03:06 PM HR=88 bpm, NHXH=263/90 mmhg, SpO2=99.0 %, Resp=18 B/min, Comment=NSR 03:09 PM HR=89 bpm, XKIK=142/83 mmhg, SpO2=99 %, Resp=12 B/min 03:12 PM HR=87 bpm, RKYM=987/82 mmhg, SpO2=99 %, Resp=13 B/min Post Procedure Information Blood Pressure: 159/90 mmHg Rhythm: NSR Post procedure instructions given Report Given To: Liv Site Checks Time Location Status Staff Sheath In? Note 05/04/2017 3:39:00 PM Rt Groin No bleeding/ No Hematoma Grace Hurst RT (R) Pulses Time Site Pre Procedure Post Procedure Note 05/04/2017 3:38:00 PM Rt DP 2+ 2+ 05/04/2017 3:38:00 PM Rt PT 2+ 2+ Updated by Abbie Andrade, RT (R) on 05/04/2017 3:41:58 PM Abbie Andrade RT electronically signed on 05/04/2017 3:42:43 PM with status of Final
[2017-05-04] MEDS: *HR* Enoxaparin 40 MG/0.4 ML SYRINGE SQ SCH (17:37)
--- NOTE | 2017-05-04 17:48 | Invasive Diagnostic Lab ---
Name: Litzy Juan Date of Study: 05/04/2017 Date: 1965 Ht: 165.0 in Medical Record#: [id number] Age: 52 Wt: 36 lb Gender: Female BSA: 1.33 Order #: [id number] Fluoro: 36 mGy BMI: 13.22 Performing MD: Chema Adan MD Procedures Performed: IVC FILTER PLACEMENT Venography,Cava Inf S&I Indications: DVT, Unilateral Impressions: The inferior vena cava is patent without stenosis, obstruction or extravasation. Successful placement of Celect Inferior Vena Cava Filter. No complications. Recommendations: IVC filter for permanent placement. History/ Risk Factors: Diabetes Hypertension Technique After obtaining fully informed consent the patient was brought to the catheterization laboratory in the fasting state. The patient was prepped in the usual sterile fashion. Local anesthetic was infused subcutaneously in the right groin. The right femoral vein was punctured under ultrasound guidance. The vein was cannulated with an 18 gauge needle. A wire was advanced through the needle and the needle was exchanged for the filter sheath. The sheath was placed in the right Femoral vein. An inferior venacavogram was then performed. The filter sheath was then advenced to the L2-L3 interspace and the filter was deployed. A completion cavogram was then performed which revealed no extravasation of contrast, adequate infrarenal placement of the filter and no intraluminal filling defects. The sheath was removed. Manual pressure was applied to aid in hemostasis. The patient was then taken to the recovery room in stable condition. Total Contrast: Isovue 250- 150ml 10mls . Updated by Chema Adan MD on 05/04/2017 5:43:12 PM electronically signed on 05/04/2017 5:43:45 PM with status of Final
[2017-05-05] MEDS: *HR* OxyCODONE Immed Rel 5 MG TABLET PO PRN ×2 (01:40→08:46)
[2017-05-05] MEDS: *HR* Morphine Sulfate SR (12 HR) 30 MG TABLET.ER PO SCH (05:12)
[2017-05-05] MEDS: *HR* Enoxaparin 40 MG/0.4 ML SYRINGE SQ SCH (05:12)
[2017-05-05] MEDS ORDERED: Insulin LISPRO 300 UNITS/3 ML VIAL SQ SCH (08:00)
[2017-05-05] MEDS: Pregabalin 75 MG CAPSULE PO SCH (08:41)
[2017-05-05] MEDS: Nicotine 14 MG PATCH.TD24 TD SCH (08:41)
[2017-05-05] MEDS: Insulin LISPRO 300 UNITS/3 ML VIAL SQ SCH ×2 (08:41→12:06)
[2017-05-05 10:34] VITALS: BP 132/75
--- NOTE | 2017-05-05 12:13 | Discharge Summary ---
Date of Encounter: 05/05/17 Time of Encounter: 08:10 - Discharge Diagnosis (1) DVT (deep venous thrombosis) Priority: Primary Status: Acute Comments: - DVT in the L iliac - this is patient's second episode of DVT - likely secondary to malignancy and possibly complicated with Megace - Patient's first DVT episode was in March 2017 and leaded to significant left lower extremity ischemia requiring Left AKA - Patient was on Xarelto after first DVT episode - failed therapy with Xarelto - S/p IV C filter placement by Dr Adan on 05/04/2017 Given patient's significant cancer history, Lovenox is the first choice for long -term anticoagulation. Patient does not like injections, but now states she will try Lovenox at home. Explained about overall prognosis being poor. Understood and agreed. Patient wants to be discharged home today. She was advised to stay atleast one more day to get Lovenox injection, but she refused. States she is scheduled to follow up with Dr Dover on 05/08/2017. Scheduled to follow up with Dr Adan on 05/07/2017. Advised to follow up with PCP as well. Qualifiers: DVT location: lower extremity Affected thrombotic vein of extremity: iliac Chronicity: unspecified Laterality: left Qualified Code(s): I82.422 - Acute embolism and thrombosis of left iliac vein (2) Metastatic primary lung cancer Priority: Primary Status: Chronic Comments: Patient states she is scheduled to follow up with Dr Dover on 05/08/2017 Qualifiers: Laterality: right Qualified Code(s): C34.91 - Malignant neoplasm of unspecified part of right bronchus or lung (3) Chronic anemia Priority: Secondary Status: Chronic Comments: Secondary to Cancer (4) Diabetes type 2, uncontrolled Priority: Secondary Status: Chronic Comments: Type 2 DM, non-insulin dependent, hyperglycemia Qualifiers: Diabetes mellitus complication status: with circulatory complication Diabetes mellitus complication detail: with peripheral angiopathy without gangrene Diabetes mellitus exterminator insulin use: unspecified group home insulin use status Qualified Code(s): E11.51 - Type 2 diabetes mellitus with diabetic peripheral angiopathy without gangrene; E11.65 - Type 2 diabetes mellitus with hyperglycemia (5) Essential hypertension Priority: Secondary Status: Chronic Comments: controlled (6) Severe protein-calorie malnutrition Priority: Secondary Status: Chronic (7) Tobacco abuse Priority: Secondary Status: Chronic Comments: counseled about cessation, nicotine patch - Discharge Medications Prescriptions: RX: Enoxaparin [Lovenox] 40 mg SQ Q12HR 30 Days RX: Nicotine Patch [Nicoderm] 14 mg TD DAILY #30 Home Medications: RX: Diclofenac Sodium [Voltaren] 1 appl TP QID PRN 01/09/17 [History] RX: Prochlorperazine Maleate [Compazine] 10 mg PO Q6HR PRN #90 tablet 01/31/17 [ Rx] RX: Magic Mouthwash [Magic Mouthwash BLM] 10 ml PO QID PRN #240 ml 03/13/17 [Rx] RX: Lactose-Reduced Food [Ensure Enlive] 237 ml PO TID #90 liquid 03/14/17 [Rx] RX: metFORMIN [Glucophage] 500 mg PO BIDWM 03/29/17 [History] RX: Citalopram Hydrobromide [Celexa] 40 mg PO DAILY #30 tab 04/23/17 [Rx] RX: Docusate [Colace] 100 mg PO Q48H 04/23/17 [History] RX: Sennosides [Senna] 8.6 mg PO Q48H 04/23/17 [History] RX: Temazepam [Restoril] 7.5 mg PO HS #30 capsule 04/23/17 [Rx] RX: Metoprolol [Lopressor] 25 mg PO BID 05/03/17 [History] RX: Morphine Sulfate SR (12 HR) [MS Contin] 30 mg PO Q12HR 05/03/17 [History] RX: Oxycodone HCl 10 - 20 mg PO Q4H PRN 05/03/17 [History] RX: Pregabalin [Lyrica] 75 mg PO BID 05/03/17 [History] RX: Enoxaparin [Lovenox] 40 mg SQ Q12HR 30 Days 05/05/17 [Rx] RX: Nicotine Patch [Nicoderm] 14 mg TD DAILY #30 05/05/17 [Rx] Allergies/Adverse Reactions: Allergies gabapentin Allergy (Verified 04/26/17 16:20) Dizziness iodine Allergy (Verified 04/26/17 16:20) Hives metronidazole [From Flagyl] Allergy (Verified 04/26/17 16:20) Hives Penicillins Allergy (Verified 04/26/17 16:20) Anaphylaxis Date of admission: 05/04/17 15:20 Primary care physician: Mazin Wan MD Anticipated date of discharge: 05/05/17 - Patient Status Disposition: Home, Self-Care Condition: Fair Functional capacity at discharge: wheelchair bound Overall status at discharge: patient is progressing back to baseline - Discharge Instructions Follow Up With: Mazin Wan MD [Primary Care Provider] - Pablo Dover MD [Partnered Physician] - Chema Adan MD [Partnered Physician] - - Diet and Activity Activity: increase activity as tolerated Diet: advance to your usual diet Hospital course: Patient is a 52-year-old female with a past medical history of metastatic primary lung cancer, diabetes, hypertension, tobacco abuse, recent DVT status post left below-knee amputation and anxiety. She presented to the ED with concerns of left iliac DVT. Patient denied shortness of breath or hemoptysis or chest pain or any other symptoms. Patient was recently started on Xarelto and seems to failed therapy. Patient was initially started on IV heparin and then switched to Lovenox subcutaneous 1 mg/kg twice daily. Given the patient's cancer history Lovenox would be ideal for long-term anticoagulation. Patient initially refused because of fear of injections, but she eventually agreed. She stated that her daughter will be able to administer the Lovenox shots for her. Patient initially wanted to be continued on Xarelto. Vascular surgery was consulted and patient underwent IVC filter placement on 05/04/2017. Patient tolerated the procedure well. Patient stated that she felt better and wanted to go home. She was given the option to stay 1 more day to receive Lovenox shots, but she refused. She states she is scheduled to follow-up with Dr. Dover on 05/08/2017. Patient was also explained about her white count being 18.3. Etiology is unclear. Patient states she does not want to stay and wants to follow-up with her regular physicians. Patient left [id number] amputation stump is healing well and she is scheduled to follow up with Dr. Adan on 05/07/2017. Patient did not have any other acute events or complications during her stay in the hospital. She did not have a fever and was not tachycardic. She was hemodynamically stable during her stay. Patient and her daughter have been explained about her condition and plan of care in detail. They understood and agreed. No unanswered questions. Patient has been advised to continue all her home medications. She is also been advised to follow up with the primary care physician regularly. Patient is tolerating oral diet well. She ambulates using a wheelchair. Patient is being discharged in a stable condition. Time spent discussing smoking cessation with patient: 3 to 10 minutes - Time Spent with Patient Total time spent providing and/or coordinating discharge services: Greater than 30 minutes - Constitutional Vitals: Temp Pulse Resp BP Pulse Ox 98.2 F 85 16 132/75 97 05/05/17 10:32 05/05/17 10:32 05/05/17 10:32 05/05/17 10:32 05/05/17 10:32 General appearance: Present: cachectic, cooperative, A&O X 3, no acute distress , answers questions appropriately Exam: generalized weakness, ill-appearing - Head Head exam: Present: atraumatic - Eye Eye exam: Present: EOMI - ENT ENT exam: Present: mucous membranes moist - Neck Neck exam general surgery: Present: supple - Respiratory Respiratory exam: Present: CTAB. Absent: rales, rhonchi, wheezes, tachypnea - Cardiovascular Cardiovascular exam: Present: RRR, +S1, +S2. Absent: tachycardia - GI/Abdominal GI/Abdominal exam: Present: soft. Absent: distended, firm, tenderness - Extremities Exam Extremities exam: Present: radial pulses palpable and symetrical. Absent: cyanotic, pedal edema Additional comments: left AKA, stump incision healing well, no bleeding or discharge - Neurological Exam Neurological exam: Present: alert, oriented X3, no focal deficits - VTE Reasons for not Prescribing Prophylaxis: Not indicated-Anticoagulated or INR therapeutic
== END 2017-05-05 13:41 | disposition home or self-care (01) | DRG 197 ==
LOC: EMEROO 18:51 → 3NENU 18:51 → 3ANU 05-04 15:56
PROVIDERS: ADMIT Hospitalist; ATTEND Family Medicine

== ENCOUNTER 2022-06-01 16:01 | Observation (INO) ==
[2022-06-01 18:34] LABS: BUN/Creatinine Ratio 19 (6-26); Blood Urea Nitrogen 11 mg/dL (6-20); Calcium 7.3 mg/dL (8.6-10.3); Carbon Dioxide 21 mEq/L (23-29); Chloride 101 mEq/L (98-107); Glucose 480 mg/dL (70-105); INR 1.8; Osmolality,Calculated 289 (280-300); Potassium 3.9 mEq/L (3.5-5.1); Prothrombin Time 20.5 Seconds (9.4-12.1); Sodium 129 mEq/L (136-145)
[2022-06-01 18:43] LABS: Hematocrit 24.6 % (35.3-44.9); Hemoglobin 7.8 g/dL (11.5-15.4); Mean Corpuscular HGB Conc 31.7 g/dL (31.6-35.5); Mean Corpuscular Hemoglobin 31.7 pg (28.0-33.3); Mean Platelet Volume 10.6 fL (9.4-12.4); Platelet Count 506 K/mcL (140-400); Red Blood Count 2.46 M/mcL (3.82-4.97); Red Cell Distribution Width 18.2 % (11.5-14.5); White Blood Count 19.6 K/mcL (4.3-11.1)
[2022-06-01] MEDS ORDERED: Ondansetron 4 MG/2 ML VIAL IVP PRN (19:44)
[2022-06-01] MEDS ORDERED: Acetaminophen 325 MG TABLET PO PRN (19:44)
[2022-06-01] MEDS ORDERED: Melatonin 3 MG TABLET PO PRN (19:44)
[2022-06-01] MEDS ORDERED: Naloxone 0.4 MG/ML INJ IVP PRN (19:44)
[2022-06-01] MEDS ORDERED: Iopamidol - 370 500 ML MLS IVP ONE (21:35)
[2022-06-01] MEDS ORDERED: methylPREDNISolone 125 MG/2 ML VIAL IVP ONE (21:37)
[2022-06-01] MEDS ORDERED: Nicotine 2 MG GUM BC PRN (21:43)
[2022-06-01] MEDS ORDERED: Dextrose Gel 15 GM/37.5 ML TUBE PO PRN ×2 (21:45)
[2022-06-01] MEDS ORDERED: D5% in Water 1,000 ML IVC PRN (21:45)
[2022-06-01] MEDS ORDERED: *HR* Dextrose 50 % in Water (Syg) 50 ML SYRINGE IVP PRN (21:45)
[2022-06-01] MEDS ORDERED: Calcium Gluconate 1gm/50mL 1 GM/50 ML BAG IVPB SCH (22:00)
[2022-06-01] MEDS: Ipratropium/Albuterol Neb 3 ML IH SCH (23:01)
[2022-06-01] MEDS: Budesonide/Formoterol 160/4.5 1 PUFF INH IH SCH (23:01)
[2022-06-01] MEDS: *HR* HYDROcodone/Acet 5/325 mg TABLET PO PRN (23:43)
[2022-06-01] MEDS: Nicotine 21 MG PATCH.TD24 TD SCH (23:44)
[2022-06-02 03:37] LABS: Basophils % 0.2 %; Hematocrit 24.6 % (35.3-44.9); Hemoglobin 7.9 g/dL (11.5-15.4); Immature Granulocytes % 0.7 % (0-4); Lymphocytes # 0.7 K/mcL (0.6-4.6); Lymphocytes % 3.7 %; Mean Corpuscular HGB Conc 32.1 g/dL (31.6-35.5); Mean Corpuscular Hemoglobin 31.5 pg (28.0-33.3); Monocytes # 0.2 K/mcL (0.0-1.3); Monocytes % 0.9 %; Neutrophils # 18.4 K/mcL (1.6-8.9); Platelet Count 480 K/mcL (140-400); Red Blood Count 2.51 M/mcL (3.82-4.97); Red Cell Distribution Width 17.8 % (11.5-14.5); Segmented Neutrophils % 94.5 %; White Blood Count 19.5 K/mcL (4.3-11.1)
[2022-06-02 03:48] LABS: INR 1.3; Prothrombin Time 14.8 Seconds (9.4-12.1)
[2022-06-02 03:51] LABS: Activated Partial Thrombo Time 35.7 Seconds (26.0-36.0); Estimated Average Glucose 140 mg/dl; Hemoglobin A1C 6.5 %
[2022-06-02 03:59] LABS: Alanine Aminotransferase 7 Units/L (7-52); Albumin 2.1 g/dL (3.5-5.7); Albumin/Globulin Ratio 0.6 (1.1-2.2); Alkaline Phosphatase 191 Units/L (34-104); Aspartate Amino Transferase 13 Units/L (13-39); BUN/Creatinine Ratio 17 (6-26); Bilirubin,Total 0.2 mg/dL (0.3-1.0); Blood Urea Nitrogen 9 mg/dL (6-20); Calcium 7.7 mg/dL (8.6-10.3); Carbon Dioxide 23 mEq/L (23-29); Chloride 104 mEq/L (98-107); Chol/HDL Ratio 2.7 (0-4.9); Cholesterol 84 mg/dL (< 200); Globulin 3.3 g/dL (2.4-3.5); Glucose 279 mg/dL (70-105); HDL Cholesterol 31 mg/dL (40-59); LDL Cholesterol,Calculated 42 mg/dL (< 100); Magnesium 1.7 mg/dL (1.6-2.6); Osmolality,Calculated 283 (280-300); Sodium 132 mEq/L (136-145); Total Protein 5.4 g/dL (6.4-8.9); Triglycerides 55 mg/dL (< 150)
[2022-06-02] MEDS: Ipratropium/Albuterol Neb 3 ML IH SCH ×2 (04:30→10:30)
[2022-06-02] MEDS ORDERED: *HR* Heparin 5,000 UNIT/ML VIAL IVP PRN ×2 (06:28)
[2022-06-02] MEDS ORDERED: Heparin 25,000UNIT/250ML 1/2NS 25,000 UNIT/250 ML IV.SOLN IVC SCH (06:30)
[2022-06-02] MEDS: Insulin LISPRO 300 UNITS/3 ML VIAL SUBQ SCH ×6 (09:12→17:31)
[2022-06-02] MEDS: Chlorhexidine Rinse 15 ML MOUTHWASH MM SCH ×2 (09:13→20:25)
[2022-06-02] MEDS: Multivit/Ca/Min/Fe/FA 1 TAB TABLET PO SCH (09:13)
[2022-06-02] MEDS: Aspirin Enteric Coated 81 MG Tablet PO SCH (09:13)
[2022-06-02] MEDS: *HR* HYDROcodone/Acet 5/325 mg TABLET PO PRN (09:20)
[2022-06-02] MEDS: Budesonide/Formoterol 160/4.5 1 PUFF INH IH SCH (10:30)
[2022-06-02] MEDS ORDERED: Ipratropium/Albuterol Neb 3 ML IH PRN (10:51)
[2022-06-02 13:50] LABS: Folate 13.4 ng/mL (3.0-16.0)
[2022-06-02] MEDS: *HR* OxyCODONE Immed Rel 5 MG TABLET PO PRN (14:22)
[2022-06-02] MEDS ORDERED: Nitroglycerin 0.4 MG TAB.SUBL SL PRN (19:09)
[2022-06-02] MEDS ORDERED: Morphine Sulfate 2 MG/ML SYRINGE IVP ONE (19:57)
[2022-06-02] MEDS: Nicotine 21 MG PATCH.TD24 TD SCH (20:25)
[2022-06-02] MEDS ORDERED: Insulin DETEMIR 100 UNIT/ML X5UNITS SUBQ SCH (21:00)
[2022-06-03 04:57] LABS: Hematocrit 23.5 % (35.3-44.9); Hemoglobin 7.4 g/dL (11.5-15.4); Mean Corpuscular HGB Conc 31.5 g/dL (31.6-35.5); Mean Corpuscular Hemoglobin 31.1 pg (28.0-33.3); Mean Corpuscular Volume 98.7 fL (83.0-100.0); Mean Platelet Volume 10.1 fL (9.4-12.4); Platelet Count 487 K/mcL (140-400); Red Blood Count 2.38 M/mcL (3.82-4.97); Red Cell Distribution Width 18.3 % (11.5-14.5); White Blood Count 24.2 K/mcL (4.3-11.1)
[2022-06-03 05:04] LABS: INR 1.2; Prothrombin Time 13.5 Seconds (9.4-12.1)
[2022-06-03 05:07] LABS: Activated Partial Thrombo Time 58.7 Seconds (26.0-36.0)
[2022-06-03 05:18] LABS: % Iron Saturation 9 % (15-50); BUN/Creatinine Ratio 16 (6-26); Blood Urea Nitrogen 11 mg/dL (6-20); Calcium 7.2 mg/dL (8.6-10.3); Carbon Dioxide 22 mEq/L (23-29); Chloride 106 mEq/L (98-107); Glucose 283 mg/dL (70-105); Iron 17 mcg/dL (50-170); Osmolality,Calculated 288 (280-300); Potassium 3.6 mEq/L (3.5-5.1); Sodium 134 mEq/L (136-145); Transferrin 142 mg/dL (203-362)
[2022-06-03 05:19] LABS: Troponin I < 0.03 ng/mL (< 0.04)
[2022-06-03 07:22] VITALS: BP 138/78; TEMP 97.9
[2022-06-03 07:23] VITALS: PULSE 91
[2022-06-03] MEDS: *HR* OxyCODONE Immed Rel 5 MG TABLET PO PRN (07:43)
[2022-06-03] MEDS: Insulin LISPRO 300 UNITS/3 ML VIAL SUBQ SCH ×2 (07:44→07:46)
[2022-06-03] MEDS: Multivit/Ca/Min/Fe/FA 1 TAB TABLET PO SCH (07:44)
[2022-06-03] MEDS: Aspirin Enteric Coated 81 MG Tablet PO SCH (07:44)
[2022-06-03] MEDS: Chlorhexidine Rinse 15 ML MOUTHWASH MM SCH (07:45)
[2022-06-03] MEDS ORDERED: ASPIRIN 81 MG PO SCH (09:00)
[2022-06-03] MEDS ORDERED: PrednisoLONE Acetate 1% Opth 5 ML BOTTLE BOTH EYES SCH (09:00)
[2022-06-03 09:58] VITALS: O2SAT 98
[2022-06-03] MEDS ORDERED: Budesonide/Formoterol 160/4.5 1 PUFF INH IH SCH (10:00)
[2022-06-03] MEDS ORDERED: QUEtiapine Fumarate 25 MG TABLET PO SCH (21:00)
== END 2022-06-03 11:45 | disposition home or self-care (01) ==
LOC: 3NENU 16:01 → EMEROOARM 16:01 → SUATTDRO 19:35 → 3NENU 20:30
PROVIDERS: ADMIT Internal Medicine; ATTEND Internal Medicine

== ENCOUNTER 2022-06-08 22:05 | Observation (INO) ==
[2022-06-09 01:55] LABS: Immature Granulocytes % 1.1 % (0-4); Lymphocytes % 2.8 %; Mean Corpuscular HGB Conc 32.3 g/dL (31.6-35.5); Monocytes % 8.4 %
[2022-06-09 01:57] LABS: Basophils # 0.1 K/mcL (0.0-0.2); Basophils % 0.2 %; Hematocrit 26.3 % (35.3-44.9); Hemoglobin 8.5 g/dL (11.5-15.4); Mean Corpuscular Hemoglobin 30.5 pg (28.0-33.3); Mean Corpuscular Volume 94.3 fL (83.0-100.0); Mean Platelet Volume 9.8 fL (9.4-12.4); Platelet Count 520 K/mcL (140-400); Red Blood Count 2.79 M/mcL (3.82-4.97); Red Cell Distribution Width 17.1 % (11.5-14.5); Segmented Neutrophils % 87.5 %
[2022-06-09 02:04] LABS: Neutrophils # 31.2 K/mcL (1.6-8.9); White Blood Count 35.6 K/mcL (4.3-11.1)
[2022-06-09] MEDS ORDERED: methylPREDNISolone 125 MG/2 ML VIAL IVP ONE ×2 (02:08→02:35)
[2022-06-09 02:18] LABS: BUN/Creatinine Ratio 22 (6-26); Blood Urea Nitrogen 11 mg/dL (6-20); Carbon Dioxide 23 mEq/L (23-29); Chloride 102 mEq/L (98-107); Glucose 163 mg/dL (70-105); Osmolality,Calculated 279 (280-300); Potassium 4.4 mEq/L (3.5-5.1); Sodium 133 mEq/L (136-145); Troponin I < 0.03 ng/mL (< 0.04)
[2022-06-09 03:32] LABS: VBG HCO3 22 mEq/L (21-27); VBG PCO2 38 mmHg (41-51); VBG PH 7.37 pH Units (7.32-7.42); VBG PO2 108 mmHg (25-50)
[2022-06-09] MEDS ORDERED: Iopamidol - 370 500 ML MLS IVP ONE (03:49)
[2022-06-09 03:55] LABS: Influenza A PCR Negative (Negative); Influenza B PCR Negative (Negative); Resp. Syncytial Virus PCR Negative (Negative)
[2022-06-09 04:03] LABS: SARS-CoV-2 by PCR (In House) Negative (Negative)
[2022-06-09] MEDS ORDERED: 0.9 % Sodium Chloride 1,000 ML IV ONE (06:13)
[2022-06-09] MEDS ORDERED: Vancomycin 500 MG in 0.9 % Sodium Chloride 250 ML IVPB SCH ×2 (07:00→10:00)
[2022-06-09] MEDS ORDERED: Vancomycin 500 MG in 0.9 % Sodium Chloride Mini Bag 100 ML IVPB ONE (07:00)
[2022-06-09] MEDS ORDERED: Aztreonam 500 MG in 0.9 % Sodium Chloride 50 ML IVPB SCH (08:00)
[2022-06-09] MEDS ORDERED: Ondansetron 4 MG/2 ML VIAL IVP PRN (09:32)
[2022-06-09] MEDS ORDERED: Ipratropium/Albuterol Neb 3 ML IH SCH (09:32)
[2022-06-09] MEDS ORDERED: *HR* LORazepam 0.5 MG TABLET PO PRN (10:22)
[2022-06-09] MEDS: MethylPREDNISolone 40 MG/ML VIAL IVP SCH ×3 (14:24→23:58)
[2022-06-09] MEDS: Ipratropium/Albuterol Neb 3 ML IH SCH ×2 (14:50→21:44)
[2022-06-09] MEDS: Cefepime HCl 2,000 MG in 0.9 % Sodium Chloride 10 ML IVP SCH ×2 (16:19→23:57)
[2022-06-09] MEDS: *HR* Rivaroxaban 10 MG TABLET PO SCH ×2 (22:23→22:29)
[2022-06-09] MEDS: OxyCODONE Immed Rel 15 MG, OxyCODONE Immed Rel 5 MG PO PRN (22:36)
[2022-06-10 03:43] LABS: Basophils % 0.2 %; Mean Platelet Volume 10.2 fL (9.4-12.4)
[2022-06-10 03:45] LABS: Basophils # 0.1 K/mcL (0.0-0.2); Hematocrit 22.8 % (35.3-44.9); Hemoglobin 7.4 g/dL (11.5-15.4); Immature Granulocytes % 1.9 % (0-4); Lymphocytes # 0.7 K/mcL (0.6-4.6); Lymphocytes % 1.9 %; Mean Corpuscular HGB Conc 32.5 g/dL (31.6-35.5); Mean Corpuscular Hemoglobin 30.8 pg (28.0-33.3); Monocytes # 1.1 K/mcL (0.0-1.3); Monocytes % 2.8 %; Platelet Count 469 K/mcL (140-400); Red Cell Distribution Width 17.1 % (11.5-14.5); Segmented Neutrophils % 93.2 %
[2022-06-10 03:52] LABS: White Blood Count 38.6 K/mcL (4.3-11.1)
[2022-06-10] MEDS: Ipratropium/Albuterol Neb 3 ML IH SCH ×4 (04:00→21:14)
[2022-06-10 04:02] LABS: BUN/Creatinine Ratio 25 (6-26); Blood Urea Nitrogen 14 mg/dL (6-20); Calcium 7.6 mg/dL (8.6-10.3); Carbon Dioxide 21 mEq/L (23-29); Chloride 106 mEq/L (98-107); Glucose 263 mg/dL (70-105); Magnesium 1.7 mg/dL (1.6-2.6); Osmolality,Calculated 284 (280-300); Potassium 3.9 mEq/L (3.5-5.1); Sodium 132 mEq/L (136-145)
[2022-06-10 04:10] LABS: Anisocytosis 1+ (Not Present); Platelet Estimate Normal (Normal); Poikilocytosis 1+ (Not Present); Smudge Cells Present (Not Present); Target Cells 1+ (Not Present)
[2022-06-10] MEDS ORDERED: Vancomycin 500 MG in 0.9 % Sodium Chloride Mini Bag 100 ML IVPB SCH (07:00)
[2022-06-10] MEDS: Cefepime HCl 2,000 MG in 0.9 % Sodium Chloride 10 ML IVP SCH ×2 (08:06→15:29)
[2022-06-10] MEDS: MethylPREDNISolone 40 MG/ML VIAL IVP SCH ×2 (08:07→15:29)
[2022-06-10] MEDS ORDERED: *HR* OxyCODONE Immed Rel 5 MG TABLET PO PRN (10:54)
[2022-06-10] MEDS: Aspirin Enteric Coated 81 MG Tablet PO SCH (11:44)
[2022-06-10] MEDS: OxyCODONE Immed Rel 15 MG, OxyCODONE Immed Rel 5 MG PO PRN (12:27)
[2022-06-10] MEDS: PrednisoLONE Acetate 1% Opth 5 ML BOTTLE BOTH EYES SCH ×3 (13:30→21:12)
[2022-06-10] MEDS: *HR* Rivaroxaban 10 MG TABLET PO SCH (16:38)
[2022-06-10] MEDS ORDERED: D5% in Water 1,000 ML IVC PRN (16:51)
[2022-06-10] MEDS ORDERED: Dextrose Gel 15 GM/37.5 ML TUBE PO PRN ×2 (16:51)
[2022-06-10] MEDS ORDERED: *HR* Dextrose 50 % in Water (Syg) 50 ML SYRINGE IVP PRN (16:51)
[2022-06-10] MEDS: Morphine Sulfate ER (12 HR) 30 MG TABLET.ER PO SCH (20:16)
[2022-06-10] MEDS: Nicotine 21 MG PATCH.TD24 TD SCH (20:17)
[2022-06-10] MEDS: QUEtiapine Fumarate 25 MG TABLET PO SCH (20:17)
[2022-06-10] MEDS: Insulin DETEMIR 100 UNIT/ML X5UNITS SUBQ SCH (20:21)
[2022-06-10] MEDS: Insulin LISPRO 300 UNITS/3 ML VIAL SUBQ SCH (21:11)
[2022-06-10] MEDS: Budesonide/Formoterol 160/4.5 1 PUFF INH IH SCH (21:14)
[2022-06-11] MEDS: Cefepime HCl 2,000 MG in 0.9 % Sodium Chloride 10 ML IVP SCH ×3 (00:09→17:14)
[2022-06-11] MEDS: MethylPREDNISolone 40 MG/ML VIAL IVP SCH ×2 (03:40→13:50)
[2022-06-11 04:12] LABS: Basophils % 0.1 %; Lymphocytes % 4.4 %
[2022-06-11 04:13] LABS: Hematocrit 23.7 % (35.3-44.9); Hemoglobin 7.5 g/dL (11.5-15.4); Immature Granulocytes % 0.9 % (0-4); Lymphocytes # 1.2 K/mcL (0.6-4.6); Mean Corpuscular HGB Conc 31.6 g/dL (31.6-35.5); Mean Corpuscular Hemoglobin 30.1 pg (28.0-33.3); Mean Corpuscular Volume 95.2 fL (83.0-100.0); Mean Platelet Volume 9.9 fL (9.4-12.4); Monocytes # 2.1 K/mcL (0.0-1.3); Monocytes % 7.4 %; Platelet Count 482 K/mcL (140-400); Red Blood Count 2.49 M/mcL (3.82-4.97); Red Cell Distribution Width 16.9 % (11.5-14.5); Segmented Neutrophils % 87.2 %; White Blood Count 27.8 K/mcL (4.3-11.1)
[2022-06-11 04:16] LABS: Neutrophils # 24.2 K/mcL (1.6-8.9)
[2022-06-11 04:22] LABS: Alanine Aminotransferase 9 Units/L (7-52); Albumin 2.1 g/dL (3.5-5.7); Albumin/Globulin Ratio 0.6 (1.1-2.2); Alkaline Phosphatase 137 Units/L (34-104); Aspartate Amino Transferase 18 Units/L (13-39); BUN/Creatinine Ratio 17 (6-26); Bilirubin,Total 0.2 mg/dL (0.3-1.0); Blood Urea Nitrogen 12 mg/dL (6-20); Calcium 7.6 mg/dL (8.6-10.3); Carbon Dioxide 23 mEq/L (23-29); Chloride 109 mEq/L (98-107); Globulin 3.5 g/dL (2.4-3.5); Glucose 208 mg/dL (70-105); Magnesium 1.8 mg/dL (1.6-2.6); Osmolality,Calculated 288 (280-300); Potassium 3.5 mEq/L (3.5-5.1); Sodium 136 mEq/L (136-145); Total Protein 5.6 g/dL (6.4-8.9)
[2022-06-11] MEDS: Ipratropium/Albuterol Neb 3 ML IH SCH ×4 (04:26→22:28)
[2022-06-11 04:38] LABS: Anisocytosis 1+ (Not Present); Poikilocytosis 1+ (Not Present); Target Cells 1+ (Not Present)
[2022-06-11] MEDS: OxyCODONE Immed Rel 15 MG, OxyCODONE Immed Rel 5 MG PO PRN (04:50)
[2022-06-11] MEDS: Aspirin Enteric Coated 81 MG Tablet PO SCH (08:18)
[2022-06-11] MEDS: Morphine Sulfate ER (12 HR) 30 MG TABLET.ER PO SCH ×2 (08:18→22:54)
[2022-06-11] MEDS: PrednisoLONE Acetate 1% Opth 5 ML BOTTLE BOTH EYES SCH ×3 (08:19→17:13)
[2022-06-11] MEDS: Insulin LISPRO 300 UNITS/3 ML VIAL SUBQ SCH ×4 (08:23→22:55)
[2022-06-11] MEDS: Budesonide/Formoterol 160/4.5 1 PUFF INH IH SCH ×2 (11:34→22:28)
[2022-06-11] MEDS ORDERED: Iron Sucrose Complex 400 MG in 0.9 % Sodium Chloride 250 ML IVPB ONE (16:33)
[2022-06-11] MEDS: *HR* Rivaroxaban 10 MG TABLET PO SCH (17:13)
[2022-06-11] MEDS: QUEtiapine Fumarate 25 MG TABLET PO SCH (22:54)
[2022-06-11] MEDS: Nicotine 21 MG PATCH.TD24 TD SCH (22:54)
[2022-06-11] MEDS: Insulin DETEMIR 100 UNIT/ML X5UNITS SUBQ SCH (22:55)
[2022-06-12] MEDS: PrednisoLONE Acetate 1% Opth 5 ML BOTTLE BOTH EYES SCH ×3 (02:15→12:18)
[2022-06-12] MEDS: MethylPREDNISolone 40 MG/ML VIAL IVP SCH (02:38)
[2022-06-12] MEDS: Cefepime HCl 2,000 MG in 0.9 % Sodium Chloride 10 ML IVP SCH ×2 (02:39→08:22)
[2022-06-12] MEDS: Ipratropium/Albuterol Neb 3 ML IH SCH ×2 (04:27→11:50)
[2022-06-12 05:53] LABS: Hematocrit 25.8 % (35.3-44.9); Hemoglobin 8.2 g/dL (11.5-15.4); Mean Corpuscular HGB Conc 31.8 g/dL (31.6-35.5); Mean Corpuscular Hemoglobin 29.6 pg (28.0-33.3); Mean Corpuscular Volume 93.1 fL (83.0-100.0); Platelet Count 524 K/mcL (140-400); Red Blood Count 2.77 M/mcL (3.82-4.97); Red Cell Distribution Width 17.3 % (11.5-14.5)
[2022-06-12 05:59] LABS: White Blood Count 31.2 K/mcL (4.3-11.1)
[2022-06-12 06:09] LABS: Alanine Aminotransferase 12 Units/L (7-52); Albumin 2.4 g/dL (3.5-5.7); Albumin/Globulin Ratio 0.6 (1.1-2.2); Alkaline Phosphatase 163 Units/L (34-104); Aspartate Amino Transferase 20 Units/L (13-39); BUN/Creatinine Ratio 13 (6-26); Bilirubin,Total 0.4 mg/dL (0.3-1.0); Blood Urea Nitrogen 9 mg/dL (6-20); Calcium 8.3 mg/dL (8.6-10.3); Carbon Dioxide 25 mEq/L (23-29); Chloride 103 mEq/L (98-107); Globulin 3.7 g/dL (2.4-3.5); Glucose 239 mg/dL (70-105); Osmolality,Calculated 282 (280-300); Sodium 133 mEq/L (136-145); Total Protein 6.1 g/dL (6.4-8.9)
[2022-06-12] MEDS: Morphine Sulfate ER (12 HR) 30 MG TABLET.ER PO SCH (08:23)
[2022-06-12] MEDS: Aspirin Enteric Coated 81 MG Tablet PO SCH (08:23)
[2022-06-12] MEDS: Insulin LISPRO 300 UNITS/3 ML VIAL SUBQ SCH ×2 (08:24→12:19)
[2022-06-12] MEDS ORDERED: predniSONE 20 MG TABLET PO SCH (09:00)
[2022-06-12] MEDS: Budesonide/Formoterol 160/4.5 1 PUFF INH IH SCH (11:50)
[2022-06-12 14:43] VITALS: BP 121/73; PULSE 112; TEMP 97.5; O2SAT 93
[2022-06-12] MEDS ORDERED: Fluconazole 100 MG TABLET PO SCH (15:30)
[2022-06-12] MEDS ORDERED: Cefepime HCl 2,000 MG in 0.9 % Sodium Chloride 10 ML IVP SCH (20:00)
== END 2022-06-12 15:52 | disposition home or self-care (01) ==
LOC: EMEROOARM 22:05 → 3ANU 22:05 → SUATTDRO 06-09 16:39 → 3ANU 06-09 17:57
PROVIDERS: ADMIT Internal Medicine; ATTEND Internal Medicine